=== PATIENT | female | born 1960 | race Caucasian/White ===

== ENCOUNTER 2016-08-16 10:05 | Emergency (ER) | payer BC, OTHER ==
[~2016-08-16] VITALS: Ht 165.1 cm; Wt 90.5 kg
[~2016-08-16 10:05] MED LIST: ALBU0.632 IH; ALBU1.25 IH; AZIT-21 PO; AZIT250T PO; BENZ-13 PO; CEPH500C PO; CETI10TA20 PO; CITA10TA7 PO; CYCL10TA9 PO; DIPH1TAB45 PO; DOXY100C42 PO; EFFEXOR; ESOM20SU PO; ESOM5SUS PO; EST.625T PO; FURO40TA4 PO; HYDR-2889 PO; HYDR-3816 PO; LEVO500T69 PO; LOVA20TA2 PO; LVT.1T PO; MELO-195 PO; MNTL10T PO; MOME13HF2 IH; MONT10TA21 PO; MTF500T PO; NAPR500T PO; NF-ESOM40C PO; ONDA-42 SL; PHEN118S12 PO; POTA10TA6 PO; POTASSIUM PO; PRCD5U PO; PRD20T PO; PRED10TA PO; PREMARIN; PRM25T PO; RT-ALBUINH IH; SCR1T PO; TOLT4CAP PO; TOLT4CAP13 PO; TOPAMAX; TOPI50TA2 PO; TPR100T PO; TRAM-21 PO; TRAM50TA2 PO; TRIA1CAP6 PO; TRIA1TAB2 PO; TRIA1TAB5 PO; VENL150C PO; [UNRECOGNIZED DRUG - OTHER] PO
--- NOTE | 2016-08-16 10:34 | Diagnostic Imaging Report ---
INDICATION: Cough and sore throat. COMPARISON: 07/21/2015. FINDINGS: Frontal and lateral views of the chest demonstrate clear lungs bilaterally. The heart size is normal. There is no pneumothorax. Osseous structures are normal. IMPRESSION: Negative chest. Dictated by: Dictated on workstation # [id number]
--- NOTE | 2016-08-16 10:52 | ED General ---
General Chief Complaint: Cough/Cold/Flu Symptoms Stated Complaint: SORE THROAT, COUGHING Nursing Triage Note: pt reports cough/sore throat since thursday. Pt also reports sore on nose since april. Nursing Sepsis Screen: No Definite Risk Source of Information: Patient Exam Limitations: No Limitations History of Present Illness Time Seen by Provider: 10:08 Initial Comments Patient presents with complaints of cough 4 days and fever at home. Cough is barky in nature. She does have asthma and uses inhalers. She had diarrhea Thursday and but none yesterday. She has soreness and fullness in her throat with enlarged lymph nodes. Her jaw felt stiff this morning. She also complains of a nonhealing lesion in the right nostril which has been present since April. Dr. Bedolla is her primary care provider. 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 Allergies and Home Medications Allergies Coded Allergies: morphine (Verified Allergy, Mild, RASH, ITCHING, AGITATION, 08/31/13) Home Medications Albuterol Sulfate 0.63 Mg/3 Ml Vial.neb 3 ML IH Q 4 - 6 HRS PRN PRN PRN SHORTNESS OF BREATH (Reported) Albuterol Sulfate 1.25 Mg/3 Ml Vial.neb #1 1.25 MG IH Q4H PRN PRN WHEEZING Prescribed by: MIRACLE CHAMBERS on 07/21/15 1137 Albuterol Sulfate 6.7 Gm Hfa.aer.ad #1 2 PUFF IH Q4H PRN PRN WHEEZING Prescribed by: MIRACLE CHAMBERS on 07/21/15 1137 Azithromycin 250 Mg Tablet #6 250 MG PO UD TAKE 2 TABLETS TODAY, THEN TAKE 1 TABLET DAILY FOR 4 MORE DAYS Prescribed by: MIRACLE CHAMBERS on 07/21/15 1137 Azithromycin 250 Mg Tablet #6 250 MG PO UD TAKE 2 TABLETS ON DAY ONE THEN TAKE 1 TABLET DAILY FOR FOUR MORE DAYS Prescribed by: CALI DICKERSON on 08/16/16 1107 Benzonatate 100 Mg Capsule 14Days 200 MG PO TID PRN PRN COUGH Prescribed by: MIRACLE CHAMBERS on 07/21/15 1137 Cetirizine HCl 10 Mg Tablet #30 10 MG PO DAILY Prescribed by: PEDRO HAYDEN on 02/24/14 1142 Citalopram Hydrobromide 10 Mg Tablet 10 MG PO DAILY (Reported) Cyclobenzaprine HCl 10 Mg Tablet #14 10 MG PO Q8H PRN PRN SPASMS Prescribed by: TELMA BARRY on 07/31/151806 Esomeprazole Mag Trihydrate 40 Mg Capsule.dr 40 MG PO HS (Reported) PT. TAKES DELAYED RELEASE CAPSULES AT HOME Hydrocodone/Acetaminophen 1 Each Tablet 1 EACH PO Q4H (Reported) Levothyroxine Sodium 100 Mcg Tablet 100 MCG PO HS (Reported) Metformin Hcl 500 Mg Tablet 500 MG PO IN MORNING (Reported) Mometasone/Formoterol 13 Gm Hfa.aer.ad 2 PUFF IH BID (Reported) Montelukast Sodium 10 Mg Tablet 10 MG PO DAILY (Reported) Potassium Chloride 10 Meq Tablet.sa 20 MEQ PO BID (Reported) TAKES 2 (10MEQ) TABLETS Prednisone 20 Mg Tab #10 20 MG PO BID Prescribed by: MIRACLE CHAMBERS on 07/21/15 113 Tolterodine Tartrate 4 Mg Cap.er.24h 4 MG PO DAILY (Reported) Topiramate 50 Mg Tablet 50 MG PO HS (Reported) MAY TAKE 2 TABLET DAILY Tramadol HCl 50 Mg Tablet #20 50 MG PO Q4H PRN PRN PAIN Prescribed by: TELMA BARRY on 07/31/151806 Triamterene/Hydrochlorothiazid 1 Each Tablet 1 TAB PO HS (Reported) Venlafaxine Hcl 150 Mg Cap.sr.24h 150 MG PO HS (Reported) Constitutional: no symptoms reported EENTM: see HPI Respiratory: see HPI Cardiovascular: no symptoms reported Gastrointestinal: no symptoms reported Genitourinary: no symptoms reported Musculoskeletal: no symptoms reported Skin: no symptoms reported Psychiatric/Neurological: No Symptoms Reported Hematologic/Lymphatic: No Symptoms Reported Past Ilhmsyj-Tsamro-Drkvlm Hx Patient Social History Alcohol Use: Denies Use Recreational Drug Use: No Smoking Status: Never a Smoker Recent Foreign Travel: No Contact w/Someone Who Travel: No Recent Infectious Disease Expo: No Recent Hopitalizations: No Immunizations Up To Date Tetanus Booster (TDap): More than 5yrs PED Vaccines UTD: No Date of Pneumonia Vaccine: Feb 08, 2013 Date of Influenza Vaccine: Jan 30, 2014 Seasonal Allergies Seasonal Allergies: Yes Surgeries HX Surgeries: Yes (EGD/COLONOSCOPY) Surgeries: Appendectomy, Gallbladder, Hysterectomy, Oophorectomy Respiratory Hx Respiratory Disorders: Yes Respiratory Disorders: Asthma, Chronic Bronchitis Cardiovascular Hx Cardiac Disorders: Yes Cardiac Disorders: Chronic Edema/Swelling, High Cholesterol Neurological Hx Neurological Disorders: Yes Neurological Disorders: Headaches /Migraines Reproductive System Hx Reproductive Disorders: No 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 Genitourinary Hx Genitourinary Disorders: Yes (BLADDER CONTROL ISSUES) Gastrointestinal Hx Gastrointestinal Disorders: Yes Gastrointestinal Disorders: Gastroesophageal Reflux, Ulcer Musculoskeletal Hx Musculoskeletal Disorders: Yes (TORN MENISCUS, RUPTURED DISC) Musculoskeletal Disorders: Chronic Back Pain Endocrine Hx Endocrine Disorders: Yes Endocrine Disorders: Hypothyroidsim, Diabetes, Non-Insulin dep HEENT HX ENT Disorders: No Cancer Hx Cancer: No Psychosocial Hx Psychiatric Problems: Yes Behavioral Health Disorders: Anxiety, Depression Integumentary HX Skin/Integumentary Disorder: No Blood Transfusions Hx Blood Disorders: No Family Medical History Significant Family History: No Pertinent Family Hx Family Medial History: Abdominal aortic aneurysm MATERNAL GRANDMOTHER Cancer 03 FATHER (PANCREATIC) Cataract MATERNAL GRANDFATHER Chest pain 03 FATHER Congestive heart failure 03 FATHER Family history: Arthritis 03 MOTHER MATERNAL GRANDMOTHER Family history: Breast disease PATERNAL GRANDMOTHER1 Family history: Cardiovascular disease 03 MOTHER Family history: Diabetes mellitus 03 FATHER Family history: Gastrointestinal disease 03 FATHER Family history: Glaucoma 03 MOTHER Family history: Hypertension 03 FATHER Family history: Osteoporosis 03 MOTHER MATERNAL GRANDMOTHER Headache 03 MOTHER Hearing loss Heart disease 03 FATHER History of - respiratory disease 03 FATHER Human immunodeficiency virus (HIV) seropositivity 09 BROTHER Hypercholesterolemia 03 FATHER 03 MOTHER Myocardial infarction 03 FATHER Prostate cancer MATERNAL GRANDFATHER No Family History of: AIDS Alcoholism Aphasia Cancer of colon Congenital heart disease Cystic fibrosis Dementia Dysphagia Family history: Alzheimer's disease Family history: Thyroid disorder History of - anemia History of drug abuse Infertile Kidney disease Malignant neoplasm of lung Parkinson's disease Psychotic disorder Seizure disorder Stroke Tuberculosis Visual impairment Physical Exam Vital Signs Vital Sign - Last 12Hours 08/16/16 10:15 Temp 99.1 Pulse 101 Resp 18 B/P 95/75 Pulse Ox 97 O2 Delivery Room Air Capillary Refill : Less Than 3 Seconds General Appearance: No Apparent Distress WD/WN Obese HEENT: PERRL/EOMI Normal ENT Inspection Other (effusion behind the left TM. Posterior pharyngeal erythema and edema. Palatal petechiae.) Neck: Supple Lymphadenopathy (L) Lymphadenopathy (R) Respiratory: No Accessory Muscle Use No Respiratory Distress Other (mild rhonchi and wheezing. 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 Norm as Tested Skin: Normal Color Warm/Dry Progress/Results/Core Measures Results/Orders Lab Results Laboratory Tests Test 08/16/16 10:12 Range/Units Group A Streptococcus Screen NEGATIVE NEGATIVE Micro Results Microbiology 08/16/16 Influenza Types A,B Antigen (YOAN) - Final, Complete My Orders Orders-CALI CRISTINA MD Rapid Strep A Screen (08/16/16 10:08) Influenza A And B Antigens (08/16/16 10:08) Chest Pa/Lat (2 View) (08/16/16 10:17) Vital Signs/I&O Vital Sign - Last 12Hours 08/16/16 08/16/16 08/16/16 10:15 10:27 11:13 Temp 99.1 99.1 Pulse 101 89 Resp 18 18 B/P 95/75 Pulse Ox 97 98 O2 Delivery Room Air Room Air Blood Pressure Mean: 82 Progress Note : Progress Note Chest x-ray, influenza screen, and rapid strep screen were all negative. Patient was prescribed azithromycin as her throat exam was suspicious for strep pharyngitis. She had posterior pharyngeal erythema and swelling as well as palatal petechiae. The azithromycin may also help with her bronchitis. Diagnostic Imaging Diagonstic Imaging: Xray Plain Films/CT/US/NM/MRI: chest Comments Chest x-ray viewed by me and report reviewed. See report below: NAME: FELIX MENDOZA [facility] REC#: [id number] PT STATUS: REG ER : 1960 PHYSICIAN: CALI RCISTINA MD ADMIT DATE: 08/16/16/ER Draft Date of Exam:08/16/16 CHEST PA/LAT (2 VIEW) INDICATION: Cough and sore throat. COMPARISON: 07/21/2015. FINDINGS: Frontal and lateral views of the chest demonstrate clear lungs bilaterally. The heart size is normal. There is no pneumothorax. Osseous structures are normal. IMPRESSION: Negative chest. Dictated on workstation # [id number] Dict: 08/16/16 1030 Trans: 08/16/16 1034 [id number] Interpreted by: ROD SANTAMARIA Departure Impression Impression: Primary Impression: Acute bronchitis Qualified Code: J20.9 - Acute bronchitis, unspecified Additional Impressions: Pharyngitis Qualified Code: J02.9 - Acute pharyngitis, unspecified Internal nasal lesion Disposition: HOME, SELF-CARE Condition: Improved Departure-Patient Inst. Decision time for Depature: 10:50 Referrals: MAXIMILIAN BEDOLLA MD (PCP/Family) Primary Care Physician Patient Instructions: Acute Bronchitis, Adult (DC) Add. Discharge Instructions: Complete your antibiotics as prescribed. Replace your toothbrush and any other oral instruments 3 or 4 days into your antibiotic therapy. Use your inhalers as prescribed. Return to care if symptoms worsen or you are not improving after antibiotic therapy. Seek referral to an ENT for evaluation of your internal nasal lesion. All discharge instructions reviewed with patient and/or family. Voiced understanding. Scripts Azithromycin 250 Mg [id number] Mg PO UD #6 TAB TAKE 2 TABLETS ON DAY ONE THEN TAKE 1 TABLET DAILY FOR FOUR MORE DAYS Prov:CALI CRISTINA MD 08/16/16 Copy Copies To 1: MAXIMILIAN BEDOLLA MD, JOSHUA T MD Aug 16, 2016 10:52
[2016-08-16] MEDS ORDERED: AZIT250T5 PO (11:07)
[2016-08-16 11:13] VITALS: BP 106/68
== END 2016-08-16 11:13 | disposition home or self-care (01) ==
LOC: EDUNIT# 10:05 → ER 10:06
DX: J20.9 Acute bronchitis, unspecified (principal); J02.9 Acute pharyngitis, unspecified; E11.9 Type 2 diabetes mellitus without complications; Z79.84 Long term (current) use of oral hypoglycemic drugs; Z79.899 Other long term (current) drug therapy
CPT/HCPCS: 71020; 87430; 87804; 99285

== ENCOUNTER 2016-11-10 22:10 | Emergency (ER) | payer BC, OTHER ==
[~2016-11-10] VITALS: Ht 162.6 cm; Wt 93.4 kg
[~2016-11-10 22:10] MED LIST changes: +AZIT250T5 PO
--- NOTE | 2016-11-10 22:23 | ED Lower Extremity ---
General Chief Complaint: Lower Extremity Stated Complaint: PT INJ RT SLATER/SWELLING Source: patient Exam Limitations: no limitations History of Present Illness Time seen by provider: 22:22 Initial Comments To ER with pain and swelling to the right anterior slater. She was helping load a riding lawnmower onto a tilt trailer. The trailer was in the low position but it tilted upward scraping the right anterior leg about 8 p.m. Since then she's had persistent pain swelling and oozing of blood. She is not up-to-date on her tetanus. She is weightbearing. Onset: just prior to arrival Severity: moderate Pain/Injury Location: right leg Method of Injury: direct blow Modifying Factors: Worse With Movement Allergies and Home Medications Allergies Coded Allergies: morphine (Verified Allergy, Mild, RASH, ITCHING, AGITATION, 08/31/13) Home Medications Albuterol Sulfate 0.63 Mg/3 Ml Vial.neb, 3 ML IH Q 4 - 6 HRS PRN PRN for SHORTNESS OF BREATH, (Reported) Albuterol Sulfate 1.25 Mg/3 Ml Vial.neb, 1.25 MG IH Q4H PRN for WHEEZING, #1 Prescribed by: MIRACLE CHAMBERS on 07/21/15 1137 Albuterol Sulfate 6.7 Gm Hfa.aer.ad, 2 PUFF IH Q4H PRN for WHEEZING, #1 Prescribed by: MIRACLE CHAMBERS on 07/21/15 1137 Azithromycin 250 Mg Tablet, 250 MG PO UD, #6 TAKE 2 TABLETS TODAY, THEN TAKE 1 TABLET DAILY FOR 4 MORE DAYS Prescribed by: MIRACLE CHAMBERS on 07/21/15 1137 Azithromycin 250 Mg Tablet, 250 MG PO UD, #6 TAKE 2 TABLETS ON DAY ONE THEN TAKE 1 TABLET DAILY FOR FOUR MORE DAYS Prescribed by: CALI DICKERSON on 08/16/16 1107 Benzonatate 100 Mg Capsule, 200 MG PO TID PRN for COUGH for 14 Days Prescribed by: MIRACLE CHAMBERS on 07/21/15 1137 Cetirizine HCl 10 Mg Tablet, 10 MG PO DAILY, #30 Prescribed by: PEDRO HAYDEN on 02/24/14 1142 Citalopram Hydrobromide 10 Mg Tablet, 10 MG PO DAILY, (Reported) Cyclobenzaprine HCl 10 Mg Tablet, 10 MG PO Q8H PRN for SPASMS, #14 Ref 0 Prescribed by: TELMA BARRY on 07/31/151806 Esomeprazole Mag Trihydrate 40 Mg Capsule.dr, 40 MG PO HS, (Reported) PT. TAKES DELAYED RELEASE CAPSULES AT HOME Hydrocodone/Acetaminophen 1 Each Tablet, 1 EACH PO Q4H, (Reported) Levothyroxine Sodium 100 Mcg Tablet, 100 MCG PO HS, (Reported) Metformin Hcl 500 Mg Tablet, 500 MG PO IN MORNING, (Reported) Mometasone/Formoterol 13 Gm Hfa.aer.ad, 2 PUFF IH BID, (Reported) Montelukast Sodium 10 Mg Tablet, 10 MG PO DAILY, (Reported) Potassium Chloride 10 Meq Tablet.sa, 20 MEQ PO BID, (Reported) TAKES 2 (10MEQ) TABLETS Prednisone 20 Mg Tab, 20 MG PO BID, #10 Prescribed by: MIRACLE CHAMBERS on 07/21/15 1137 Tolterodine Tartrate 4 Mg Cap.er.24h, 4 MG PO DAILY, (Reported) Topiramate 50 Mg Tablet, 50 MG PO HS, (Reported) MAY TAKE 2 TABLET DAILY Tramadol HCl 50 Mg Tablet, 50 MG PO Q4H PRN for PAIN, #20 Ref 0 Prescribed by: TELMA BARRY on 07/31/151806 Triamterene/Hydrochlorothiazid 1 Each Tablet, 1 TAB PO HS, (Reported) Venlafaxine Hcl 150 Mg Cap.sr.24h, 150 MG PO HS, (Reported) Constitutional: see HPI EENTM: see HPI Respiratory: no symptoms reported Cardiovascular: no symptoms reported Genitourinary: no symptoms reported Musculoskeletal: see HPI Skin: see HPI Psychiatric/Neurological: No Symptoms Reported Past Yrlzsra-Mpexqa-Rpooeg Hx Patient Social History Recent Foreign Travel: No Contact w/Someone Who Travel: No Recent Hopitalizations: No Immunizations Up To Date Tetanus Booster (TDap): More than 5yrs PED Vaccines UTD: No Date of Pneumonia Vaccine: Feb 08, 2013 Date of Influenza Vaccine: Jan 30, 2014 Seasonal Allergies Seasonal Allergies: Yes Surgeries HX Surgeries: Yes (EGD/COLONOSCOPY) Surgeries: Appendectomy, Gallbladder, Hysterectomy, Oophorectomy Respiratory Hx Respiratory Disorders: Yes Respiratory Disorders: Asthma, Chronic Bronchitis Cardiovascular Hx Cardiac Disorders: Yes Cardiac Disorders: Chronic Edema/Swelling, High Cholesterol Neurological Hx Neurological Disorders: Yes Neurological Disorders: Headaches /Migraines Reproductive System Hx Reproductive Disorders: No 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 Genitourinary Hx Genitourinary Disorders: Yes (BLADDER CONTROL ISSUES) Gastrointestinal Hx Gastrointestinal Disorders: Yes Gastrointestinal Disorders: Gastroesophageal Reflux, Ulcer Musculoskeletal Hx Musculoskeletal Disorders: Yes (TORN MENISCUS, RUPTURED DISC) Musculoskeletal Disorders: Chronic Back Pain Endocrine Hx Endocrine Disorders: Yes Endocrine Disorders: Hypothyroidsim, Diabetes, Non-Insulin dep HEENT HX ENT Disorders: No Cancer Hx Cancer: No Psychosocial Hx Psychiatric Problems: Yes Behavioral Health Disorders: Anxiety, Depression Integumentary HX Skin/Integumentary Disorder: No Blood Transfusions Hx Blood Disorders: No Family Medical History Significant Family History: No Pertinent Family Hx Family Medial History: Abdominal aortic aneurysm MATERNAL GRANDMOTHER Cancer 03 FATHER (PANCREATIC) Cataract MATERNAL GRANDFATHER Chest pain 03 FATHER Congestive heart failure 03 FATHER Family history: Arthritis 03 MOTHER MATERNAL GRANDMOTHER Family history: Breast disease PATERNAL GRANDMOTHER1 Family history: Cardiovascular disease 03 MOTHER Family history: Diabetes mellitus 03 FATHER Family history: Gastrointestinal disease 03 FATHER Family history: Glaucoma 03 MOTHER Family history: Hypertension 03 FATHER Family history: Osteoporosis 03 MOTHER MATERNAL GRANDMOTHER Headache 03 MOTHER Hearing loss Heart disease 03 FATHER History of - respiratory disease 03 FATHER Human immunodeficiency virus (HIV) seropositivity 09 BROTHER Hypercholesterolemia 03 FATHER 03 MOTHER Myocardial infarction 03 FATHER Prostate cancer MATERNAL GRANDFATHER No Family History of: AIDS Alcoholism Aphasia Cancer of colon Congenital heart disease Cystic fibrosis Dementia Dysphagia Family history: Alzheimer's disease Family history: Thyroid disorder History of - anemia History of drug abuse Infertile Kidney disease Malignant neoplasm of lung Parkinson's disease Psychotic disorder Seizure disorder Stroke Tuberculosis Visual impairment Physical Exam Vital Signs Capillary Refill : General Appearance: WD/WN, no apparent distress HEENT: PERRL/EOMI, normal ENT inspection Neck: non-tender, full range of motion Respiratory: normal breath sounds, no respiratory distress, no accessory muscle use Hips: bilateral hip non-tender, bilateral hip normal inspection, bilateral hip normal range of motion Legs: right leg other (there is swelling to the right anterior lower leg with an abrasion noted. No laceration. There is surrounding ecchymosis and contusion. Distally she is neurovascularly intact there is no evidence of compartment syndrome.) Knees: bilateral knee non-tender, bilateral knee normal inspection, bilateral knee normal range of motion Ankles: bilateral ankle non-tender, bilateral ankle normal inspection, bilateral ankle normal range of motion Neurologic/Tendon: normal sensation, normal motor functions Skin: normal color, warm/dry Departure Impression Impression: Primary Impression: Contusion of leg Disposition: 01 HOME, SELF-CARE Condition: Stable Departure-Patient Inst. Decision time for Depature: 22:23 Referrals: MAXIMILIAN BEDOLLA MD (PCP/Family) Primary Care Physician Patient Instructions: Contusion (DC) Add. Discharge Instructions: 1. Continue with an ice pack for 30 minutes every 1-2 hours for the rest of tonight 2. Expect bruising to progress downward toward the ankle as gravity pulses blood down over the next few days 3. All discharge instructions reviewed with patient and/or family. Voiced understanding. LISA MADRID BANKING ASSISTANT Nov 10, 2016 22:23
[2016-11-10] MEDS ORDERED: TETANUS,DIPTH,PERTUSS P/F (BOOSTRIX) 0.5 ML VIAL IM ONE (22:30)
[2016-11-10 23:05] VITALS: BP 132/95
--- NOTE | 2016-11-11 06:34 | Diagnostic Imaging Report ---
INDICATION: Right leg injury. AP and lateral views of the right leg are obtained. FINDINGS: Lateral views are somewhat limited due to rotation. No acute fracture or dislocation is identified. No abnormal lytic or sclerotic focus is seen, and there is no radiopaque foreign body. IMPRESSION: No acute abnormality. Dictated by: Dictated on workstation # [id number]
== END 2016-11-10 23:05 | disposition home or self-care (01) ==
LOC: EDUNIT# 22:10 → ER 22:15
DX: S90.31XA Contusion of right foot, initial encounter (principal); J45.909 Unspecified asthma, uncomplicated; E11.9 Type 2 diabetes mellitus without complications; W20.8XXA Other cause of strike by thrown, projected or falling object, initial encounter
CPT/HCPCS: 73590; 90715; 99282

== ENCOUNTER → 2017-03-04 | Outpatient (CLI) | payer BC, OTHER ==
--- NOTE | 2017-03-05 09:10 | Diagnostic Imaging Report ---
Bilateral screening mammogram 2D views with tomosynthesis The current study was also evaluated with a Computer Aided Detection (CAD) system. INDICATION: Screening. No current complaints stated on the questionnaire. COMPARISON: 07/26/12. FINDINGS: The breasts are composed of scattered fibroglandular densities. There is no mass, architectural distortion or suspicious cluster of consideration. There is overall slight density of breasts when compared to prior exams. IMPRESSION: No mammographic evidence of malignancy. ACR BI-RADS Category 2: Benign findings. Result letter will be mailed to the patient. Note: At least 10% of breast cancer is not imaged by mammography. Dictated by: Dictated on workstation # [id number]
== END ==
LOC: RAD 15:25
PROVIDERS: ATTEND Obstetrics & Gynecology
DX: Z12.31 Encounter for screening mammogram for malignant neoplasm of breast (principal)
CPT/HCPCS: 77067

== ENCOUNTER → 2017-03-13 | Outpatient (CLI) | payer BC, OTHER ==
[~2017-03-13] MED LIST changes: +BARIUM SUSPENSION 2.1% (VANILLA SILQ) 450 ML PO ONE; +IOHEXOL 350 MG/ML 100 ML (OMNIPAQUE 350) VIAL IV ONE; +NS 100 ML (IVPB) BAG IV ONE
[2017-03-13 09:34] LABS: CREATININE SERUM 1.01 MG/DL (0.60-1.30)
--- NOTE | 2017-03-13 11:54 | Diagnostic Imaging Report ---
PROCEDURE: CT abdomen and pelvis with contrast. TECHNIQUE: Multiple contiguous axial images were obtained through the abdomen and pelvis after administration of intravenous contrast. INDICATION: Pelvic pain. FINDINGS: The lung bases appear clear. The liver, the spleen, the adrenals, and the pancreas appear unremarkable. Cholecystectomy clips are seen. The kidneys have symmetric enhancement and contrast excretion. There is no hydronephrosis. The urinary bladder appears unremarkable. Moderate amount of fecal material is seen in the colon. No bowel obstruction. No significant free fluid or fluid collection in the abdomen or pelvis is seen. The abdominal aorta is normal in caliber. No periaortic significantly enlarged lymph node is seen. The osseous structures demonstrate a sclerotic focus in the sacrum along the upper aspect of the right sacrum ala measuring 8 mm. This is probably a bony island. It is stable from 12/09/2014 exam. No destructive bone mass is identified. IMPRESSION: No acute process. Dictated by: Dictated on workstation # [id number]
== END ==
LOC: RAD 09:05
PROVIDERS: ATTEND Obstetrics & Gynecology
DX: R10.2 Pelvic and perineal pain (principal)
CPT/HCPCS: 36415; 74177; 82565; 84520

== ENCOUNTER → 2018-02-19 | Outpatient (CLI) | payer BC, OTHER ==
[~2018-02-19] MED LIST changes: +AZIT250T12 PO; -AZIT250T5 PO; -BARIUM SUSPENSION 2.1% (VANILLA SILQ) 450 ML PO ONE; -BENZ-13 PO; +BENZ100C18 PO; +HYDR-34 PO; -HYDR-3816 PO; -IOHEXOL 350 MG/ML 100 ML (OMNIPAQUE 350) VIAL IV ONE; +NAPR-1071 PO; -NAPR500T PO; -NS 100 ML (IVPB) BAG IV ONE
--- NOTE | 2018-02-19 17:04 | Diagnostic Imaging Report ---
Cervical spine at 2:58 p.m. INDICATION: Neck pain. AP, lateral and odontoid views are obtained. FINDINGS: The lateral view shows the vertebral body heights and alignment to be within normal limits and similar to the prior exam of 12/27/12. The MRI cervical spine exam of 01/05/2013 did note that there was narrowing of the disc space at C6-C7. On this study, the disc space may be somewhat more narrowed than on the prior exam. The other intervertebral spaces are fairly well maintained. There is no fracture or acute bony abnormality evident. There is no sign of retropharyngeal edema. The lung apices are clear. IMPRESSION: 1. There is no evidence for an acute bony abnormality. 2. The degenerative disc and bony disease at C6-C7 noted previously does appear to have progressed somewhat. If further evaluation of the thecal sac and nerve roots at this level is desired, then a repeat MRI cervical spine exam should be obtained. Dictated by: Dictated on workstation # [id number]
== END ==
LOC: RAD 14:17
PROVIDERS: ATTEND Nurse Practitioner Family
DX: M50.323 Other cervical disc degeneration at C6-C7 level (principal); M89.9 Disorder of bone, unspecified
CPT/HCPCS: 72040

== ENCOUNTER → 2018-02-19 | Outpatient (CLI) | payer BC, OTHER ==
--- NOTE | 2018-02-22 09:03 | Diagnostic Imaging Report ---
INDICATION: Screening. The current study was also evaluated with a Computer Aided Detection (CAD) system. 3-D tomosynthesis was also performed and reviewed. Comparison made with prior examination from 03/04/2017 back through 01/08/2012. FINDINGS: The fibroglandular tissue is heterogeneously dense bilaterally. There is no dominant mass, spiculated lesion or suspicious calcification identified. Skin, nipples and axilla are unremarkable. IMPRESSION: Category one negative. Dictated by: Dictated on workstation # [id number]
== END ==
LOC: RAD 14:12
PROVIDERS: ATTEND Obstetrics & Gynecology
DX: Z12.31 Encounter for screening mammogram for malignant neoplasm of breast (principal)
CPT/HCPCS: 77067

== ENCOUNTER → 2018-02-24 | Outpatient (CLI) | payer BC, OTHER ==
--- NOTE | 2018-02-24 17:30 | Diagnostic Imaging Report ---
PROCEDURE: MR imaging cervical spine without contrast. TECHNIQUE: Multiplanar, multisequence MR imaging of the cervical spine was performed without contrast. INDICATION: Chronic neck pain for several months. Left arm tingling. FINDINGS: There is normal height and alignment of the cervical vertebral bodies. The upper levels are normal. There is mild bulging of annulus at C4-5 with no disc herniation or bony stenosis. There is a small central disc bulge at C5-6 with no disc herniation otherwise seen. There is no bony stenosis. There is broad-based disc bulging at C6-7 eccentric to the left. There is spondylosis causing some bilateral foraminal narrowing. There is no central canal stenosis. There is no mass or acute bony abnormality. There is no intrinsic abnormality of the cervical cord. IMPRESSION: There is appearance of mild degenerative disc and facet disease with no focal disc herniation or central canal stenosis seen at any level. The left paracentral disc protrusion at C6-7 seen on the 01/05/2013 study is considerably less prominent on today's exam with no other significant change from the prior study. Dictated by: Dictated on workstation # [id number]
== END ==
LOC: RAD 16:22
PROVIDERS: ATTEND Nurse Practitioner Family
DX: M50.223 Other cervical disc displacement at C6-C7 level (principal); M50.30 Other cervical disc degeneration, unspecified cervical region; M53.82 Other specified dorsopathies, cervical region
CPT/HCPCS: 72141

== ENCOUNTER 2019-07-18 17:44 | Observation (INO) | payer BC, OTHER ==
[~2019-07-18] VITALS: Ht 165 cm; Wt 101.1 kg
[~2019-07-18 17:44] MED LIST changes: -TRAM50TA2 PO; +TRM50T PO
[2019-07-18] MEDS ORDERED: ASPIRIN 81 MG CHEW (CHILDREN'S ASA) PO ONE (18:00)
[2019-07-18 18:05] LABS: BASOPHILS % (AUTO) 0 % (0-10); EOSINOPHILS # (AUTO) 0.1 10^3/uL (0.0-0.3); EOSINOPHILS % (AUTO) 1 % (0-10); HEMATOCRIT 44 % (35-52); HEMOGLOBIN 15.7 G/DL (11.5-16.0); LYMPHOCYTES # (AUTO) 3.5 X 10^3 (1.0-4.0); LYMPHOCYTES % (AUTO) 29 % (12-44); MEAN CORPUSCULAR HEMOGLOBIN 29 PG (25-34); MEAN CORPUSCULAR HGB CONC 36 G/DL (32-36); MEAN CORPUSCULAR VOLUME 82 FL (80-99); MEAN PLATELET VOLUME 9.7 FL (7.4-10.4); MONOCYTES % (AUTO) 8 % (0-12); NEUTROPHILS # (AUTO) 7.3 X 10^3 (1.8-7.8); NEUTROPHILS % (AUTO) 62 % (42-75); PLATELET COUNT 281 10^3/uL (130-400); RED CELL DISTRIBUTION WIDTH 15.1 % (10.0-14.5); WHITE BLOOD COUNT 11.9 10^3/uL (4.3-11.0)
--- NOTE | 2019-07-18 18:05 | ED Chest Pain ---
General Chief Complaint: Chest Pain Stated Complaint: RACING HEART,ARM HURTS Source: patient Exam Limitations: no limitations History of Present Illness Date Seen by Provider: Jul 18, 2019 Time Seen by Provider: 17:44 Initial Comments Patient arrives to the ER by private conveyance with her significant other and chief complaint that for the past she's had intermittent runs of palpitations and racing heart rate and now today she is having chest pressure that started about 20 minutes ago with lots of palpitations. She says the pain in her chest radiates to her left shoulder and down her left arm. She has no previous history of coronary disease or familial history of coronary disease. She does not smoke cigarettes or use tobacco nor did she have her. She does not drink or use recreational drugs. She has a history of hypertension on sotalol and diabetes as well as hyperlipidemia. She is known to Dr. Durbin and had a heart catheter many years ago. Echocardiogram 2012 with an EF of 60%. Cardiac catheterization [address] Durbin: Dominant left circumflex with small nondominant right. Mild disease of the distal LAD, nonobstructive disease. EF 60%. Allergies and Home Medications Allergies Coded Allergies: morphine (Verified Allergy, Mild, RASH, ITCHING, AGITATION, 08/31/13) Home Medications Esomeprazole Mag Trihydrate 40 Mg Capsule.dr, 40 MG PO HS, (Reported) PT. TAKES DELAYED RELEASE CAPSULES AT HOME Hydrocodone Bit/Acetaminophen 1 Each Tablet, 1 EACH PO Q4H, (Reported) Levothyroxine Sodium 100 Mcg Tablet, 100 MCG PO HS, (Reported) Metformin Hcl 500 Mg Tablet, 500 MG PO IN MORNING, (Reported) Montelukast Sodium 10 Mg Tablet, 10 MG PO DAILY, (Reported) Potassium Chloride 10 Meq Tablet.sa, 20 MEQ PO BID, (Reported) TAKES 2 (10MEQ) TABLETS Tolterodine Tartrate 4 Mg Cap.er.24h, 4 MG PO DAILY, (Reported) Topiramate 50 Mg Tablet, 50 MG PO HS, (Reported) MAY TAKE 2 TABLET DAILY Triamterene/Hydrochlorothiazid 1 Each Tablet, 1 TAB PO HS, (Reported) Venlafaxine Hcl 150 Mg Cap.sr.24h, 150 MG PO HS, (Reported) Patient Home Medication List Home Medication List Reviewed: Yes Review of Systems Review of Systems Constitutional: No chills, No dizziness, No fever, No malaise EENTM: No Blurred Vision, No Double Vision Respiratory: Denies Cough; Shortness of Air Cardiovascular: See HPI, Chest Pain; Denies Edema; Irregular Heart Rate; Denies Lightheadedness; Palpitations; Denies Syncope Gastrointestinal: Denies Abdomen Distended, Denies Abdominal Pain Genitourinary: Denies Burning, Denies Discharge Musculoskeletal: No back pain, No joint pain Skin: No pruritus, No rash Psychiatric/Neurological: Denies Headache, Denies Numbness All Other Systems Reviewed Negative Unless Noted: Yes Past Llfyjpq-Nhdvgg-Hzttag Hx Patient Social History Alcohol Use: Denies Use Recreational Drug Use: No Smoking Status: Never a Smoker Recent Foreign Travel: No Contact w/Someone Who Travel: No Recent Hopitalizations: No Immunizations Up To Date Tetanus Booster (TDap): More than 5yrs PED Vaccines UTD: No Date of Pneumonia Vaccine: Feb 08, 2013 Date of Influenza Vaccine: Jan 30, 2014 Seasonal Allergies Seasonal Allergies: Yes Past Medical History Surgeries: Yes (EGD/COLONOSCOPY) Appendectomy, Gallbladder, Hysterectomy, Oophorectomy Respiratory: Yes Asthma, Chronic Bronchitis Cardiac: Yes Chronic Edema/Swelling, High Cholesterol Neurological: Yes Headaches /Migraines Reproductive Disorders: No BROKER History: Menopausal Sexually Transmitted Disease: No Genitourinary: No Gastrointestinal: Yes Gastroesophageal Reflux, Ulcer Musculoskeletal: Yes (TORN MENISCUS, RUPTURED DISC) Chronic Back Pain Endocrine: Yes Hypothyroidsim, Diabetes, Non-Insulin dep HEENT: No Cancer: No Psychosocial: Yes Anxiety, Depression Integumentary: No Blood Disorders: No Family Medical History Abdominal aortic aneurysm MATERNAL GRANDMOTHER Cancer 03 FATHER (PANCREATIC) Cataract MATERNAL GRANDFATHER Chest pain 03 FATHER Congestive heart failure 03 FATHER Family history: Arthritis 03 MOTHER MATERNAL GRANDMOTHER Family history: Breast disease PATERNAL GRANDMOTHER1 Family history: Cardiovascular disease 03 MOTHER Family history: Diabetes mellitus 03 FATHER Family history: Gastrointestinal disease 03 FATHER Family history: Glaucoma 03 MOTHER Family history: Hypertension 03 FATHER Family history: Osteoporosis 03 MOTHER MATERNAL GRANDMOTHER Headache 03 MOTHER Hearing loss Heart disease 03 FATHER History of - respiratory disease 03 FATHER Human immunodeficiency virus (HIV) seropositivity 09 BROTHER Hypercholesterolemia 03 FATHER 03 MOTHER Myocardial infarction 03 FATHER Prostate cancer MATERNAL GRANDFATHER No Family History of: AIDS Alcoholism Aphasia Cancer of colon Congenital heart disease Cystic fibrosis Dementia Dysphagia Family history: Alzheimer's disease Family history: Thyroid disorder History of - anemia History of drug abuse Infertile Kidney disease Malignant neoplasm of lung Parkinson's disease Psychotic disorder Seizure disorder Stroke Tuberculosis Visual impairment No Pertinent Family Hx Physical Exam Vital Signs Vital Signs - First Documented 07/18/19 17:45 Pulse 98 Resp 18 B/P (MAP) 113/79 (90) Pulse Ox 98 O2 Delivery Room Air Capillary Refill : Height, Weight, BMI Height: 5'4.00" Weight: 206lbs. 7.0oz. 93.990846bv; 37.42 BMI Method:Stated General Appearance: Anxious, Mild Distress HEENT: PERRL/EOMI, Normal ENT Inspection, Pharynx Normal, Moist Mucous Membranes Neck: Full Range of Motion, Normal Inspection Respiratory: Lungs Clear, Normal Breath Sounds, No Accessory Muscle Use, No Respiratory Distress Cardiovascular: Regular Rate, Rhythm, Normal Peripheral Pulses Gastrointestinal: Normal Bowel Sounds, Non Tender, Soft Extremity: Normal Capillary Refill, Normal Inspection Neurologic/Psychiatric: Alert, Oriented x3 Skin: Normal Color, Warm/Dry Progress/Results/Core Measures Results/Orders Lab Results Laboratory Tests Test 07/18/19 18:00 Range/Units White Blood Count 11.9 H 4.3-11.0 10^3/uL Red Blood Count 5.41 4.35-5.85 10^6/uL Hemoglobin 15.7 11.5-16.0 G/DL Hematocrit 44 35-52 % Mean Corpuscular Volume 82 80-99 FL Mean Corpuscular Hemoglobin 29 25-34 PG Mean Corpuscular Hemoglobin Concent 36 32-36 G/DL Red Cell Distribution Width 15.1 H 10.0-14.5 % Platelet Count 281 130-400 10^3/uL Mean Platelet Volume 9.7 7.4-10.4 FL Neutrophils (%) (Auto) 62 42-75 % Lymphocytes (%) (Auto) 29 12-44 % Monocytes (%) (Auto) 8 0-12 % Eosinophils (%) (Auto) 1 0-10 % Basophils (%) (Auto) 0 0-10 % Neutrophils # (Auto) 7.3 1.8-7.8 X 10^3 Lymphocytes # (Auto) 3.5 1.0-4.0 X 10^3 Monocytes # (Auto) 1.0 0.0-1.0 X 10^3 Eosinophils # (Auto) 0.1 0.0-0.3 10^3/uL Basophils # (Auto) 0.0 0.0-0.1 10^3/uL Prothrombin Time 13.3 12.2-14.7 SEC INR Comment 1.0 0.8-1.4 Activated Partial Thromboplast Time 26 24-35 SEC Sodium Level 138 135-145 MMOL/L Potassium Level 3.3 L 3.6-5.0 MMOL/L Chloride Level 102 98-107 MMOL/L Carbon Dioxide Level 26 21-32 MMOL/L Anion Gap 10 5-14 MMOL/L Blood Urea Nitrogen 20 H 7-18 MG/DL Creatinine 1.20 0.60-1.30 MG/DL Estimat Glomerular Filtration Rate 46 BUN/Creatinine Ratio 17 Glucose Level 152 H 70-105 MG/DL Calcium Level 9.8 8.5-10.1 MG/DL Corrected Calcium 8.5-10.1 MG/DL Magnesium Level 1.8 1.6-2.4 MG/DL Total Bilirubin 0.3 0.1-1.0 MG/DL Aspartate Amino Transf (AST/SGOT) 20 5-34 U/L Alanine Aminotransferase (ALT/SGPT) 31 0-55 U/L Alkaline Phosphatase 74 40-136 U/L Total Protein 7.5 6.4-8.2 GM/DL Albumin 4.6 H 3.2-4.5 GM/DL My Orders Orders - WAYLONIRINA Ekg Tracing (07/18/19 17:48) Continuous Ekg Monitoring (07/18/19 17:48) Cbc With Automated Diff (07/18/19 17:57) Magnesium (07/18/19 17:57) Chest 1 View, Ap/Pa Only (07/18/19 17:57) Ekg Tracing (07/18/19 17:57) Comprehensive Metabolic Panel (07/18/19 17:57) Myoglobin Serum (07/18/19 17:57) Protime With Inr (07/18/19 17:57) Partial Thromboplastin Time (07/18/19 17:57) O2 (07/18/19 17:57) Lipid Panel (07/19/19 06:00) Ed Iv/Invasive Line Start (07/18/19 17:57) Troponin I (07/18/19 17:57) Aspirin Chewable Tablet (Baby Aspirin Ch (07/18/19 18:00) Cardizem Drip (07/18/19 18:30) Medications Given in ED Current Medications Medications Dose Ordered Sig/West Route Start Time Stop Time Status Last Admin Dose Admin Aspirin 324 mg ONCE ONCE PO 07/18/19 18:00 07/18/19 18:01 DC 07/18/19 18:10 324 MG Vital Signs/I&O 07/18/19 07/18/19 17:45 17:45 Pulse 98 Resp 18 B/P (MAP) 113/79 (90) Pulse Ox 98 O2 Delivery Room Air Progress Progress Note : Time: 18:08 Progress Note Establish an IV give her some aspirin and get labs make consultation with cardiology. We obtained an EKG demonstrating SVT. Runs last about 6-10 seconds and she is able to terminate them using Valsalva maneuver. Initial ECG Impression Date: Jul 18, 2019 Initial ECG Impression Time: 17:51 Initial ECG Rate: 175 Initial ECG Rhythm: SVT Initial ECG Intervals: QT (471) Initial ECG Impression: Normal, Nonspecific Changes Comment SVT without clinically relevant ST elevation or depression. EKG : EKG Time: 17:53 Rate: 176 Rhythm: SVT Intervals: Normal ECG Comparisson: Unchanged ECG Impression: SVT Comment SVT without clinically relevant ST elevation or depression. Diagnostic Imaging Diagonstic Imaging: Xray Plain Films/CT/US/NM/MRI: chest Comments No acute cardiopulmonary process noted on one view chest x-ray. Reviewed: Reviewed by Me Departure Communication (Admissions) Time/Spoke to Admitting Phy: 18:40 Discussed case lab imaging EKG with Dr. Padilla and he agrees to observe the patient in the ICU on Cardizem drip. Time/Spoke to Consulting Phy: 18:15 Discussed case lab EKG with Dr. Durbin and he agrees with Edgar and WILL consult on the patient. Impression Primary Impression: Chest pain Qualified Codes: R07.9 - Chest pain, unspecified Additional Impression: Paroxysmal supraventricular tachycardia by electrocardiogram (ECG) Disposition: ADMITTED INPATIENT Condition: Stable Admissions Decision to Admit Reason: Admit from ER (General) Decision to Admit/Date: Jul 18, 2019 Time/Decision to Admit Time: 18:00 Departure-Patient Inst. Referrals: MAXIMILIAN BEDOLLA MD (PCP/Family) Primary Care Physician IRINA CONNORS Jul 18, 2019 18:05
[2019-07-18 18:17] LABS: PROTHROMBIN TIME PATIENT 13.3 SEC (12.2-14.7)
[2019-07-18 18:23] LABS: ALANINE AMINOTRANSFERASE 31 U/L (0-55); ALBUMIN 4.6 GM/DL (3.2-4.5); ALKALINE PHOSPHATASE 74 U/L (40-136); BILIRUBIN,TOTAL 0.3 MG/DL (0.1-1.0); BUN/CREATININE RATIO 17; CALCIUM 9.8 MG/DL (8.5-10.1); CARBON DIOXIDE 26 MMOL/L (21-32); CHLORIDE 102 MMOL/L (98-107); GFR ESTIMATED 46; GLUCOSE 152 MG/DL (70-105); MAGNESIUM 1.8 MG/DL (1.6-2.4); POTASSIUM 3.3 MMOL/L (3.6-5.0); SODIUM 138 MMOL/L (135-145); TOTAL PROTEIN 7.5 GM/DL (6.4-8.2)
[2019-07-18] MEDS ORDERED: NS IV 1000 ML 1,000 ML IV SCH (18:27)
[2019-07-18] MEDS ORDERED: dilTIAZem DRIP PRE-MIX 125 ML IV SCH (18:30)
--- NOTE | 2019-07-18 18:45 | Diagnostic Imaging Report ---
INDICATION: Tachycardia Frontal chest obtained at 0639 p.m. and is compared to 08/16/2016. Heart and mediastinal silhouette are normal in appearance. The lungs are clear. There is no pneumothorax or pleural fluid. IMPRESSION: Negative chest, no change from 08/16/2016. Dictated by: Dictated on workstation # [id number]
--- NOTE | 2019-07-18 19:07 | NUR ---
FELIX MENDOZA admitted to room CU10-1, with an admitting diagnosis of SVT, on 07/18/19 from ED via cart, accompanied by .FELIX MENDOZA introduced to surroundings, call light, bed controls, phone, TV, temperature control, lights, meal times, smoking policy, visitor policy, side rail policy, bathrooms and showers. Patient Rights given to patient in the handbook. FELIX MENDOZA verbalizes understanding that [facility] is not responsible for the loss or damage to any personal effects or valuables that are kept in the patients possession during their hospitalization. The following Patient Care Plans were discussed with the patient and : Discharge Planning, activity,pain, and diet. FELIX MENDOZA verbalizes understanding of Interdisciplinary Patient Education. Patient and/or family were informed about the Rapid Response Team and its purpose.
[2019-07-18 19:15] VITALS: BP 109/66
[2019-07-18] MEDS ORDERED: CATHETER FLUSH 10 ML SYR IV PRN (19:15)
[2019-07-18] MEDS ORDERED: dilTIAZem DRIP 125 MG/125 ML DRIP IV SCH (19:15)
[2019-07-18] MEDS ORDERED: ACETAMINOPHEN 500 MG TAB (TYLENOL) PO PRN (19:15)
[2019-07-18] MEDS ORDERED: ANTACID SUSP 30 ML UDC (MYLANTA) PO PRN (19:15)
[2019-07-18] MEDS ORDERED: ONDANSETRON 4 MG/2 ML (SDV) Z0FRAN IV PRN (19:15)
[2019-07-18 20:00] VITALS: BP 103/70
[2019-07-18] MEDS: NS W/KCL 20 MEQ/L 1,000 ML IV SCH (20:07)
[2019-07-18 21:00] VITALS: BP 108/58
[2019-07-18] MEDS: inSUlin ASPART (NovoLOG) 1 UNIT/0.01 ML (CHARGE PER UNIT) SC SCH (21:08)
[2019-07-18 22:00] VITALS: BP 95/56
--- NOTE | 2019-07-18 22:25 | NUR ---
Patient c/o CP, without radiation. Patient rated it at 3. EKG done, call to Dr Durbin to report new onset of chest pain. Order to DC Jose feliz at this time.
[2019-07-18 23:00] VITALS: BP 84/40
[2019-07-19] VITALS (12 sets, daily range): BP systolic 82–103; BP diastolic 50–64
[2019-07-19] MEDS: NS W/KCL 20 MEQ/L 1,000 ML IV SCH ×2 (01:47→08:35)
[2019-07-19 03:35] LABS: BASOPHILS % (AUTO) 0 % (0-10); EOSINOPHILS # (AUTO) 0.1 10^3/uL (0.0-0.3); EOSINOPHILS % (AUTO) 1 % (0-10); HEMATOCRIT 39 % (35-52); HEMOGLOBIN 13.5 G/DL (11.5-16.0); LYMPHOCYTES # (AUTO) 3.5 X 10^3 (1.0-4.0); LYMPHOCYTES % (AUTO) 36 % (12-44); MEAN CORPUSCULAR HEMOGLOBIN 29 PG (25-34); MEAN CORPUSCULAR HGB CONC 35 G/DL (32-36); MEAN CORPUSCULAR VOLUME 83 FL (80-99); MEAN PLATELET VOLUME 9.7 FL (7.4-10.4); MONOCYTES # (AUTO) 0.7 X 10^3 (0.0-1.0); MONOCYTES % (AUTO) 8 % (0-12); NEUTROPHILS # (AUTO) 5.3 X 10^3 (1.8-7.8); NEUTROPHILS % (AUTO) 55 % (42-75); PLATELET COUNT 233 10^3/uL (130-400); RED CELL DISTRIBUTION WIDTH 15.2 % (10.0-14.5); WHITE BLOOD COUNT 9.7 10^3/uL (4.3-11.0)
[2019-07-19 03:54] LABS: BUN/CREATININE RATIO 20; CALCIUM 8.8 MG/DL (8.5-10.1); CARBON DIOXIDE 23 MMOL/L (21-32); CHLORIDE 106 MMOL/L (98-107); CHOLESTEROL 131 MG/DL (< 200); CREATININE SERUM 0.91 MG/DL (0.60-1.30); GFR ESTIMATED > 60; GLUCOSE 115 MG/DL (70-105); HDL CHOLESTEROL 36 MG/DL (40-60); MAGNESIUM 1.7 MG/DL (1.6-2.4); PHOSPHORUS 2.7 MG/DL (2.3-4.7); POTASSIUM 3.2 MMOL/L (3.6-5.0); SODIUM 140 MMOL/L (135-145); TRIGLYCERIDES 103 MG/DL (<150); VLDL CHOLESTEROL 21 MG/DL (5-40)
[2019-07-19] MEDS: inSUlin ASPART (NovoLOG) 1 UNIT/0.01 ML (CHARGE PER UNIT) SC SCH ×2 (04:10→11:00)
[2019-07-19] MEDS: POTASSIUM CL 10MEQ/50ML IVPB 50 ML IV SCH ×4 (04:29→08:16)
[2019-07-19] MEDS: MAGNESIUM 1 GM/100 ML IVPB 100 ML IV SCH ×2 (04:30→05:19)
--- NOTE | 2019-07-19 04:42 | Pulmonary Progress Note ---
Subjective Time Seen by a Provider: 04:41 Sepsis Event Evaluation Height, Weight, BMI Height: 5'4.00" Weight: 206lbs. 7.0oz. 93.033579gy; 36.84 BMI Method:Stated Exam Exam Vital Signs Date Time Temp Pulse Resp B/P (MAP) Pulse Ox O2 Delivery O2 Flow Rate FiO2 07/19/19 03:35 95 Room Air 07/19/19 02:00 68 14 95/59 (71) 96 Room Air 07/19/19 01:00 71 9 91/56 (68) 98 Room Air 07/19/19 00:44 70 07/19/19 00:00 71 10 86/62 (70) 86 Room Air 07/18/19 23:35 36.6 Room Air 07/18/19 23:30 97 Room Air 07/18/19 23:00 77 11 84/40 (55) 96 Room Air 07/18/19 22:00 77 11 95/56 (69) 95 Room Air 07/18/19 21:00 87 20 108/58 (75) 98 Room Air 07/18/19 20:00 98 Room Air 07/18/19 20:00 36.3 07/18/19 20:00 85 14 103/70 (81) 92 Room Air 07/18/19 19:30 96 Room Air 07/18/19 19:16 81 07/18/19 19:15 36.3 81 14 109/66 (80) 96 Room Air 07/18/19 18:57 80 18 96/60 (90) 98 Room Air 07/18/19 17:45 98 18 113/79 (90) 98 07/18/19 17:45 Room Air I & O 07/19/19 07:00 Intake Total 2550 ml Output Total 2150 ml Balance 400 ml Height & Weight Height: 5'4.00" Weight: 206lbs. 7.0oz. 93.879857qu; 36.84 BMI Method:Stated General Appearance: Anxious, Mild Distress HEENT: PERRL/EOMI, Normal ENT Inspection, Pharynx Normal, Moist Mucous Membranes Neck: Full Range of Motion, Normal Inspection Respiratory: Lungs Clear, Normal Breath Sounds, No Accessory Muscle Use, No Respiratory Distress Cardiovascular: Regular Rate, Rhythm, Normal Peripheral Pulses Capillary Refill: Less Than 3 Seconds Extremity: Normal Capillary Refill, Normal Inspection Neurologic/Psychiatric: Alert, Oriented x3 Skin: Normal Color, Warm/Dry Results Lab Laboratory Tests 07/18/19 18:00 07/19/19 03:19 Assessment/Plan Assessment/Plan Chest pain Paroxysmal supraventricular tachycardia by electrocardiogram MARCO ANTONIO MA DO Jul 19, 2019 04:42
[2019-07-19] MEDS ORDERED: KCL 20 MEQ TAB (K-DUR) PO SCH (06:00)
[2019-07-19] MEDS ORDERED: POTASSIUM CL 10MEQ/50ML IVPB 50 ML IV SCH (06:00)
[2019-07-19] MEDS ORDERED: MAGNESIUM 1 GM/100 ML IVPB 100 ML IV SCH (06:00)
--- NOTE | 2019-07-19 07:47 | Consultation-Cardiology ---
HPI-Cardiology Cardiology Consultation Date of Consultation 07/19/19 Date of Admission Time Seen by Provider: 07:44 Indication: Chest pain HPI 59-year-old lady with history of palpitation, started to have occasional episode of palpitation was feeling racing heart, came into the emergency room last night with increasing palpitation was in sinus tachycardia, she was started on Car dizem drip, became borderline hypotensive and her heart rate has improved. Cardizem drip was discontinued, reporting mild chest pressure usually left sided retrosternal not radiating. Denied any syncope or near syncopal episodes. No claudications Home Medications & Allergies Allergies: Coded Allergies: morphine (Verified Allergy, Mild, RASH, ITCHING, AGITATION, 08/31/13) Home Medication List Reviewed: Yes [id number] Hx Patient Social History Marital Status: Employed/Student: employed Alcohol Use: Denies Use Recreational Drug Use: No Smoking Status: Never a Smoker Recent Foreign Travel: No Recent Infectious Disease Expo: No Recent Hopitalizations: No Immunizations Up To Date Tetanus Booster (TDap): More than 5yrs Date of Pneumonia Vaccine: Feb 08, 2013 Date of Influenza Vaccine: Apr 01, 2019 Past Medical History Discussed below Family Medical History Significant Family History: No Pertinent Family Hx Family History: Abdominal aortic aneurysm MATERNAL GRANDMOTHER Cancer 03 FATHER (PANCREATIC) Cataract MATERNAL GRANDFATHER Chest pain 03 FATHER Congestive heart failure 03 FATHER Family history: Arthritis 03 MOTHER MATERNAL GRANDMOTHER Family history: Breast disease PATERNAL GRANDMOTHER1 Family history: Cardiovascular disease 03 MOTHER Family history: Diabetes mellitus 03 FATHER Family history: Gastrointestinal disease 03 FATHER Family history: Glaucoma 03 MOTHER Family history: Hypertension 03 FATHER Family history: Osteoporosis 03 MOTHER MATERNAL GRANDMOTHER Headache 03 MOTHER Hearing loss Heart disease 03 FATHER History of - respiratory disease 03 FATHER Human immunodeficiency virus (HIV) seropositivity 09 BROTHER Hypercholesterolemia 03 FATHER 03 MOTHER Myocardial infarction 03 FATHER Prostate cancer MATERNAL GRANDFATHER No Family History of: AIDS Alcoholism Aphasia Cancer of colon Congenital heart disease Cystic fibrosis Dementia Dysphagia Family history: Alzheimer's disease Family history: Thyroid disorder History of - anemia History of drug abuse Infertile Kidney disease Malignant neoplasm of lung Parkinson's disease Psychotic disorder Seizure disorder Stroke Tuberculosis Visual impairment Review of Systems-General Review of Systems Constitutional: see HPI; No chills, No dizziness, No fever, No malaise EENTM: see HPI, no symptoms reported Respiratory: no symptoms reported, see HPI Cardiovascular: see HPI, chest pain; No edema, No Hx of Intervention; palpitations; No syncope, No vascular heart diseas, No other Gastrointestinal: no symptoms reported, see HPI Genitourinary: no symptoms reported, see HPI Musculoskeletal: see HPI; No back pain, No joint pain Skin: see HPI; No pruritus, No rash Psychiatric/Neurological: See HPI; Denies Headache, Denies Numbness All Other Systems Reviewed Negative Unless Noted: Yes Reviewed Test Results Reviewed Test Results Lab Laboratory Tests Test 07/18/19 18:00 07/18/19 20:38 07/19/19 00:17 07/19/19 03:19 Range/Units White Blood Count 11.9 H 9.7 4.3-11.0 10^3/uL Red Blood Count 5.41 4.72 4.35-5.85 10^6/uL Hemoglobin 15.7 13.5 11.5-16.0 G/DL Hematocrit 44 39 35-52 % Mean Corpuscular Volume 82 83 80-99 FL Mean Corpuscular Hemoglobin 29 29 25-34 PG Mean Corpuscular Hemoglobin Concent 36 35 32-36 G/DL Red Cell Distribution Width 15.1 H 15.2 H 10.0-14.5 % Platelet Count 281 233 130-400 10^3/uL Mean Platelet Volume 9.7 9.7 7.4-10.4 FL Neutrophils (%) (Auto) 62 55 42-75 % Lymphocytes (%) (Auto) 29 36 12-44 % Monocytes (%) (Auto) 8 8 0-12 % Eosinophils (%) (Auto) 1 1 0-10 % Basophils (%) (Auto) 0 0 0-10 % Neutrophils # (Auto) 7.3 5.3 1.8-7.8 X 10^3 Lymphocytes # (Auto) 3.5 3.5 1.0-4.0 X 10^3 Monocytes # (Auto) 1.0 0.7 0.0-1.0 X 10^3 Eosinophils # (Auto) 0.1 0.1 0.0-0.3 10^3/uL Basophils # (Auto) 0.0 0.0 0.0-0.1 10^3/uL Prothrombin Time 13.3 12.2-14.7 SEC INR Comment 1.0 0.8-1.4 Activated Partial Thromboplast Time 26 24-35 SEC Sodium Level 138 140 135-145 MMOL/L Potassium Level 3.3 L 3.2 L 3.6-5.0 MMOL/L Chloride Level 102 106 98-107 MMOL/L Carbon Dioxide Level 26 23 21-32 MMOL/L Anion Gap 10 11 5-14 MMOL/L Blood Urea Nitrogen 20 H 18 7-18 MG/DL Creatinine 1.20 0.91 0.60-1.30 MG/DL Estimat Glomerular Filtration Rate 46 > 60 BUN/Creatinine Ratio 17 20 Glucose Level 152 H 115 H 70-105 MG/DL Calcium Level 9.8 8.8 8.5-10.1 MG/DL Corrected Calcium 8.5-10.1 MG/DL Magnesium Level 1.8 1.7 1.6-2.4 MG/DL Total Bilirubin 0.3 0.1-1.0 MG/DL Aspartate Amino Transf (AST/SGOT) 20 5-34 U/L Alanine Aminotransferase (ALT/SGPT) 31 0-55 U/L Alkaline Phosphatase 74 40-136 U/L Myoglobin 73.1 10.0-92.0 NG/ML Troponin I < 0.028 < 0.028 <0.028 NG/ML Total Protein 7.5 6.4-8.2 GM/DL Albumin 4.6 H 3.2-4.5 GM/DL Glucometer 128 H 70-110 MG/DL Phosphorus Level 2.7 2.3-4.7 MG/DL Triglycerides Level 103 <150 MG/DL Cholesterol Level 131 < 200 MG/DL LDL Cholesterol Direct 86 1-129 MG/DL VLDL Cholesterol 21 5-40 MG/DL HDL Cholesterol 36 L 40-60 MG/DL Test 07/19/19 06:04 Range/Units Troponin I < 0.028 <0.028 NG/ML Physical Exam Physical Exam Vital Signs Vital Signs - First Documented 07/18/19 07/18/19 17:45 19:15 Temp 36.3 Pulse 98 Resp 18 B/P (MAP) 113/79 (90) Pulse Ox 98 O2 Delivery Room Air Capillary Refill : Less Than 3 Seconds Height, Weight, BMI Height: 5'4.00" Weight: 206lbs. 7.0oz. 93.607723qe; 36.84 BMI Method:Stated General Appearance: Anxious, Mild Distress HEENT: PERRL/EOMI, Normal ENT Inspection, Pharynx Normal, Moist Mucous Memb ranes Neck: Full Range of Motion, Normal Inspection Respiratory: Lungs Clear, Normal Breath Sounds, No Accessory Muscle Use, No Respiratory Distress Cardiovascular: Regular Rate, Rhythm, Normal Peripheral Pulses Gastrointestinal: Normal Bowel Sounds, Non Tender, Soft Extremity: Normal Capillary Refill, Normal Inspection Neurologic/Psychiatric: Alert, Oriented x3 Skin: Normal Color, Warm/Dry A/P-Cardiology Admission Diagnosis Chest pain Palpitation Diabetes mellitus Hypothyroidism Assessment/Plan Chest pain nonspecific etiology, atypical in presentation, EKG and cardiac enzymes did not show any acute abnormality, planning to evaluate stress test today. Palpitation, episode of supraventricular tachycardia, improved with Cardizem, currently heart is back to sinus rhythm with controlled rate, continue to m onitor Hypokalemia, replace and monitor. Diabetes mellitus, followed and managed by primary care physician Hypothyroidism, followed and managed by primary care physician Obesity, BMI is 37, educated on weight loss Clinical Quality Measures DVT/VTE Risk/Contraindication: Risk Factor Score Per Nursin RFS Level Per Nursing on Admit: 2=Moderate MAGGIE CROCKETT MD Jul 19, 2019 07:47
--- NOTE | 2019-07-19 08:58 | Diagnostic Imaging Report ---
INDICATION: Chest pain COMPARISON: 07/18 FINDINGS: The heart, lungs and cardiomediastinal silhouette unremarkable. IMPRESSION: Negative. Dictated by: Dictated on workstation # [id number]
--- NOTE | 2019-07-19 10:06 | Pulmonary Consultation ---
History of Present Illness History of Present Illness Date Seen by Provider: Jul 19, 2019 Time Seen by Provider: 06:00 Date of Admission Reason for Visit: Chest pain History of Present Illness 59yo presented to ED secondary to left sided nonradiating chest pressure and worsening palpitations and was found to have sinus tachycardia. Pt was started on Cardizem gtt then bacame hypotensive. SOB is mild. I am consulted for ICU management. Allergies and Home Medications Allergies Coded Allergies: morphine (Verified Allergy, Mild, RASH, ITCHING, AGITATION, 08/31/13) Home Medications Esomeprazole Mag Trihydrate 40 Mg Capsule.dr, 40 MG PO HS, (Reported) PT. TAKES DELAYED RELEASE CAPSULES AT HOME Hydrocodone Bit/Acetaminophen 1 Each Tablet, 1 EACH PO Q4H, (Reported) Levothyroxine Sodium 100 Mcg Tablet, 100 MCG PO HS, (Reported) Metformin Hcl 500 Mg Tablet, 500 MG PO IN MORNING, (Reported) Montelukast Sodium 10 Mg Tablet, 10 MG PO DAILY, (Reported) Potassium Chloride 10 Meq Tablet.sa, 20 MEQ PO BID, (Reported) TAKES 2 (10MEQ) TABLETS Tolterodine Tartrate 4 Mg Cap.er.24h, 4 MG PO DAILY, (Reported) Topiramate 50 Mg Tablet, 50 MG PO HS, (Reported) MAY TAKE 2 TABLET DAILY Triamterene/Hydrochlorothiazid 1 Each Tablet, 1 TAB PO HS, (Reported) Venlafaxine Hcl 150 Mg Cap.sr.24h, 150 MG PO HS, (Reported) Past Xcatumg-Iktapr-Zmrgsx Hx Patient Social History Alcohol Use: Denies Use Recreational Drug Use: No Smoking Status: Never a Smoker Recent Foreign Travel: No Contact w/Someone Who Travel: No Recent Infectious Disease Expo: No Recent Hopitalizations: No Physical Abuse: No Sexual Abuse: No Immunizations Up To Date Tetanus Booster (TDap): More than 5yrs PED Vaccines UTD: No Date of Pneumonia Vaccine: Feb 08, 2013 Date of Influenza Vaccine: Apr 01, 2019 Seasonal Allergies Seasonal Allergies: Yes Past Medical History Surgeries: Yes (EGD/COLONOSCOPY) Appendectomy, Gallbladder, Hysterectomy, Oophorectomy Respiratory: Yes Asthma, Chronic Bronchitis Cardiac: Yes Chronic Edema/Swelling, High Cholesterol Neurological: Yes Headaches /Migraines : No Reproductive Disorders: 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 Sexually Transmitted Disease: No Genitourinary: No Gastrointestinal: Yes Gastroesophageal Reflux, Ulcer Musculoskeletal: Yes (TORN MENISCUS, RUPTURED DISC) Chronic Back Pain Endocrine: Yes Hypothyroidsim, Diabetes, Non-Insulin dep HEENT: No Cancer: No Psychosocial: Yes Anxiety, Depression Integumentary: No Blood Disorders: No Family Medical History Abdominal aortic aneurysm MATERNAL GRANDMOTHER Cancer 03 FATHER (PANCREATIC) Cataract MATERNAL GRANDFATHER Chest pain 03 FATHER Congestive heart failure 03 FATHER Family history: Arthritis 03 MOTHER MATERNAL GRANDMOTHER Family history: Breast disease PATERNAL GRANDMOTHER1 Family history: Cardiovascular disease 03 MOTHER Family history: Diabetes mellitus 03 FATHER Family history: Gastrointestinal disease 03 FATHER Family history: Glaucoma 03 MOTHER Family history: Hypertension 03 FATHER Family history: Osteoporosis 03 MOTHER MATERNAL GRANDMOTHER Headache 03 MOTHER Hearing loss Heart disease 03 FATHER History of - respiratory disease 03 FATHER Human immunodeficiency virus (HIV) seropositivity 09 BROTHER Hypercholesterolemia 03 FATHER 03 MOTHER Myocardial infarction 03 FATHER Prostate cancer MATERNAL GRANDFATHER No Family History of: AIDS Alcoholism Aphasia Cancer of colon Congenital heart disease Cystic fibrosis Dementia Dysphagia Family history: Alzheimer's disease Family history: Thyroid disorder History of - anemia History of drug abuse Infertile Kidney disease Malignant neoplasm of lung Parkinson's disease Psychotic disorder Seizure disorder Stroke Tuberculosis Visual impairment No Pertinent Family Hx Review of Systems Time Seen by Provider: 10:08 Constitutional: Sweats, Weakness, Malaise; No: Fever, Chills, Other Eyes: No: Pain, Vision change, Conjunctivae inflammation, Eyelid inflammation, Other, Redness ENT: No: Ear pain, Ear discharge, Nose pain, Nose discharge, Nose congestion, Mouth pain, Mouth swelling, Throat pain, Throat swelling, Other Respiratory: Shortness of breath, SOB with excertion; No: Cough, Dry, Wheezing, Hemoptysis, Pleuritic Pain, Sputum, Wheezing, Other Cardiovascular: Chest Pain, Palpitations; No: Orthopnea, Paroxysmal Noc. Dyspnea, Edema, Lt Headedness, Other Gastrointestinal: No: Nausea, Vomiting, Abdominal Pain, Diarrhea, Constipation, Melena, Hematochezia, Other Sepsis Event Evaluation Height, Weight, BMI Height: 5'4.00" Weight: 206lbs. 7.0oz. 93.373494uj; 36.84 BMI Method:Stated Exam Exam Vital Signs Date Time Temp Pulse Resp B/P (MAP) Pulse Ox O2 Delivery O2 Flow Rate FiO2 07/19/19 08:22 95 Room Air 07/19/19 08:00 67 14 89/55 (66) 99 Room Air 07/19/19 07:00 64 11 101/58 (72) 98 Room Air 07/19/19 07:00 69 07/19/19 06:00 80 22 103/63 (76) 100 Room Air 07/19/19 05:15 36.2 66 11 95/64 (74) 98 Room Air 07/19/19 05:00 71 13 82/56 (65) 94 Room Air 07/19/19 04:00 70 11 99/50 (66) 96 Room Air 07/19/19 03:35 95 Room Air 07/19/19 03:00 70 8 101/61 (74) 98 Room Air 07/19/19 02:00 68 14 95/59 (71) 96 Room Air 07/19/19 01:00 71 9 91/56 (68) 98 Room Air 07/19/19 00:44 70 07/19/19 00:00 71 10 86/62 (70) 86 Room Air 07/18/19 23:35 36.6 Room Air 07/18/19 23:30 97 Room Air 07/18/19 23:00 77 11 84/40 (55) 96 Room Air 07/18/19 22:00 77 11 95/56 (69) 95 Room Air 07/18/19 21:00 87 20 108/58 (75) 98 Room Air 07/18/19 20:00 98 Room Air 07/18/19 20:00 36.3 07/18/19 20:00 85 14 103/70 (81) 92 Room Air 07/18/19 19:30 96 Room Air 07/18/19 19:16 81 07/18/19 19:15 36.3 81 14 109/66 (80) 96 Room Air 07/18/19 18:57 80 18 96/60 (90) 98 Room Air 07/18/19 17:45 98 18 113/79 (90) 98 07/18/19 17:45 Room Air I & O 07/19/19 07:00 Intake Total 2850 ml Output Total 2650 ml Balance 200 ml Height & Weight Height: 5'4.00" Weight: 206lbs. 7.0oz. 93.947665yg; 36.84 BMI Method:Stated General Appearance: No Apparent Distress, Anxious, Obese HEENT: PERRL/EOMI, Normal ENT Inspection, Pharynx Normal, Moist Mucous Membranes Neck: Full Range of Motion, Normal Inspection Respiratory: Lungs Clear, Normal Breath Sounds, No Accessory Muscle Use, No Respiratory Distress Cardiovascular: Regular Rate, Rhythm, Normal Peripheral Pulses Capillary Refill: Less Than 3 Seconds Extremity: Normal Capillary Refill, Normal Inspection Neurologic/Psychiatric: Alert, Oriented x3 Skin: Normal Color, Warm/Dry Results Lab Laboratory Tests 07/18/19 18:00 07/19/19 03:19 Assessment/Plan Assessment/Plan CP with palpitations -Cardiology following -stress test today Hypothyroid -Check TSH DM Hypokalemia -Replace Chest pain Palpitation Diabetes mellitus Hypothyroidism Obesity, BMI is 37 -educated on weight loss Possible DAVID -Check outpt PSG MARCO ANTONIO MA DO Jul 19, 2019 10:06
[2019-07-19] MEDS ORDERED: REGADENOSON 0.4 MG/5 ML SYR (LEXISCAN) IV ONE ×2 (10:27→10:45)
[2019-07-19] MEDS ORDERED: LEVO100T7 PO (11:56)
[2019-07-19] MEDS ORDERED: EMPA25TA PO (11:56)
[2019-07-19] MEDS ORDERED: ESTR1TAB24 PO (11:56)
[2019-07-19] MEDS ORDERED: POTA20TA15 PO (11:56)
[2019-07-19] MEDS ORDERED: VENL150C98 PO (11:56)
[2019-07-19] MEDS ORDERED: MONT10TA24 PO (11:56)
[2019-07-19] MEDS ORDERED: NFNEB10T PO (11:56)
[2019-07-19] MEDS ORDERED: SPIR25TA5 PO (11:56)
[2019-07-19] MEDS ORDERED: TRIA1TAB5 PO (11:56)
[2019-07-19] MEDS ORDERED: METF-399 PO (11:56)
--- NOTE | 2019-07-19 11:56 | History & Physical-Hospitalist ---
History of Present Illness HPI/Chief Complaint Melissa Allan is a 59-year-old female with past medical history of diabetes, hypothyroidism, obesity, who presented with chest pain. She reports that it was a burning type pain without radiation. She reports that it was associated with palpitations and racing heart. She reports that she has had palpitations before but it is never like this. She denies any associated nausea or diaphoresis. She denies any shortness of breath. She denies any fevers or chills. She denies any abdominal pain, nausea, or vomiting. She has no other complaints or concerns. She is a nonsmoker. Source: patient Exam Limitations: no limitations Date Seen 07/19/19 Time Seen by a Provider: 11:30 Attending Physician Kenna Gomez MD PCP Donnie Dave MD Referring Physician Date of Admission Jul 18, 2019 at 18:40 Home Medications & Allergies Home Medications Reviewed patient Home Medication Reconciliation performed by pharmacy medication reconciliations coating technician and/or nursing. Patients Allergies have been reviewed. Allergies Allergies Coded Allergies morphine (Verified Allergy, Mild, RASH, ITCHING, AGITATION, 08/31/13) Past Khzyjae-Dmmwju-Tvrlts Hx Past Med/Social Hx: Reviewed Nursing Past Med/Soc Hx Patient Social History Marrital Status: Employed/Student: employed Alcohol Use: Denies Use Recreational Drug Use: No Smoking Status: Never a Smoker Recent Foreign Travel: No Contact w/other who traveled: No Recent Hopitalizations: No Recent Infectious Disease Expo: No Immunizations Up To Date Tetanus Booster (TDap): More than 5yrs Pediatric: No Date of Pneumonia Vaccine: Feb 08, 2013 Date of Influenza Vaccine: Apr 01, 2019 Seasonal Allergies Seasonal Allergies: Yes Past Medical History Surgeries: Appendectomy, Gallbladder, Hysterectomy, Oophorectomy Cardiac: Chronic Edema/Swelling, High Cholesterol Neurological: Headaches /Migraines : No Reproductive: No Sexually Transmitted Disease: No Menopausal Gastrointestinal: Gastroesophageal Reflux, Ulcer Musculoskeletal: Chronic Back Pain Endocrine: Hypothyroidsim, Diabetes, Non-Insulin dep Psychosocial: Anxiety, Depression History of Blood Disorders: No Family History Abdominal aortic aneurysm MATERNAL GRANDMOTHER Cancer 03 FATHER (PANCREATIC) Cataract MATERNAL GRANDFATHER Chest pain 03 FATHER Congestive heart failure 03 FATHER Family history: Arthritis 03 MOTHER MATERNAL GRANDMOTHER Family history: Breast disease PATERNAL GRANDMOTHER1 Family history: Cardiovascular disease 03 MOTHER Family history: Diabetes mellitus 03 FATHER Family history: Gastrointestinal disease 03 FATHER Family history: Glaucoma 03 MOTHER Family history: Hypertension 03 FATHER Family history: Osteoporosis 03 MOTHER MATERNAL GRANDMOTHER Headache 03 MOTHER Hearing loss Heart disease 03 FATHER History of - respiratory disease 03 FATHER Human immunodeficiency virus (HIV) seropositivity 09 BROTHER Hypercholesterolemia 03 FATHER 03 MOTHER Myocardial infarction 03 FATHER Prostate cancer MATERNAL GRANDFATHER No Family History of: AIDS Alcoholism Aphasia Cancer of colon Congenital heart disease Cystic fibrosis Dementia Dysphagia Family history: Alzheimer's disease Family history: Thyroid disorder History of - anemia History of drug abuse Infertile Kidney disease Malignant neoplasm of lung Parkinson's disease Psychotic disorder Seizure disorder Stroke Tuberculosis Visual impairment No Pertinent Family Hx Review of Systems Constitutional: no symptoms reported EENTM: no symptoms reported Respiratory: no symptoms reported Cardiovascular: chest pain, palpitations Gastrointestinal: no symptoms reported Genitourinary: no symptoms reported Musculoskeletal: no symptoms reported Skin: no symptoms reported Psychiatric/Neurological: No Symptoms Reported Physical Exam Physical Exam Vital Signs Vital Signs - First Documented 07/18/19 07/18/19 17:45 19:15 Temp 36.3 Pulse 98 Resp 18 B/P (MAP) 113/79 (90) Pulse Ox 98 O2 Delivery Room Air Capillary Refill : Less Than 3 Seconds Height, Weight, BMI Height: 5'4.00" Weight: 206lbs. 7.0oz. 93.369078qo; 36.84 BMI Method:Stated General Appearance: No Apparent Distress, WD/WN, Obese HEENT: PERRL/EOMI, Pharynx Normal Neck: Normal Inspection, Supple Respiratory: Lungs Clear, Normal Breath Sounds, No Respiratory Distress Cardiovascular: Regular Rate, Rhythm, No Edema, No Murmur Gastrointestinal: Normal Bowel Sounds, Non Tender, Soft Extremity: Normal Inspection, Non Tender, No Pedal Edema Neurologic/Psychiatric: Alert, Oriented x3, No Motor/Sensory Deficits, Normal Mood/Affect Skin: Normal Color, Warm/Dry Results Results/Procedures Labs Laboratory Tests 07/18/19 18:00 07/19/19 03:19 Patient resulted labs reviewed. Imaging: Reviewed Imaging Report Assessment/Plan Admission Diagnosis Chest pain Admission Status: Observation Assessment and Plan Chest pain SVT Troponin remains normal EKG revealed SVT Started on Cardizem Cardiology consulted, appreciate assistance Planning for stress test today Type II diabetes mellitus Sliding scale insulin Hypothyroidism Continue levothyroxine Obesity BMI 37, no acute management needs DVT prophylaxis: Lovenox Diagnosis/Problems Diagnosis/Problems (1) Chest pain Status: Acute Qualifiers: Chest pain type: unspecified Qualified Codes: R07.9 - Chest pain, unspecified (2) SVT (supraventricular tachycardia) Status: Acute (3) Type II diabetes mellitus Status: Chronic Qualifiers: 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
[2019-07-19] MEDS ORDERED: ENOXAPARIN 40 MG/0.4 ML (LOVENOX) SYR SC SCH (12:00)
[2019-07-19] MEDS ORDERED: ESOM20CA PO (12:01)
[2019-07-19] MEDS ORDERED: CYAN500T52 SL (12:02)
[2019-07-19] MEDS ORDERED: ASPI-983 PO (12:02)
[2019-07-19] MEDS ORDERED: TOPI50TA13 PO (12:04)
[2019-07-19] MEDS ORDERED: ATOR20TA66 PO (12:06)
--- NOTE | 2019-07-19 12:16 | Discharge Summary ---
Discharge Summary Hospital Course Was the Problem List Reviewed?: Yes Problems/Dx: (1) Chest pain Status: Acute Qualifiers: Qualified Codes: R07.9 - Chest pain, unspecified Hospital Course Date of Admission: Jul 18, 2019 at 18:40 Admission Diagnosis : Chest pain Family Physician/Provider: Donnie Bedolla MD Date of Discharge: 07/19/19 Discharge Diagnosis: Chest pain Hospital Course: Melissa Allan is a 59-year-old female with past medical history of diabetes, hypothyroidism, obesity, who presented with chest pain. She is initially in supraventricular tachycardia on arrival. She was started on a Cardizem drip and subsequently developed mild hypotension. This was discontinued and she remained in normal sinus rhythm. Cardiology was consulted and performed an echocardiogram which was normal. She also underwent a stress test which was normal. Her cardiac enzymes also remained normal. She should follow-up with her primary care physician in about a week. Labs and Pending Lab Test: Laboratory Tests 07/18/19 18:00: White Blood Count 11.9H, Red Blood Count 5.41, Hemoglobin 15.7, Hematocrit 44, Mean Corpuscular Volume 82, Mean Corpuscular Hemoglobin 29, Mean Corpuscular Hemoglobin Concent 36, Red Cell Distribution Width 15.1H, Platelet Count 281, Mean Platelet Volume 9.7, Neutrophils (%) (Auto) 62, Lymphocytes (%) (Auto) 29, Monocytes (%) (Auto) 8, Eosinophils (%) (Auto) 1, Basophils (%) (Auto) 0, Neutrophils # (Auto) 7.3, Lymphocytes # (Auto) 3.5, Monocytes # (Auto) 1.0, Eosinophils # (Auto) 0.1, Basophils # (Auto) 0.0, Prothrombin Time 13.3, INR Comment 1.0, Activated Partial Thromboplast Time 26, Sodium Level 138, Potassium Level 3.3L, Chloride Level 102, Carbon Dioxide Level 26, Anion Gap 10, Blood Urea Nitrogen 20H, Creatinine 1.20, Estimat Glomerular Filtration Rate 46, BUN/Creatinine Ratio 17, Glucose Level 152H, Calcium Level 9.8, Corrected Calcium , Magnesium Level 1.8, Total Bilirubin 0.3, Aspartate Amino Transf (AST/SGOT) 20, Alanine Aminotransferase (ALT/SGPT) 31, Alkaline Phosphatase 74, Myoglobin 73.1, Troponin I < 0.028, Total Protein 7.5, Albumin 4.6H 07/18/19 20:38: Glucometer 128H 07/19/19 00:17: Troponin I < 0.028 07/19/19 03:19: White Blood Count 9.7, Red Blood Count 4.72, Hemoglobin 13.5, Hematocrit 39, Mean Corpuscular Volume 83, Mean Corpuscular Hemoglobin 29, Mean Corpuscular Hemoglobin Concent 35, Red Cell Distribution Width 15.2H, Platelet Count 233, Mean Platelet Volume 9.7, Neutrophils (%) (Auto) 55, Lymphocytes (%) (Auto) 36, Monocytes (%) (Auto) 8, Eosinophils (%) (Auto) 1, Basophils (%) (Auto) 0, Neutrophils # (Auto) 5.3, Lymphocytes # (Auto) 3.5, Monocytes # (Auto) 0.7, Eosinophils # (Auto) 0.1, Basophils # (Auto) 0.0, Sodium Level 140, Potassium Level 3.2L, Chloride Level 106, Carbon Dioxide Level 23, Anion Gap 11, Blood Urea Nitrogen 18, Creatinine 0.91, Estimat Glomerular Filtration Rate > 60, BUN/Creatinine Ratio 20, Glucose Level 115H, Calcium Level 8.8, Magnesium Level 1.7, Phosphorus Level 2.7, Triglycerides Level 103, Cholesterol Level 131, LDL Cholesterol Direct 86, VLDL Cholesterol 21, HDL Cholesterol 36L 07/19/19 06:04: Troponin I < 0.028, Thyroid Stimulating Hormone (TSH) 1.30 07/19/19 08:20: Glucometer 111H 07/19/19 12:02: Glucometer 137H Home Meds Active Reported Atorvastatin Calcium 20 Mg Tablet 20 Mg PO HS Topiramate 50 Mg Tablet 100 Mg PO HS Aspirin EC (Aspirin) 81 Mg Tablet.dr 81 Mg PO HS Vitamin B-12 (Cyanocobalamin (Vitamin B-12)) 500 Mcg Tab.subl 500 Mcg SL HS Nexium (Esomeprazole Magnesium) 20 Mg Capsule.dr 40 Mg PO DAILY TAKES 2 (20MG) DAILY Triamterene-Hctz 75-50 mg Tab (Triamterene/Hydrochlorothiazid) 1 Each Tablet 1 Ea PO HS Estradiol Tablet (Estradiol) 1 Mg Tablet 1 Mg PO HS Jardiance (Empagliflozin) 25 Mg Tablet 25 Mg PO HS Levothyroxine Sodium 100 Mcg Tablet 100 Mcg PO HS Metformin HCl 1,000 Mg Tablet 1,000 Mg PO BID Spironolactone 25 Mg Tablet 50 Mg PO HS TAKES 2 (25MG) TABS TO EQUAL 50MG Bystolic (Nebivolol HCl) 10 Mg Tab 10 Mg PO HS Venlafaxine HCl ER (Venlafaxine HCl) 150 Mg Cap.er.24h 150 Mg PO HS Potassium Chloride 20 Meq Tab.er.prt 20 Meq PO HS Montelukast Sodium 10 Mg Tablet 10 Mg PO HS Tolterodine Tartrate ER (Tolterodine Tartrate) 4 Mg Cap.er.24h 4 Mg PO HS Assessment/Pt Instructions Take medications as prescribed. Follow-up with her primary care physician, Dr. Bedolla. Discharge Planning: <30 minutes discharge planning Discharge Instructions Discharge Diet: Low Sodium Diet Activity as Tolerated: Yes Consultations Cardiology Discharge Physical Examination Vital Signs Vital Signs Date Time Temp Pulse Resp B/P (MAP) Pulse Ox O2 Delivery O2 Flow Rate FiO2 07/19/19 11:44 95 Room Air 07/19/19 10:22 76 16 96/63 (74) 07/19/19 05:15 36.2 General Appearance: No Apparent Distress, Anxious, Obese HEENT: PERRL/EOMI, Pharynx Normal Respiratory: Lungs Clear, Normal Breath Sounds, No Respiratory Distress Cardiovascular: Regular Rate, Rhythm, No Edema, No Murmur Gastrointestinal: Normal Bowel Sounds, Non Tender, Soft Extremity: Normal Inspection, Non Tender, No Pedal Edema Skin: Normal Color, Warm/Dry Neurologic/Psychiatric: Alert, Oriented x3, No Motor/Sensory Deficits, Normal Mood/Affect Allergies: Coded Allergies: morphine (Verified Allergy, Mild, RASH, ITCHING, AGITATION, 08/31/13) Copy Copies To 1: DONNIE BEDOLLA MD Discharge Summary Date of Admission Jul 18, 2019 at 18:40 Date of Discharge Discharge Date: Jul 19, 2019 Discharge Time: 12:11 Admission Diagnosis Chest pain Consults/Procedures Consulations Cardiology Procedures Stress test Discharge Diagnosis Chest pain (1) Chest pain Status: Acute Qualifiers: Qualified Codes: R07.9 - Chest pain, unspecified Clinical Quality Measures DVT/VTE Risk/Contraindication: Risk Factor Score Per Nursin RFS Level Per Nursing on Admit: 2=Moderate RACHAEL GOMEZ MD Jul 19, 2019 12:15
--- NOTE | 2019-07-19 13:28 | NUR ---
SPOKE WITH PT AND WENT THRU THE EXT MED HISTORY TO COMPLETE THE MED REC. POTASSIUM 20 MEQ: DIRECTIONS ARE " 2 TABS DAILY" HOWEVER THE PT SAYS SHE JUST TAKES 1 TAB HS. ALL MEDICATIONS ARE ON THE EXT MED HISTORY AND HAVE GOOD DATING OTC MEDS: NEXIUM VIT B ASPIRIN
--- NOTE | 2019-07-19 18:47 | STRESS TEST ---
DATE OF SERVICE: 07/19/2019 EXERCISE MYOVIEW STRESS TEST REPORT Baseline heart rate is 64. Baseline blood pressure 101/63. Baseline EKG is sinus rhythm with no ischemic changes. In summary, the patient started exercising with a baseline heart rate, blood pressure and EKG mentioned above, was able to exercise for a total of 6 minutes 18 seconds on standard Elias protocol. Test was terminated early and converted to Lexiscan Myoview stress test. The patient received 0.4 mg of Lexiscan followed by 30.1 mCi of technetium-99 Myoview. Throughout the test, there were no EKG changes. The resting and stress images were reviewed and compared in the short axis, horizontal long axis, and vertical long axis views. Review of the images showed breast attenuation with mild decreased uptake involving the mid to apical anterolateral wall with subtle reversibility, no significant ischemia was noted. SSS is 3, SDS is 3, TID value 1.05. On the gated images, the left ventricle appeared to be normal size with normal contractility. Calculated ejection fraction 69%. CONCLUSION: 1. Fair exercise tolerance, a total of 6 minutes 18 seconds on standard Elias protocol. The patient did not achieve her target heart rate, test was terminated and converted to Lexiscan Myoview stress test. 2. The patient tolerated Lexiscan well. 3. Breast attenuation with typical female pattern with no significant ischemia or infarction on SPECT images. 4. Normal left ventricular size with normal contractility. Calculated ejection fraction 69%. Job ID: [id number] DocumentID: [id number] Dictated Date: 07/19/2019 11:46:57 Scaffolder Date: 07/19/2019 11:53:42 Dictated By: MAGGIE CROCKETT MD
[2019-07-20] MEDS ORDERED: LEVOTHYROXINE 100 MCG (LEVOTHROID) TAB PO SCH (06:30)
== END 2019-07-19 13:10 | disposition home or self-care (01) ==
LOC: EDUNIT# 17:44 → ER 17:46 → ICU 18:40 → EDPENDDISTM 07-19 13:00
PROVIDERS: ADMIT Internal Medicine; ATTEND Internal Medicine
DX: R07.89 Other chest pain (principal); R00.2 Palpitations; I47.1 Supraventricular tachycardia; I10 Essential (primary) hypertension; E11.9 Type 2 diabetes mellitus without complications; E78.5 Hyperlipidemia, unspecified; J44.9 Chronic obstructive pulmonary disease, unspecified; G40.909 Epilepsy, unspecified, not intractable, without status epilepticus; K21.9 Gastro-esophageal reflux disease without esophagitis; E87.6 Hypokalemia; E78.00 Pure hypercholesterolemia, unspecified; E66.9 Obesity, unspecified; E03.9 Hypothyroidism, unspecified; G89.29 Other chronic pain; M54.9 Dorsalgia, unspecified; F41.9 Anxiety disorder, unspecified; F32.9 Major depressive disorder, single episode, unspecified; Z68.37 Body mass index [BMI] 37.0-37.9, adult; Z79.891 Long term (current) use of opiate analgesic; Z79.899 Other long term (current) drug therapy; Z90.89 Acquired absence of other organs; Z90.710 Acquired absence of both cervix and uterus; Z79.84 Long term (current) use of oral hypoglycemic drugs; Z82.61 Family history of arthritis; Z80.9 Family history of malignant neoplasm, unspecified
CPT/HCPCS: 36415; 71045; 78452; 80048; 80053; 80061; 82962; 83735; 83874; 84100; 84443; 84484; 85025; 85610; 85730; 87081; 93005; 93017; 93306; G0378

== ENCOUNTER → 2019-07-27 | Outpatient (CLI) | payer BC, OTHER ==
[~2019-07-27] MED LIST changes: +ASPI-983 PO; +ATOR20TA66 PO; +CYAN500T52 SL; +EMPA25TA PO; +ESOM20CA PO; +ESTR1TAB24 PO; +HOLD METFORMIN - RECEIVED CONTRAST 20 ML VIAL IV SCH; +IOHEXOL 350 MG/ML 100 ML (OMNIPAQUE 350) VIAL IV ONE; +LEVO100T7 PO; +METF-399 PO; +MONT10TA26 PO; +NFNEB10T PO; +NS 100 ML (IVPB) BAG IV ONE; +POTA20TA15 PO; +SPIR25TA5 PO; +TOPI50TA13 PO; +VENL150C98 PO
--- NOTE | 2019-07-27 09:14 | Diagnostic Imaging Report ---
PROCEDURE: CT angiography of the abdomen and chest with and without contrast. TECHNIQUE: After intravenous administration of contrast, thin section axial CT angiography of the abdomen and chest were obtained. 3D MIP reformats were provided. Auto Exposure Controls were utilized during the CT exam to meet ALARA standards for radiation dose reduction. INDICATION: Tachycardia. COMPARISON: Correlation is made with prior CT abdomen study from 03/13/2017. No prior CT chest study is available for comparison. FINDINGS: CT angiogram chest: The thoracic aorta is normal in caliber. No dissection is identified. There is no aneurysm. Pulmonary arterial system is unremarkable. No thromboembolism is detected. No pericardial or pleural fluid is identified. No axillary lymphadenopathy is detected. No mediastinal or hilar lymphadenopathy is detected. No pulmonary infiltrates, nodules, or masses are detected. IMPRESSION: Unremarkable CT angiogram of the chest. CT angiogram abdomen: The abdominal aorta is normal in caliber. No aneurysm or dissection is identified. No discrete liver mass is detected. The gallbladder is surgically absent. No biliary ductal dilatation is seen. The pancreas and spleen are unremarkable. No adrenal mass is detected. Kidneys are unremarkable. No central retroperitoneal or mesenteric lymphadenopathy is seen. Small and large bowel loops are normal in caliber. There is no ascites. Generalized lumbar spondylosis is noted. IMPRESSION: Essentially unremarkable CT angiogram of the abdomen. Dictated by: Dictated on workstation # [id number]
== END ==
LOC: RAD 08:03
PROVIDERS: ATTEND Internal Medicine Cardiovascular Disease
DX: I25.10 Atherosclerotic heart disease of native coronary artery without angina pectoris (principal); E78.2 Mixed hyperlipidemia; E11.9 Type 2 diabetes mellitus without complications; R00.0 Tachycardia, unspecified
CPT/HCPCS: 71275; 74175

== ENCOUNTER 2019-08-08 15:16 | Outpatient (RCR) | payer BC, OTHER ==
[~2019-08-08 15:16] MED LIST changes: -HOLD METFORMIN - RECEIVED CONTRAST 20 ML VIAL IV SCH; -IOHEXOL 350 MG/ML 100 ML (OMNIPAQUE 350) VIAL IV ONE; -NS 100 ML (IVPB) BAG IV ONE
== END 2019-11-06 | disposition home or self-care (01) ==
LOC: CARD 15:16
PROVIDERS: ATTEND Physician Assistant
DX: I25.10 Atherosclerotic heart disease of native coronary artery without angina pectoris (principal); R07.9 Chest pain, unspecified; E11.9 Type 2 diabetes mellitus without complications; E78.5 Hyperlipidemia, unspecified
CPT/HCPCS: 93270

== ENCOUNTER → 2020-08-31 | Outpatient (CLI) | payer BC, OTHER ==
[~2020-08-31] MED LIST changes: +ASPI-1238 PO; -ASPI-983 PO; -MONT10TA26 PO; +MONT10TA32 PO
--- NOTE | 2020-08-31 14:00 | Diagnostic Imaging Report ---
INDICATION: Left axillary lump. Patient is status post Covid 19 vaccination shot in the left arm recently. COMPARISON: Correlation is made the prior mammograms of 02/19/2018 and 03/04/2017. TECHNIQUE: 2D and 3D bilateral diagnostic mammography was performed with CAD. FINDINGS: Both breasts are heterogeneously dense, limiting the sensitivity of mammography. No mass or malignant appearing microcalcifications are seen. The axillae are unremarkable. IMPRESSION: No mammographic features suspicious for malignancy are identified. Even so, directed sonographic interrogation of the left axilla at the area of palpable lump is recommended and will be performed today. ACR BI-RADS Category 0: Incomplete. (Needs additional imaging evaluation). Result letter will be mailed to the patient. Note: At least 10% of breast cancer is not imaged by mammography. Dictated by: Dictated on workstation # [id number]
--- NOTE | 2020-08-31 14:01 | Diagnostic Imaging Report ---
INDICATION: Left axillary lump. COMPARISON: Correlation is made with the diagnostic mammogram from earlier this same day. FINDINGS: Sonographic interrogation of the left axilla at the area of lump was performed. There are multiple lymph nodes present. The largest lymph node measures 1.6 x 0.8 x 1.7 cm. A second lymph node measures 1.3 x 0.7 x 1.2 cm. A third lymph node measures 1.2 x 0.8 x 1.0 cm. All lymph nodes demonstrate a fatty hilus and thin overlying capsule. No concerning lymph nodes are detected. IMPRESSION: Fatty, reactive appearing lymph nodes in the left axilla. No other significant abnormality is detected. ACR BI-RADS Category 2: Benign findings. Result letter will be mailed to the patient. Note: At least 10% of breast cancer is not imaged by mammography. Dictated by: Dictated on workstation # [id number]
== END ==
LOC: RAD 12:23
DX: R59.0 Localized enlarged lymph nodes (principal)
CPT/HCPCS: 76642; 77066; G0279; 77062

== ENCOUNTER → 2021-08-30 | Outpatient (CLI) | payer BC, OTHER ==
[~2021-08-30] MED LIST changes: -CITA10TA7 PO; +CITA10TA9 PO; +CYCL10TA25 PO; +MONT-40 PO; -MONT10TA32 PO; +POTA-179 PO; -POTA20TA15 PO; -TOLT4CAP13 PO; +TOLT4CAP26 PO
--- NOTE | 2021-08-30 12:05 | Diagnostic Imaging Report ---
INDICATION: Routine screening. Comparison is made with prior mammogram 08/31/2020 and 02/19/2018. 2-D and 3-D bilateral screening mammography was performed with CAD. Both breasts are heterogeneously dense, limiting the sensitivity of mammography. There is some questionable architectural distortion in the right breast mid depth at the nipple line on the MLO view. This appears to be laterally located on the tomographic images. Additional views are recommended. No discrete mass is identified. No malignant-appearing microcalcifications are seen. Axillae are unremarkable. IMPRESSION: BI-RADS 0 Questional architectural distortion right breast. Additional views are recommended for further evaluation. ACR BI-RADS Category 0: Incomplete. (Needs additional imaging evaluation). Result letter will be mailed to the patient. Note: At least 10% of breast cancer is not imaged by mammography. Dictated by: Dictated on workstation # [id number]
== END ==
LOC: RAD 10:15
PROVIDERS: ATTEND Obstetrics & Gynecology
DX: Z12.31 Encounter for screening mammogram for malignant neoplasm of breast (principal)
CPT/HCPCS: 77063; 77067

== ENCOUNTER → 2021-09-05 | Outpatient (CLI) | payer BC, OTHER ==
--- NOTE | 2021-09-05 13:37 | Diagnostic Imaging Report ---
INDICATION: Questionable architectural distortion on the right. Patient presents for additional views. COMPARISON: Screening study from 08/30/2021. TECHNIQUE: Unilateral right 2D and 3D diagnostic mammography was performed. This included spot compression ML, conventional 90 degree lateral views, and rolled CC views. The current study was evaluated with a Computer Aided Detection (CAD) system. FINDINGS: The additional views fail to demonstrate a discrete mass or architectural distortion. The area of questionable architectural distortion most likely represented superimposed tissue. No suspicious microcalcifications are seen. IMPRESSION: Additional views fail to demonstrate a discrete mass or architectural distortion. Even so, sonographic interrogation of the lateral right breast is recommended and will be performed today. ACR BI-RADS Category 0: Incomplete. (Needs additional imaging evaluation). Result letter will be mailed to the patient. Note: At least 10% of breast cancer is not imaged by mammography. Dictated by: Dictated on workstation # [id number]
--- NOTE | 2021-09-05 15:28 | Diagnostic Imaging Report ---
INDICATION: Right breast architectural distortion. COMPARISON: Correlation is made with the diagnostic mammogram from earlier this same day as well as a screening mammogram from 08/30/2021. FINDINGS: Sonographic interrogation of approximately the 8 to 10 o'clock location of the right breast was performed. No sonographic abnormality is seen. No solid or cystic mass is detected. IMPRESSION: No sonographic abnormality is identified. The patient may return to routine annual screening mammography. ACR BI-RADS Category 1: Negative. Dictated by: Dictated on workstation # [id number]
== END ==
LOC: RAD 12:45
PROVIDERS: ATTEND Obstetrics & Gynecology
DX: R92.8 Other abnormal and inconclusive findings on diagnostic imaging of breast (principal)
CPT/HCPCS: 76642; 77065; G0279

== ENCOUNTER 2022-01-22 05:33 | Outpatient (CLI) | payer BC, OTHER ==
[~2022-01-22] VITALS: Ht 162.6 cm; Wt 98.4 kg
[2022-01-22] MEDS ORDERED: AMIO200T65 PO (15:53)
[2022-01-22] MEDS ORDERED: VERA180T55 PO (15:53)
[2022-01-22] MEDS ORDERED: PROM5SYR PO (15:53)
[2022-01-22] MEDS ORDERED: HYDR-700 PO (15:53)
[2022-01-22] MEDS ORDERED: MULT-1136 PO (15:53)
[2022-01-22] MEDS ORDERED: OMEP40CA6 PO (15:53)
[2022-01-22] MEDS ORDERED: SEMA0.25 SQ (15:53)
== END 2022-01-22 16:04 | disposition home or self-care (01) ==
LOC: PREOP 05:33
PROVIDERS: ATTEND Surgery
DX: Z01.818 Encounter for other preprocedural examination (principal); Z12.11 Encounter for screening for malignant neoplasm of colon

== ENCOUNTER → 2022-03-11 | Outpatient (CLI) | payer BC, OTHER ==
[~2022-03-11] MED LIST changes: +AMIO200T65 PO; +HYDR-700 PO; +MULT-1136 PO; +OMEP40CA6 PO; +PROM5SYR PO; +SEMA0.25 SQ; +VERA180T55 PO
== END ==
LOC: CARD 10:00
PROVIDERS: ATTEND Internal Medicine Cardiovascular Disease
DX: I10 Essential (primary) hypertension (principal); I25.10 Atherosclerotic heart disease of native coronary artery without angina pectoris
CPT/HCPCS: 93306

== ENCOUNTER → 2022-03-19 | Outpatient (CLI) | payer BC, OTHER ==
[~2022-03-19] VITALS: Ht 165 cm; Wt 96.0 kg
[~2022-03-19] MED LIST changes: +REGADENOSON 0.4 MG/5 ML SYR (LEXISCAN) IV ONE
[2022-03-19] MEDS: CATHETER FLUSH 10 ML SYR IVP PRN ×2 (11:57→13:33)
[2022-03-19 13:32] VITALS: BP 120/72
--- NOTE | 2022-03-20 08:02 | Cardiology Stress Test Report ---
Stress Test Report Date of Procedure/Referring: Date of Procedure: Mar 19, 2022 PCP No,Local Physician Admitting Physician Admitting Physician: Attending Physician: Maggie Durbin MD Baseline Heart Rate: 72 Baseline Blood Pressure: Blood Pressure Systolic: 120 Blood Pressure Diastolic: 72 Baseline Vitals Vital Signs Date Time Temp Pulse Resp B/P (MAP) Pulse Ox O2 Delivery O2 Flow Rate FiO2 03/19/22 13:32 76 16 120/72 (88) 98 Room Air Baseline EKG: Baseline EKG: NSR Summary After explaining the procedure to the patient, she signed a consent and then brought to the stress nuclear laboratory. Patient received 0.4 mg Lexiscan for stress test, ECG, heart rate and blood pressure were monitored continuously. Resting and stress dose of radio tracer were injected, imaging was acquired and reviewed in short axis, horizontal long axis and vertical long axis views. TID: 1.1 SSS: 2 SDS: 2 EF: 63 1. Patient tolerated Lexiscan well 2. No significant ischemia or infarction noted on SPECT images 3. Normal left ventricular size, ejection fraction 63% MAGGIE DURBIN MD Mar 20, 2022 08:02
== END ==
LOC: CARD 12:15
PROVIDERS: ATTEND Internal Medicine Cardiovascular Disease
DX: I25.10 Atherosclerotic heart disease of native coronary artery without angina pectoris (principal); I10 Essential (primary) hypertension
CPT/HCPCS: 78452; 93017; A9502

== ENCOUNTER 2022-10-09 18:13 | Emergency (ER) | payer BC, OTHER ==
[~2022-10-09] VITALS: Ht 162 cm; Wt 99.0 kg
[~2022-10-09 18:13] MED LIST changes: +MONT-47 PO; -MONT10TA21 PO; -REGADENOSON 0.4 MG/5 ML SYR (LEXISCAN) IV ONE; +TOPI-241 PO; -TOPI50TA13 PO
--- NOTE | 2022-10-09 18:28 | ED General ---
General Chief Complaint: Fever-Adult/Adol Stated Complaint: SORE THROAT/BODYACHES/FEVER Nursing Triage Note: FEVER, SORE THROAT, LEFT EAR PAIN, AND BODY ACHES STARTING YESTERDAY. Source of Information: Patient History of Present Illness Date Seen by Provider: October 09, 2022 Time Seen by Provider: 18:22 Initial Comments PT ARRIVES VIA POV FROM HOME STATES HE STARTED GETTING SICK AROUND 1600 YESTERDAY AFTERNOON WITH: -BODY ACHES -SORE THROAT -LEFT EAR PAIN -SUBJECTIVE FEVER -NAUSEA AND VOMITED X 1 LAST PM, NO NAUSEA TODAY. 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 PCP: SEAN DIANAS AT DR. SCHMITT / DR. YOUNG'S OFFICE. Allergies and Home Medications Allergies Coded Allergies: morphine (Verified Allergy, Mild, RASH, ITCHING, AGITATION, 08/31/13) Patient Home Medication List Home Medication List Reviewed: Yes Amiodarone HCl (Amiodarone HCl) 200 Mg Tablet, 200 MG PO DAILY, (Reported) Entered as Reported by: KEITH PERSAUD on 01/22/22 1553 Amoxicillin (Amoxicillin) 875 Mg Tablet, 875 MG PO BID Prescribed by: ZOYA BUSBY on 10/09/22 1904 Aspirin (Aspirin EC) 81 Mg Tablet., 81 MG PO HS, (Reported) Entered as Reported by: MADIHA MENA on 07/19/19 1202 Atorvastatin Calcium (Atorvastatin Calcium) 20 Mg Tablet, 20 MG PO HS, (Reported) Entered as Reported by: MADIHA MENA on 07/19/19 1206 Empagliflozin (Jardiance) 25 Mg Tablet, 25 MG PO HS, (Reported) Entered as Reported by: MADIHA MENA on 07/19/19 1156 Estradiol (Estradiol Tablet) 1 Mg Tablet, 1 MG PO HS, (Reported) Entered as Reported by: MADIHA MENA on 07/19/19 1156 Hydroxyzine HCl (Hydroxyzine HCl) 25 Mg Tablet, 25 MG PO TID, (Reported) Entered as Reported by: KEITH PERSAUD on 01/22/221552 Levothyroxine Sodium (Levothyroxine Sodium) 100 Mcg Tablet, 100 MCG PO HS, (Reported) Entered as Reported by: MADIHA MENA on 07/19/191155 Montelukast Sodium (Montelukast Sodium) 10 Mg Tablet, 10 MG PO HS, (Reported) Entered as Reported by: MADIHA MENA on 07/19/191155 Multivitamin (Multivitamin) 1 Each Tablet, 1 EACH PO DAILY, (Reported) Entered as Reported by: KEITH PERSAUD on 01/22/221552 Omeprazole (Omeprazole) 40 Mg Capsule.dr, 40 MG PO DAILY, (Reported) Entered as Reported by: KEITH PERSAUD on 01/22/221552 Potassium Chloride (Potassium Chloride) 20 Meq Tab.er.prt, 20 MEQ PO HS, (Report ed) Entered as Reported by: MADIHA MENA on 07/19/191155 Promethazine HCl/Codeine (Prometh-Codein 6.25-10 mg/5 ml) 6.25 Mg-10 Mg/5 Ml (5 Ml) Syrup, 5 ML PO Q6H PRN for COUGH, (Reported) Entered as Reported by: KEITH PERSAUD on 01/22/221552 Semaglutide (Ozempic) 0.25 Mg/0.2 Ml Pen.injctr, 0.5 MG SQ WEEK, (Reported) Entered as Reported by: KEITH PERSAUD on 01/22/221552 Spironolactone (Spironolactone) 25 Mg Tablet, 50 MG PO HS, (Reported) Entered as Reported by: MADIHA MENA on 07/19/191155 Triamterene/Hydrochlorothiazid (Triamterene-Hctz 75-50 mg Tab) 1 Each Tablet, 1 EA PO HS, (Reported) Entered as Reported by: MADIHA MENA on 07/19/191155 Venlafaxine HCl (Venlafaxine HCl ER) 150 Mg Cap.er.24h, 150 MG PO HS, (Reported) Entered as Reported by: MADIHA MENA on 07/19/191155 Verapamil HCl (Verapamil ER) 180 Mg Tablet.er, 180 MG PO DAILY, (Reported) Entered as Reported by: KEITH PERSAUD on 01/22/22 1553 Review of Systems Review of Systems Constitutional: see HPI, fever EENTM: see HPI, ear pain, throat pain Respiratory: no symptoms reported Cardiovascular: no symptoms reported Gastrointestinal: see HPI Genitourinary: no symptoms reported Musculoskeletal: see HPI (BODY ACHES) Skin: no symptoms reported Psychiatric/Neurological: See HPI, Headache Hematologic/Lymphatic: No Symptoms Reported Immunological/Allergic: no symptoms reported Past Ydnyvwk-Hndcec-Psenet Hx Patient Social History Tobacco Use?: No Substance use?: No Alcohol Use?: No Immunizations Up To Date Tetanus Booster (TDap): More than 5yrs PED Vaccines UTD: No First/Initial COVID19 Vaccinat: YES Second COVID19 Vaccination Ady: YES Third COVID19 Vaccination Date: YES COVID19 Vaccine Retail Representative: DEBORAH Seasonal Allergies Seasonal Allergies: Yes Past Medical History Surgeries: Yes (EGD/COLONOSCOPY) Appendectomy, Gallbladder, Hysterectomy, Oophorectomy Respiratory: Yes Asthma, Chronic Bronchitis Cardiac: Yes Chronic Edema/Swelling, High Cholesterol, Hypertension Neurological: Yes Headaches /Migraines Reproductive Disorders: No 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 Sexually Transmitted Disease: No Genitourinary: No Gastrointestinal: Yes Gastroesophageal Reflux, Ulcer Musculoskeletal: Yes (TORN MENISCUS, RUPTURED DISC) Degenerate Disk Disease, Chronic Back Pain Endocrine: Yes Hypothyroidsim, Diabetes, Non-Insulin dep HEENT: No Cancer: Yes Skin Did You Recieve Any Treatments: Yes What Type of Treatment Did You: Surgical Intervention Psychosocial: Yes Anxiety, Depression Integumentary: Yes (SKIN CANCER) Blood Disorders: No Family Medical History Abdominal aortic aneurysm MATERNAL GRANDMOTHER Cancer 03 FATHER (PANCREATIC) Cataract MATERNAL GRANDFATHER Chest pain 03 FATHER Congestive heart failure 03 FATHER Family history: Arthritis 03 MOTHER MATERNAL GRANDMOTHER Family history: Breast disease PATERNAL GRANDMOTHER1 Family history: Cardiovascular disease 03 MOTHER Family history: Diabetes mellitus 03 FATHER Family history: Gastrointestinal disease 03 FATHER Family history: Glaucoma 03 MOTHER Family history: Hypertension 03 FATHER Family history: Osteoporosis 03 MOTHER MATERNAL GRANDMOTHER Headache 03 MOTHER Hearing loss Heart disease 03 FATHER History of - respiratory disease 03 FATHER Human immunodeficiency virus (HIV) seropositivity 09 BROTHER Hypercholesterolemia 03 FATHER 03 MOTHER Myocardial infarction 03 FATHER Prostate cancer MATERNAL GRANDFATHER No Family History of: AIDS Alcoholism Aphasia Cancer of colon Congenital heart disease Cystic fibrosis Dementia Dysphagia Family history: Alzheimer's disease Family history: Thyroid disorder History of - anemia History of drug abuse Infertile Kidney disease Malignant neoplasm of lung Parkinson's disease Psychotic disorder Seizure disorder Stroke Tuberculosis Visual impairment No Pertinent Family Hx Physical Exam Vital Signs Vital Signs - First Documented 10/09/22 18:22 Temp 38.8 Pulse 98 Resp 16 B/P (MAP) 141/69 (93) Pulse Ox 94 O2 Delivery Room Air Capillary Refill : Less Than 3 Seconds Height, Weight, BMI Height: 5'4.00" Weight: 206lbs. 7.0oz. 93.755264oa; 37.00 BMI Method:Stated General Appearance: No Apparent Distress, WD/WN HEENT: PERRL/EOMI, Moist Mucous Membranes, Other (RIGHT TM OBSCURED BY CERUMEN. LEFT TM INFLAMED. NOSE CLEAR. PHARYNX INFLAMED, WITH EARLY EXUDATES. NO EVIDENCE OF PERITONSILLAR ABSCESS. 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, 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 Norm as Tested Skin: Normal Color, Warm/Dry (VERY WARM) Progress/Results/Core Measures Suspected Sepsis SIRS Temperature: Pulse: 98 Respiratory Rate: 16 Blood Pressure 141 /69 Mean: 93 Results/Orders Lab Results Laboratory Tests Test 10/09/22 18:25 Range/Units Influenza Type A (RT-PCR) Not Detected Not Detecte Influenza Type B (RT-PCR) Not Detected Not Detecte SARS-CoV-2 RNA (RT-PCR) Not Detected Not Detecte Group A Streptococcus Screen POSITIVE H NEGATIVE My Orders Orders - ZOYA BUSBY DO Acetaminophen Tablet (Tylenol Tablet) (10/09/22 18:30) Ibuprofen Tablet (Motrin Tablet) (10/09/22 18:30) Penicillin G Proc/Bryon 1.2 Mu (Bicillin (10/09/22 19:15) Rx-Amoxicillin Capsule (Rx-Polymox Capsu (10/09/22 19:04) Medications Given in ED Current Medications Medications Dose Ordered Sig/West Route Start Time Stop Time Status Last Admin Dose Admin Acetaminophen 1,000 mg ONCE ONCE PO 10/09/22 18:30 10/09/22 18:31 DC 10/09/22 18:36 1,000 MG Ibuprofen 800 mg ONCE ONCE PO 10/09/22 18:30 10/09/22 18:31 DC 10/09/22 18:36 800 MG Penicillin G Procaine/ Benzathine 1,200,000 unit ONCE ONCE IM 10/09/22 19:15 10/09/22 19:16 DC 10/09/22 19:14 1,200,000 UNIT Vital Signs/I&O 10/09/22 10/09/22 10/09/22 10/09/22 18:22 18:36 18:36 19:19 Temp 38.8 38.8 38.8 Pulse 98 97 Resp 16 18 B/P (MAP) 141/69 (93) 127/85 Pulse Ox 94 97 O2 Delivery Room Air Room Air Capillary Refill : Less Than 3 Seconds Blood Pressure Mean: 93 Progress Note : Progress Note PLACED IN ISOLATION ROOM PPE WORN COVID, FLU AND STREP TESTING DONE GIVEN TYLENOL AND MOTRIN FOR FEVER AND PAIN STREP TEST IS POSITIVE. GIVEN PENICILLIN IM DISCUSSED ANTICIPATED COURSE, SYMPTOMATIC TREATMENT, MEDICATION, NEED FOR FOLLOW UP AND RETURN PRECAUTIONS. REVIEWED PRIOR RECORDS, INCLUDING ER VISITS, ADMITS/H&P'S/CONSULTS/DISCHARGE SUMMARIES, TESTS/PROCEDURES Departure Impression Primary Impression: Strep pharyngitis Disposition: 01 HOME, SELF-CARE Condition: Stable Departure-Patient Inst. Decision time for Depature: 19:00 Referrals: KAREN HOLDEN CEMENT MIXER (PCP) Primary Care Physician Patient Instructions: Strep Throat ED Add. Discharge Instructions: LOTS OF CLEAR LIQUIDS--WATER, BROTH, JELLO, GATORADE FREQUENT SALT WATER GARGLES CEPACOL LOZENGES NEEDED FOR THROAT PAIN TYLENOL 1 GRAM PLUS MOTRIN 800 MG 4 TIMES A DAY FOR PAIN OR FEVER FOLLOW UP WITH YOUR DR IN 3-4 DAYS IF NO BETTER, RETURN TO ER IF WORSE All discharge instructions reviewed with patient and/or family. Voiced understanding. Scripts Amoxicillin (Amoxicillin) 875 Mg Tablet 875 MG PO BID, #20 TAB Prov: KEHINDE,ZOYA K DO 10/09/22 ZOYA BUSBY DO October 09, 2022 18:28
[2022-10-09] MEDS ORDERED: IBUPROFEN 800 MG (MOTRIN) TAB PO ONE (18:30)
[2022-10-09] MEDS ORDERED: ACETAMINOPHEN 500 MG TAB (TYLENOL) PO ONE (18:30)
[2022-10-09] MEDS ORDERED: RX-AMOXICILLIN 500 MG CAP #3 PPK PO STA (19:04)
[2022-10-09] MEDS ORDERED: AMOX875T2 PO (19:04)
[2022-10-09] MEDS ORDERED: PEN G PROC/BENZATH 1.2 M UNITS/2 ml (BICILLIN C-R) SYR IM ONE (19:15)
[2022-10-09 19:19] VITALS: BP 127/85
== END 2022-10-09 19:21 | disposition home or self-care (01) ==
LOC: EDUNIT# 18:13 → ER 18:15
DX: J02.0 Streptococcal pharyngitis (principal); E11.9 Type 2 diabetes mellitus without complications; Z79.84 Long term (current) use of oral hypoglycemic drugs; Z20.822 Contact with and (suspected) exposure to COVID-19
CPT/HCPCS: 87430; 87636; 99284

== ENCOUNTER 2022-10-22 16:23 | Inpatient (IN) | payer BC, OTHER ==
[~2022-10-22] VITALS: Ht 162.6 cm; Wt 106.0 kg
[~2022-10-22 16:23] MED LIST changes: +AMOX875T2 PO
[2022-10-22] MEDS ORDERED: ASPIRIN 81 MG CHEW (CHILDREN'S ASA) PO ONE (16:30)
[2022-10-22 16:44] LABS: BASOPHILS % (AUTO) 0 % (0-10); EOSINOPHILS % (AUTO) 0 % (0-10); HEMATOCRIT 41 % (35-52); HEMOGLOBIN 14.5 g/dL (11.5-16.0); LYMPHOCYTES # (AUTO) 2.2 10^3/uL (1.0-4.0); LYMPHOCYTES % (AUTO) 11 % (12-44); MEAN CORPUSCULAR HEMOGLOBIN 30 pg (25-34); MEAN CORPUSCULAR HGB CONC 35 g/dL (32-36); MEAN CORPUSCULAR VOLUME 85 fL (80-99); MEAN PLATELET VOLUME 9.7 fL (9.0-12.2); MONOCYTES % (AUTO) 5 % (0-12); NEUTROPHILS # (AUTO) 16.3 10^3/uL (1.8-7.8); NEUTROPHILS % (AUTO) 83 % (42-75); PLATELET COUNT 205 10^3/uL (130-400); WHITE BLOOD COUNT 19.6 10^3/uL (4.3-11.0)
[2022-10-22 16:52] LABS: ALBUMIN 4.1 GM/DL (3.2-4.5); POTASSIUM 2.7 MMOL/L (3.6-5.0)
[2022-10-22 16:53] LABS: CALCIUM 9.8 MG/DL (8.5-10.1)
--- NOTE | 2022-10-22 16:54 | Diagnostic Imaging Report ---
CHEST 1 VIEW, AP/PA ONLY Indication: Chest pain. Comparison: 07/19/2019 Findings: No focal airspace disease in the visualized lungs. No pleural effusion or pneumothorax. Normal cardiomediastinal silhouette. Impression: 1. No acute cardiopulmonary process by portable radiography. Dictated by: Dictated on workstation # [id number]
[2022-10-22 16:55] LABS: TOTAL PROTEIN 7.9 GM/DL (6.4-8.2)
[2022-10-22 16:56] LABS: BILIRUBIN,TOTAL 0.8 MG/DL (0.1-1.0)
[2022-10-22 16:58] LABS: CREATININE SERUM 1.35 MG/DL (0.60-1.30)
[2022-10-22 17:01] LABS: MAGNESIUM 2.2 MG/DL (1.6-2.4)
[2022-10-22 17:04] LABS: INR 1.1 (0.8-1.4); PROTHROMBIN TIME PATIENT 14.1 SEC (12.2-14.7)
--- NOTE | 2022-10-22 17:16 | ED Chest Pain ---
General Chief Complaint: Cardiac/General Problems Stated Complaint: CHEST PAIN Nursing Triage Note: pt presents with right sided chest pain/pressure that began yesterday. pt was treated for strep throat and finished abx a week ago and shortly after developed james ear pain that radiates down her neck. pt also believes she broke a fever last noc because woke up in a sweat. chest pressure worsens with laying flat. pt also received two notifications from her watch stating she was in a-fib, she has no prior hx of a-fib. History of Present Illness Date Seen by Provider: October 22, 2022 Time Seen by Provider: 16:28 Initial Comments 62-year-old female presents with right sided chest pain/pressure present since last night before bed. She reports being able to sleep through the night but was restless. She awoke and had vomiting but then was able to eat late lunch, no further N/V/D. She is a Type 2 diabetic and since having strep 10/09/22, her blood sugars have been elevated. Her medications have been changed recently for diabetes. Denies previous NC. Dr. 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 Heart cath in 2012, without stents. Echo 03/11/2022 showed an ejection fraction of 60 to 65% which was compatible to the stress test results. She takes 81 mg Aspirin daily in AM. She does not take any anticoagulants. Her PCP is Dr. Robert, she notified them of her elevated glucose readings and they were adjusting her meds. brought her to ED but left to run home. Timing/Duration: other (18 hours) Severity/Quality: moderate Location: substernal Radiation: no radiation Activities at Onset: none Prior CP/Workup: echocardiography, stress test ASA po ETIOLOGIST: No NTG SL ETIOLOGIST: No Associated Symptoms: No abdominal pain, No back pain, No diaphoresis, No dizziness, No edema, No fever/chills; nausea/vomiting (this am); No shortness of breath Allergies and Home Medications Allergies Coded Allergies: morphine (Verified Allergy, Mild, RASH, ITCHING, AGITATION, 08/31/13) Patient Home Medication List Home Medication List Reviewed: Yes Amiodarone HCl (Amiodarone HCl) 200 Mg Tablet, 200 MG PO DAILY, (Reported) Entered as Reported by: KEITH PERSAUD on 01/22/22 155 Amoxicillin (Amoxicillin) 875 Mg Tablet, 875 MG PO BID Prescribed by: ZYOA BUSBY on 10/09/22 190 Aspirin (Aspirin EC) 81 Mg Tablet., 81 MG PO HS, (Reported) Entered as Reported by: MADIHA MENA on 07/19/19 1202 Atorvastatin Calcium (Atorvastatin Calcium) 20 Mg Tablet, 20 MG PO HS, (Reported) Entered as Reported by: MADIHA MENA on 07/19/19 120 Empagliflozin (Jardiance) 25 Mg Tablet, 25 MG PO HS, (Reported) Entered as Reported by: MADIHA MENA on 07/19/19 115 Estradiol (Estradiol Tablet) 1 Mg Tablet, 1 MG PO HS, (Reported) Entered as Reported by: MADIHA MENA on 07/19/19 115 Hydroxyzine HCl (Hydroxyzine HCl) 25 Mg Tablet, 25 MG PO TID, (Reported) Entered as Reported by: KEITH PERSAUD on 01/22/22 155 Levothyroxine Sodium (Levothyroxine Sodium) 100 Mcg Tablet, 100 MCG PO HS, (Reported) Entered as Reported by: MADIHA MENA on 07/19/19 115 Montelukast Sodium (Montelukast Sodium) 10 Mg Tablet, 10 MG PO HS, (Reported) Entered as Reported by: MADIHA MENA on 07/19/19 115 Multivitamin (Multivitamin) 1 Each Tablet, 1 EACH PO DAILY, (Reported) Entered as Reported by: KEITH PERSAUD on 01/22/22 155 Omeprazole (Omeprazole) 40 Mg Capsule., 40 MG PO DAILY, (Reported) Entered as Reported by: KEITH PERSAUD on 01/22/22 155 Potassium Chloride (Potassium Chloride) 20 Meq Tab.er.prt, 20 MEQ PO HS, (Reported) Entered as Reported by: MADIHA MENA on 07/19/19 115 Promethazine HCl/Codeine (Prometh-Codein 6.25-10 mg/5 ml) 6.25 Mg-10 Mg/5 Ml (5 Ml) Syrup, 5 ML PO Q6H PRN for COUGH, (Reported) Entered as Reported by: KEITH PERSAUD on 01/22/22 155 Semaglutide (Ozempic) 0.25 Mg/0.2 Ml Pen.injctr, 0.5 MG SQ WEEK, (Reported) Entered as Reported by: KEITH PERSAUD on 01/22/221552 Spironolactone (Spironolactone) 25 Mg Tablet, 50 MG PO HS, (Reported) Entered as Reported by: MADIHA MENA on 07/19/19 115 Triamterene/Hydrochlorothiazid (Triamterene-Hctz 75-50 mg Tab) 1 Each Tablet, 1 EA PO HS, (Reported) Entered as Reported by: MADIHA MENA on 07/19/19 115 Venlafaxine HCl (Venlafaxine HCl ER) 150 Mg Cap.er.24h, 150 MG PO HS, (Reported) Entered as Reported by: MADIHA MENA on 07/19/19 115 Verapamil HCl (Verapamil ER) 180 Mg Tablet.er, 180 MG PO DAILY, (Reported) Entered as Reported by: KEITH PERSAUD on 01/22/221552 Review of Systems Review of Systems Constitutional: no symptoms reported, see HPI Cardiovascular: See HPI, Chest Pain Gastrointestinal: See HPI; Denies Diarrhea; Nausea, Vomiting All Other Systems Reviewed Negative Unless Noted: Yes Past Koqejvx-Brjfsn-Gzebms Hx Patient Social History Tobacco Use?: No Substance use?: No Alcohol Use?: No Pt feels they are or have been: No Immunizations Up To Date Tetanus Booster (TDap): More than 5yrs PED Vaccines UTD: No Influenza Vaccine Up-to-Date: Yes; Up-to-Date First/Initial COVID19 Vaccinat: YES Second COVID19 Vaccination Ady: YES Third COVID19 Vaccination Date: YES Seasonal Allergies Seasonal Allergies: Yes Past Medical History Surgeries: Yes (EGD/COLONOSCOPY) Appendectomy, Gallbladder, Hysterectomy, Oophorectomy Respiratory: Yes Asthma, Chronic Bronchitis Cardiac: Yes Chronic Edema/Swelling, High Cholesterol, Hypertension Neurological: Yes Headaches /Migraines Reproductive Disorders: No 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: 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 Sexually Transmitted Disease: No Genitourinary: No Gastrointestinal: Yes Gastroesophageal Reflux, Ulcer Musculoskeletal: Yes (TORN MENISCUS, RUPTURED DISC) Degenerate Disk Disease, Chronic Back Pain Endocrine: Yes Hypothyroidsim, Diabetes, Non-Insulin dep HEENT: No Cancer: Yes Skin Did You Recieve Any Treatments: Yes What Type of Treatment Did You: Surgical Intervention Psychosocial: Yes Anxiety, Depression Integumentary: Yes (SKIN CANCER) Blood Disorders: No Adverse Reaction/Blood Tranf: No Family Medical History Reviewed Nursing Family Hx Abdominal aortic aneurysm MATERNAL GRANDMOTHER Cancer 03 FATHER (PANCREATIC) Cataract MATERNAL GRANDFATHER Chest pain 03 FATHER Congestive heart failure 03 FATHER Family history: Arthritis 03 MOTHER MATERNAL GRANDMOTHER Family history: Breast disease PATERNAL GRANDMOTHER1 Family history: Cardiovascular disease 03 MOTHER Family history: Diabetes mellitus 03 FATHER Family history: Gastrointestinal disease 03 FATHER Family history: Glaucoma 03 MOTHER Family history: Hypertension 03 FATHER Family history: Osteoporosis 03 MOTHER MATERNAL GRANDMOTHER Headache 03 MOTHER Hearing loss Heart disease 03 FATHER History of - respiratory disease 03 FATHER Human immunodeficiency virus (HIV) seropositivity 09 BROTHER Hypercholesterolemia 03 FATHER 03 MOTHER Myocardial infarction 03 FATHER Prostate cancer MATERNAL GRANDFATHER No Family History of: AIDS Alcoholism Aphasia Cancer of colon Congenital heart disease Cystic fibrosis Dementia Dysphagia Family history: Alzheimer's disease Family history: Thyroid disorder History of - anemia History of drug abuse Infertile Kidney disease Malignant neoplasm of lung Parkinson's disease Psychotic disorder Seizure disorder Stroke Tuberculosis Visual impairment No Pertinent Family Hx Physical Exam Vital Signs Vital Signs - First Documented 10/22/22 16:27 Pulse 97 Resp 18 B/P (MAP) 123/78 (93) Pulse Ox 97 O2 Delivery Room Air Capillary Refill : Less Than 3 Seconds Height, Weight, BMI Height: 5'4.00" Weight: 206lbs. 7.0oz. 93.347721pw; 37.00 BMI Method:Stated General Appearance: No Apparent Distress, WD/WN Neck: Full Range of Motion, Normal Inspection, Non Tender, Supple Respiratory: Lungs Clear, Normal Breath Sounds Cardiovascular: Regular Rate, Rhythm, No Edema, No Murmur, Normal Peripheral Pulses Gastrointestinal: Normal Bowel Sounds, Non Tender, Soft Extremity: Normal Capillary Refill, Normal Inspection, Normal Range of Motion, Non Tender, No Calf Tenderness, No Pedal Edema Neurologic/Psychiatric: Alert, Oriented x3, No Motor/Sensory Deficits, Normal Mood/Affect Skin: Normal Color, Warm/Dry; No Cyanosis, No Diaphoresis Progress/Results/Core Measures Results/Orders Lab Results Laboratory Tests Test 10/22/22 16:34 10/22/22 16:36 Range/Units White Blood Count 19.6 H 4.3-11.0 10^3/uL Red Blood Count 4.87 3.80-5.11 10^6/uL Hemoglobin 14.5 11.5-16.0 g/dL Hematocrit 41 35-52 % Mean Corpuscular Volume 85 80-99 fL Mean Corpuscular Hemoglobin 30 25-34 pg Mean Corpuscular Hemoglobin Concent 35 32-36 g/dL Red Cell Distribution Width 13.9 10.0-14.5 % Platelet Count 205 130-400 10^3/uL Mean Platelet Volume 9.7 9.0-12.2 fL Immature Granulocyte % (Auto) 1 % Neutrophils (%) (Auto) 83 H 42-75 % Lymphocytes (%) (Auto) 11 L 12-44 % Monocytes (%) (Auto) 5 0-12 % Eosinophils (%) (Auto) 0 0-10 % Basophils (%) (Auto) 0 0-10 % Neutrophils # (Auto) 16.3 H 1.8-7.8 10^3/uL Lymphocytes # (Auto) 2.2 1.0-4.0 10^3/uL Monocytes # (Auto) 1.0 0.0-1.0 10^3/uL Eosinophils # (Auto) 0.0 0.0-0.3 10^3/uL Basophils # (Auto) 0.0 0.0-0.1 10^3/uL Immature Granulocyte # (Auto) 0.1 0.0-0.1 10^3/uL Neutrophils % (Manual) 81 % Lymphocytes % (Manual) 16 % Monocytes % (Manual) 3 % Platelet Estimate NORMAL Blood Morphology Comment NORMAL Prothrombin Time 14.1 12.2-14.7 SEC INR Comment 1.1 0.8-1.4 Activated Partial Thromboplast Time 30 24-35 SEC Sodium Level 132 L 135-145 MMOL/L Potassium Level 2.7 L 3.6-5.0 MMOL/L Chloride Level 93 L 98-107 MMOL/L Carbon Dioxide Level 25 21-32 MMOL/L Anion Gap 14 5-14 MMOL/L Blood Urea Nitrogen 17 7-18 MG/DL Creatinine 1.35 H 0.60-1.30 MG/DL Estimat Glomerular Filtration Rate 44 BUN/Creatinine Ratio 13 Glucose Level 194 H 70-105 MG/DL Calcium Level 9.8 8.5-10.1 MG/DL Corrected Calcium 9.7 8.5-10.1 MG/DL Magnesium Level 2.2 1.6-2.4 MG/DL Total Bilirubin 0.8 0.1-1.0 MG/DL Aspartate Amino Transf (AST/SGOT) 49 H 5-34 U/L Alanine Aminotransferase (ALT/SGPT) 33 0-55 U/L Alkaline Phosphatase 85 40-136 U/L Myoglobin 96.6 H 10.0-92.0 NG/ML Troponin I 6.188 *H <0.028 NG/ML Total Protein 7.9 6.4-8.2 GM/DL Albumin 4.1 3.2-4.5 GM/DL Glucometer 204 H 70-110 MG/DL My Orders Orders - RACHELE MCKINLEY Cbc With Automated Diff (10/22/22 16:29) Magnesium (10/22/22 16:29) Chest 1 View, Ap/Pa Only (10/22/22 16:29) Comprehensive Metabolic Panel (10/22/22 16:29) Myoglobin Serum (10/22/22 16:29) Protime With Inr (10/22/22 16:29) Partial Thromboplastin Time (10/22/22 16:29) O2 (10/22/22 16:29) Monitor-Rhythm Ecg Trace Only (10/22/22 16:29) Ed Iv/Invasive Line Start (10/22/22 16:29) Troponin I Jay (10/22/22 16:29) Aspirin Chewable Tablet (Baby Aspirin Ch (10/22/22 16:30) Manual Differential (10/22/22 16:34) Ekg Tracing (10/22/22 17:17) Ticagrelor Tablet (Brilinta Tablet) (10/22/22 17:22) Potassium Chloride (Tablet) (K Dur Table (10/22/22 17:22) 1/2 Ns W/Kcl 20 Meq/L (0.45% Sodium Chlo (10/22/22 17:30) Heparin (Bolus Per Protocol) (Heparin (B (10/22/22 17:22) Medications Given in ED Current Medications Medications Dose Ordered Sig/West Route Start Time Stop Time Status Last Admin Dose Admin Aspirin 324 mg ONCE ONCE PO 10/22/22 16:30 10/22/22 16:31 DC 10/22/22 16:40 324 MG Vital Signs/I&O 10/22/22 16:27 Pulse 97 Resp 18 B/P (MAP) 123/78 (93) Pulse Ox 97 O2 Delivery Room Air Blood Pressure Mean: 93 FSBG Bedside Testing Finger Stick Blood Glucose: 204 Progress Progress Note : Time: 16:28 Progress Note patient assessed, will obtain EKG, labs, chest x-ray, aspirin 324 mg and continue to monitor. Her blood pressure was stable and SaO2 was 98 to 99% on room air. She was not tachycardic and no evidence of A-fib. Accucheck 204. 1640 EKG shows artifact, reviewed wt Dr. Alexis, recommended repeat EKG. RN Notified. 1710 new EKG obtained, showed ST Elevation in Lead I, aVL and V5-6. Call into Dr. Moore, no answer on cell phone. Page into Dr. Moore. Loss Control Representative notified, will call Gasoline Tester. 1715 Troponin 6.[address] Moore, will start Brilinta, potassium orally 40 mEq now and then half-normal saline with 20 potassium (K+ 2.7), she takes 20 mEq at HS and chronically runs 2.9-3.4 K+. 1735 second IV started, medications initiated. Patient's at bedside. 1750 Daughter at bedside. Patient reports being anxious but no further chest pain. Vitals stable. 1758 Staff from soap slabber in room to assume care of patient. . Initial ECG Impression Date: October 22, 2022 Initial ECG Impression Time: 16:33 Initial ECG Rate: 97 Initial ECG Rhythm: Normal Sinus Initial ECG Comparisson: Changed Comment Reviewed with Dr. Salazar, new EKG to be obtained. EKG : EKG Time: 17:23 Rate: 95 Rhythm: ST Elevation Intervals NM 156, QRS D 102, QT 389, QTc 441. [place] P62, RR 63, T27. ECG Comparisson: Changed ECG Impression: Acute NC Departure Impression Primary Impression: STEMI (ST elevation myocardial infarction) Qualified Codes: I21.11 - ST elevation (STEMI) myocardial infarction involving right coronary artery Additional Impressions: Chest pain Qualified Codes: R07.9 - Chest pain, unspecified Diabetes Qualified Codes: E11.9 - Type 2 diabetes mellitus without complications Disposition: ADMITTED INPATIENT Condition: Critical Admissions Decision to Admit/Date: October 22, 2022 Time/Decision to Admit Time: 17:10 Departure-Patient Inst. Referrals: KAREN HOLDEN APPLICATION CHEMIST (PCP/Family) Primary Care Physician Copy Copies To 1: STEFANIA MOORE MD [facility]; MAGGIE DURBIN MD, AMY ARNP October 22, 2022 17:16
[2022-10-22 17:17] LABS: LYMPHOCYTES % (MANUAL) 16 %; MONOCYTES % (MANUAL) 3 %; NEUTROPHILS % (MANUAL) 81 %; PLATELET ESTIMATE NORMAL; RBC MORPH NORMAL
[2022-10-22] MEDS ORDERED: HEParin 1000 UNIT/ML (10ML VIAL) FOR BOLUS IV STA (17:22)
[2022-10-22] MEDS ORDERED: KCL 20 MEQ TAB (K-DUR) PO STA (17:22)
[2022-10-22] MEDS ORDERED: TICAGRELOR 90 MG TABLET (BRILINTA) PO STA (17:22)
[2022-10-22] MEDS ORDERED: 1/2 NS W/KCL 20 MEQ/L 1,000 ML IV SCH (17:30)
[2022-10-22] MEDS ORDERED: LIDOCAINE 1% INJ 20 ML VIAL ONE ×2 (17:33→18:03)
[2022-10-22] MEDS ORDERED: NS IV 1000 ML 1,000 ML ONE (17:33)
[2022-10-22] MEDS ORDERED: HEParin (CATH LAB) 2,000 ML IV ONE (17:33)
[2022-10-22] MEDS ORDERED: fentaNYL INJ 100 MCG/2 ML AMP ONE (17:39)
[2022-10-22] MEDS ORDERED: HEParin 1000 UNIT/ML (10ML VIAL) FOR BOLUS ONE (17:39)
[2022-10-22] MEDS ORDERED: MIDAZOLAM 5 MG/5 ML (VERSED) VIAL ONE (17:39)
[2022-10-22] MEDS ORDERED: EPTIFIBATIDE BOLUS 20 ML IV ONE (17:40)
[2022-10-22] MEDS ORDERED: EPTIFIBATIDE DRIP 0 ML IV ONE (17:40)
[2022-10-22] MEDS ORDERED: NITRO DRIP 25000 MCG/D5W 0 ML IV ONE (17:40)
[2022-10-22] MEDS ORDERED: meTOprolol 5 MG/5 ML (LOPRESSOR) VIAL ONE ×2 (18:48→19:01)
--- NOTE | 2022-10-22 18:48 | Cardiac Cath Report ---
CARDIAC CATHETERIZATION DATE OF PROCEDURE: 10-22-22 INDICATION: Acute AK HISTORY: The patient is a 62 year old female with chest pain since 10-21-22, waxing and waning but not fully resolving, who presented to the ER today and on the first ECG at 16:33 the ER physician did not see definitive ST elevation. Subsequently, at a repeat ECG at 17:23, the ER physician saw ST elevation and called us. The troponin had returned by then at approx 6. color laboratory technician was activated. Informed consent obtained from the patient for cardiac cath and possible ad hoc cor intervention PROCEDURES PERFORMED: 1. Cor angio; 2. LHC and LV angio; 3. Aortic root angio PROCEDURE DESCRIPTION: After informed consent and in the fasting state, left heart catheterization was performed through the R femoral artery utilizing a 6 Somali system by percutaneous approach. We used 6F JL4 guide for L cors and 6F JR4 guide for R cor. We used pigtail cath for LHC, LV angio, and aortic root angio. The patient went into A Fib with vent response of approx 120 bpm during the procedure. HEMODYNAMICS: LVEDP 15 mmHg, no significant pressure gradient on pullback across the aortic valve CORONARY ANGIOGRAPHY: Left main coronary artery: No significant disease. Left anterior descending coronary artery: No significant disease. Left circumflex coronary artery: Dominant. No significant disease. Right coronary artery: Small, nondominant. No significant disease. LV Angiogram Done in AP and [place] projections. LVEF approx 50-55% w/o distinct wall motion abnormality seen in these projections Aortic Root Angiogram No aortic dissection seen. No anomalous coronaries seen. No significant aortic regurgitation IMPRESSION: 1. No angiographically significant CAD 2. LVEF 50-55% 3. LVEDP 15 mmHg 4. Onset of atrial fibrillation during this procedure STEFANIA WELCH MD FACP [facility] October 22, 2022 18:48
--- NOTE | 2022-10-22 18:50 | Cardiac Procedure Note-CS/ASA ---
Pre-Procedure Note Pre-Op Procedure Note Date of Available H&P: October 22, 2022 Date H&P Reviewed: October 22, 2022 Time H&P Reviewed: 17:40 History & Physical: H&P Reviewed Moderate Sedation PreProcedure ASA Score 4 Airway Lungs Heart ASA score ASA 1: a normal healthy patient ASA 2: a patient with a mild systemic disease (mid diabetes, controlled hypertension, obesity ASA 3: a patient with a severe systemic disease that limits activity (angina, COPD, prior Myocardial infarction) ASA 4: a patient with an incapacitating disease that is a constant threat to life (CHF, renal failure) ASA 5: a moribund patient not expected to survive 24 hrs. (ruptured aneurysm) ASA 6: a declared brain- patient whose organs are being harvested. For emergent operations, add the letter E after the classification Mallampati Classification Grade 2 Sedation Plan Analgesia, Amnesia, Plan communicated to team members The patient is an appropriate candidate to undergo the planned procedure, sedation, and anesthesia. The patient immediately re-assessed prior to indication. STEFANIA WELCH MD FACP [facility] October 22, 2022 18:50
--- NOTE | 2022-10-22 18:59 | Cardiology History & Physical ---
HPI-Cardiology Cardiology H&P Date of Admission 10-22-22 Primary Care Physician Attending Physician: Ricardo Moore MD, MA [facility] CCDS Attending Physician Consulting Physician LIU The patient is a 62 year old female with chest pain since 10-21-22, waxing and waning but not fully resolving, who presented to the ER today and on the first ECG at 16:33 the ER physician did not see definitive ST elevation. Subsequently, at a repeat ECG at 17:23, the ER physician saw ST elevation and called us. The troponin had returned by then at approx 6. The patient notes chest discomfort was in the midchest and radiating to the shoulders and intermittently associated with some shortness of breath. She denies palp or syncope or swelling. She denies n/v/d. Review of Systems-Cardiology Review of Systems Eyes: No vision change Ears/Nose/Throat: No ear discharge, No nasal drainage, No recent hearing loss Respiratory: As described under HPI Cardiovascular: As described under HPI Gastrointestinal: As described under HPI Genitourinary: No dysuria, No hematuria Musculoskeletal: No back pain, No joint pain Skin: No rash, No ulcerations Psychiatric/Neurological: No seizure, No focal weakness, No syncope Hematologic: No bleeding abnormalities All Other Systems Reviewed Negative Unless Noted: Yes SKT-Rifgfb-Wxiiva Hx Patient Social History Have you traveled recently?: No Alcohol Use?: No Pt feels they are or have been: No Immunizations Up To Date Tetanus Booster (TDap): More than 5yrs Date of Pneumonia Vaccine: Feb 08, 2013 Date of Influenza Vaccine: Apr 01, 2019 Past Medical History PMH As described under Assessment. Family Medical History Family History: Abdominal aortic aneurysm MATERNAL GRANDMOTHER Cancer 03 FATHER (PANCREATIC) Cataract MATERNAL GRANDFATHER Chest pain 03 FATHER Congestive heart failure 03 FATHER Family history: Arthritis 03 MOTHER MATERNAL GRANDMOTHER Family history: Breast disease PATERNAL GRANDMOTHER1 Family history: Cardiovascular disease 03 MOTHER Family history: Diabetes mellitus 03 FATHER Family history: Gastrointestinal disease 03 FATHER Family history: Glaucoma 03 MOTHER Family history: Hypertension 03 FATHER Family history: Osteoporosis 03 MOTHER MATERNAL GRANDMOTHER Headache 03 MOTHER Hearing loss Heart disease 03 FATHER History of - respiratory disease 03 FATHER Human immunodeficiency virus (HIV) seropositivity 09 BROTHER Hypercholesterolemia 03 FATHER 03 MOTHER Myocardial infarction 03 FATHER Prostate cancer MATERNAL GRANDFATHER No Family History of: AIDS Alcoholism Aphasia Cancer of colon Congenital heart disease Cystic fibrosis Dementia Dysphagia Family history: Alzheimer's disease Family history: Thyroid disorder History of - anemia History of drug abuse Infertile Kidney disease Malignant neoplasm of lung Parkinson's disease Psychotic disorder Seizure disorder Stroke Tuberculosis Visual impairment Allergies and Home Medications Allergies Coded Allergies: morphine (Verified Allergy, Mild, RASH, ITCHING, AGITATION, 08/31/13) Patient Home Medication List Home Medication List Reviewed: Yes Amiodarone HCl (Amiodarone HCl) 200 Mg Tablet, 200 MG PO DAILY, (Reported) Entered as Reported by: KEITH PERSAUD on 01/22/22 1553 Amoxicillin (Amoxicillin) 875 Mg Tablet, 875 MG PO BID Prescribed by: ZOYA BUSBY on 10/09/22 1904 Aspirin (Aspirin EC) 81 Mg Tablet., 81 MG PO HS, (Reported) Entered as Reported by: MADIHA MENA on 07/19/19 1202 Atorvastatin Calcium (Atorvastatin Calcium) 20 Mg Tablet, 20 MG PO HS, (Reported) Entered as Reported by: MADIHA MENA on 07/19/19 1206 Empagliflozin (Jardiance) 25 Mg Tablet, 25 MG PO HS, (Reported) Entered as Reported by: MADIHA MENA on 07/19/19 1156 Estradiol (Estradiol Tablet) 1 Mg Tablet, 1 MG PO HS, (Reported) Entered as Reported by: MADIHA MENA on 07/19/19 1156 Hydroxyzine HCl (Hydroxyzine HCl) 25 Mg Tablet, 25 MG PO TID, (Reported) Entered as Reported by: KEITH PERSAUD on 01/22/22 155 Levothyroxine Sodium (Levothyroxine Sodium) 100 Mcg Tablet, 100 MCG PO HS, (Reported) Entered as Reported by: MADIHA MENA on 07/19/19 115 Montelukast Sodium (Montelukast Sodium) 10 Mg Tablet, 10 MG PO HS, (Reported) Entered as Reported by: MADIHA MENA on 07/19/19 115 Multivitamin (Multivitamin) 1 Each Tablet, 1 EACH PO DAILY, (Reported) Entered as Reported by: KEITH PERSAUD on 01/22/22 155 Omeprazole (Omeprazole) 40 Mg Capsule., 40 MG PO DAILY, (Reported) Entered as Reported by: KEITH PERSAUD on 01/22/22 155 Potassium Chloride (Potassium Chloride) 20 Meq Tab.er.prt, 20 MEQ PO HS, (Reported) Entered as Reported by: MADIHA MENA on 07/19/19 115 Promethazine HCl/Codeine (Prometh-Codein 6.25-10 mg/5 ml) 6.25 Mg-10 Mg/5 Ml (5 Ml) Syrup, 5 ML PO Q6H PRN for COUGH, (Reported) Entered as Reported by: KEITH PERSAUD on 01/22/22 155 Semaglutide (Ozempic) 0.25 Mg/0.2 Ml Pen.injctr, 0.5 MG SQ WEEK, (Reported) Entered as Reported by: KEITH PERSAUD on 01/22/221552 Spironolactone (Spironolactone) 25 Mg Tablet, 50 MG PO HS, (Reported) Entered as Reported by: MADIHA MENA on 07/19/19 115 Triamterene/Hydrochlorothiazid (Triamterene-Hctz 75-50 mg Tab) 1 Each Tablet, 1 EA PO HS, (Reported) Entered as Reported by: MADIHA MENA on 07/19/19 115 Venlafaxine HCl (Venlafaxine HCl ER) 150 Mg Cap.er.24h, 150 MG PO HS, (Reported) Entered as Reported by: MADIHA MENA on 07/19/19 115 Verapamil HCl (Verapamil ER) 180 Mg Tablet.er, 180 MG PO DAILY, (Reported) Entered as Reported by: KEITH PERSAUD on 01/22/221552 Physical Exam-Cardiology Physical Exam Vital Signs/I&O 10/22/22 10/22/22 16:27 17:51 Pulse 97 96 Resp 18 22 B/P (MAP) 123/78 (93) Pulse Ox 97 98 O2 Delivery Room Air Room Air Capillary Refill : Less Than 3 Seconds Constitutional: AAO x 3, well-developed, well-nourished HEENT: EOMI, hearing is well preserved; No xanthelasmas are seen Neck: carotid pulses are 2 + bilaterally, with good upstrokes Respiratory: No accessory muscle use; chest expansion is symmetric, chest is bilaterally symmetric, other (fair to good, bilateral air entry) Cardiovascular: irregularly irregular (went from regular (sinus rhythm) to irregular (a fib) during card cath of 10/22/22), S1 and S2 Gastrointestinal: No tender; soft; No guarding, No rebound; audible bowel sounds Extremities: No clubbing, No cyanosis, No significant edema Neurologic/Psychiatric: oriented x 3, other (moves all limbs equally) Skin: No rash on exposed areas, No ulcerations on exposed areas Data Review Labs Laboratory Tests 10/22/22 16:34: White Blood Count 19.6H, Red Blood Count 4.87, Hemoglobin 14.5, Hematocrit 41, Mean Corpuscular Volume 85, Mean Corpuscular Hemoglobin 30, Mean Corpuscular Hemoglobin Concent 35, Red Cell Distribution Width 13.9, Platelet Count 205, Mean Platelet Volume 9.7, Immature Granulocyte % (Auto) 1, Neutrophils (%) (Auto) 83H, Lymphocytes (%) (Auto) 11L, Monocytes (%) (Auto) 5, Eosinophils (%) (Auto) 0, Basophils (%) (Auto) 0, Neutrophils # (Auto) 16.3H, Lymphocytes # (Auto) 2.2, Monocytes # (Auto) 1.0, Eosinophils # (Auto) 0.0, Basophils # (Auto) 0.0, Immature Granulocyte # (Auto) 0.1, Neutrophils % (Manual) 81, Lymphocytes % (Manual) 16, Monocytes % (Manual) 3, Platelet Estimate NORMAL, Blood Morphology Comment NORMAL, Prothrombin Time 14.1, INR Comment 1.1, Activated Partial Thromboplast Time 30, Sodium Level 132L, Potassium Level 2.7L, Chloride Level 93L, Carbon Dioxide Level 25, Anion Gap 14, Blood Urea Nitrogen 17, Creatinine 1.35H, Estimat Glomerular Filtration Rate 44, BUN/Creatinine Ratio 13, Glucose Level 194H, Calcium Level 9.8, Corrected Calcium 9.7, Magnesium Level 2.2, Total Bilirubin 0.8, Aspartate Amino Transf (AST/SGOT) 49H, Alanine Aminotransferase (ALT/SGPT) 33, Alkaline Phosphatase 85, Myoglobin 96.6H, Troponin I 6.188*H, Total Protein 7.9, Albumin 4.1 10/22/22 16:36: Glucometer 204H Laboratory Tests 10/22/22 16:34 A/P-Cardiology Assessment/Admission Diagnosis Ac AR without any significant CAD seen on card cath today: suspect transient co ronary thrombus - Card cath on 10-22-22: no significant CAD, LVEDP 15 mmHg, LVEF 50-55%, no evidence of thoracic aortic dissection DM II Leucocytosis Chronic, intermittent chest discomfort H/o palpitations, none recently - previous h/o treatment amiodarone that was stopped relatively recently by Dr Durbin Hypertension Hyperlipidemia H/o hypothyroidism managed by thyroid replacement therapy Hypokalemia, hyponatremia, and elevated creatinine (probably pre-renal azotemia) at this presentation, likely due to chronic diuretic usee Obesity - BMI 37.8 Surgical history: cholecystectomy, hysterectomy, Admission Status: Inpatient Order (span 2 midnights) Reason for Inpatient Admission: Ac AR Discussion and Recomendations * DAPT because of AR (even though no significant CAD seen) * Beta-alfa * Amiodarone to treat A Fib that occurred during the cardiac cath and cause the SBP to drop from approx 130 to 90-100 range (hemodynamically significant) * Eliquis for stroke prevention after allowing some time for groin to heal for cath done via R fem access * Echo * Hospitalist consult to manage hypothyroidism, leucocytosis, DM II, and other non-cardiac issues * Replenish K * iv fluids * Discontinue diuretics * Monitor labs * Keep on tele Clinical Quality Measures AMI/AHF: ASA po Prior to arrival: RICARDO Roa MD FACP FAC CCDS October 22, 2022 18:59
[2022-10-22] MEDS: 1/2 NS W/KCL 20 MEQ/L 1,000 ML IV SCH (19:30)
[2022-10-22] MEDS ORDERED: MAGNESIUM 1 GM/100 ML IVPB 100 ML IV ONE (19:30)
[2022-10-22] MEDS ORDERED: PATIENT MAY USE OWN MEDS, ALL PO SCH (19:30)
[2022-10-22] MEDS ORDERED: PANTOPRAZOLE 40 MG (PROTONIX) TAB PO ONE ×2 (19:45→22:25)
[2022-10-22] MEDS ORDERED: oxyCODONE/APAP 7.5-325 MG (PERCOCET 7.5) TABLET PO ONE (19:45)
[2022-10-22] MEDS ORDERED: FAMOTIDINE 20 MG (PEPCID) TABLET PO PRN (19:45)
[2022-10-22] MEDS: inSUlin ASPART (NovoLOG) 1 UNIT/0.01 ML (CHARGE PER UNIT) SC SCH (20:00)
[2022-10-22] MEDS ORDERED: TICAGRELOR 90 MG TABLET (BRILINTA) PO SCH (21:00)
--- NOTE | 2022-10-22 21:06 | Tele-ICU Consult ---
Assessment/Plan Assessment/Plan 62F with PMH of DM2, palpitations, HTN. HLD, hypothyroidism, obesity admitted with CP. Found to have STEMI. Went to [facility] tender restoration labor and now transferred to ICU for monitoring. Vitals: BP 108/63, HR 85, 98% on RA PE: NAD, on phone, moving all extremities, no respiratory distress Labs: CBC 19.6/14.5/205, CMP 132/2.7/93/25/17/1.35, LFTs NL, Trop 6.188 Rads: CXR, 10/22/22 No acute cardiopulmonary process by portable radiography. Diagnosis: # Chest pain # CAD # HLD # HTN # Afib perioperative - s/p angiogram - Cardiology following, appreciate recommendations - continue DAPT - continue amiodarone gtt for Afib (although patient converted to NSR so would ask Cards if need to start gtt tonight or continue with PO) - TTE with localized anterolateral hypokinesis - continue other home cardiac meds # Hypothyroidism - continue home meds per primary # DM2 - insulin PRN - management per primary # GERD - home PPI A total of 31 minutes of critical care time was devoted to this patient, including reviewing this patient's available data, including medical history, events of note and test results. Georgia Roach MD TeleICU This was required to treat and/or prevent further deterioration of critical care conditions ( as above ). Service provided to a patient admitted to ICU bed via interactive E-CARE system with real-time audio and video telecommunications from [facility]- ICU hub located in [place], [place] GEORGIA ROACH MD October 22, 2022 21:06
[2022-10-22] MEDS: ACETAMINOPHEN 325 MG TABLET PO PRN (21:53)
[2022-10-22] MEDS ORDERED: AMIODARONE (Pyxis Kit Only) DRIP 450 MG/9 ML VIAL IV ONE (22:22)
[2022-10-22] MEDS ORDERED: NORMAL SALINE 250 ML ONE (22:22)
[2022-10-22] MEDS ORDERED: meTOprolol TARTRATE 25 MG (LOPRESSOR) TABLET ONE (22:25)
[2022-10-22] MEDS: APIXABAN 5 MG (ELIQUIS) TABLET PO SCH (22:29)
[2022-10-22] MEDS: AMIODARONE INJECTION 450 MG in NORMAL SALINE 250 ML IV SCH ×2 (22:30→22:33)
[2022-10-23] MEDS: 1/2 NS W/KCL 20 MEQ/L 1,000 ML IV SCH (04:38)
[2022-10-23] MEDS: ACETAMINOPHEN 325 MG TABLET PO PRN (06:25)
[2022-10-23] MEDS ORDERED: NORMAL SALINE 250 ML ONE ×2 (06:54→20:47)
[2022-10-23] MEDS ORDERED: AMIODARONE (Pyxis Kit Only) DRIP 450 MG/9 ML VIAL IV ONE ×2 (06:54→20:47)
[2022-10-23] MEDS: inSUlin ASPART (NovoLOG) 1 UNIT/0.01 ML (CHARGE PER UNIT) SC SCH ×4 (07:21→20:05)
[2022-10-23] MEDS: AMIODARONE INJECTION 450 MG in NORMAL SALINE 250 ML IV SCH ×2 (07:22→20:50)
[2022-10-23 07:37] LABS: BASOPHILS % (AUTO) 0 % (0-10); EOSINOPHILS % (AUTO) 0 % (0-10); HEMATOCRIT 35 % (35-52); LYMPHOCYTES # (AUTO) 0.9 10^3/uL (1.0-4.0); LYMPHOCYTES % (AUTO) 5 % (12-44); MEAN CORPUSCULAR HEMOGLOBIN 30 pg (25-34); MEAN CORPUSCULAR HGB CONC 35 g/dL (32-36); MEAN CORPUSCULAR VOLUME 85 fL (80-99); MEAN PLATELET VOLUME 9.9 fL (9.0-12.2); MONOCYTES # (AUTO) 1.2 10^3/uL (0.0-1.0); MONOCYTES % (AUTO) 7 % (0-12); NEUTROPHILS # (AUTO) 15.4 10^3/uL (1.8-7.8); NEUTROPHILS % (AUTO) 88 % (42-75); PLATELET COUNT 187 10^3/uL (130-400); WHITE BLOOD COUNT 17.6 10^3/uL (4.3-11.0)
[2022-10-23 07:57] LABS: ALBUMIN 3.5 GM/DL (3.2-4.5); BILIRUBIN,TOTAL 1.4 MG/DL (0.1-1.0); CALCIUM 8.7 MG/DL (8.5-10.1); CREATININE SERUM 0.87 MG/DL (0.60-1.30); POTASSIUM 3.3 MMOL/L (3.6-5.0); TOTAL PROTEIN 6.6 GM/DL (6.4-8.2)
[2022-10-23] MEDS ORDERED: NS IV 500 ML 500 ML IV PRN (08:00)
[2022-10-23] MEDS ORDERED: KCL 20 MEQ TAB (K-DUR) PO NR ×2 (08:19→10:15)
--- NOTE | 2022-10-23 08:21 | Consultation ---
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 She remains with an elevated white count but no source likely due to stress response. Source: patient, family, RN/MD, old records Exam Limitations: no limitations Date Seen 10/23/22 Attending Physician Jazmine Vasquez Np PCP Admitting Physician: Ricardo Moore MD [facility] Attending Physician: Ricardo Moore MD [facility] Referring Physician Date of Admission October 22, 2022 at 19:53 Home Medications & Allergies Home Medications Reviewed patient Home Medication Reconciliation performed by pharmacy medication reconciliations technician's helper and/or nursing. Patients Allergies have been reviewed. Allergies Allergies Coded Allergies morphine (Verified Allergy, Mild, RASH, ITCHING, AGITATION, 10/23/22) Patient has received Hydrocodone and Oxycodone in the past Past Ylawlcv-Jeovhh-Mvdopi Hx Past Med/Social Hx: Reviewed Nursing Past Med/Soc Hx, Reviewed and Corrections made Patient Social History Marrital Status: single Employed/Student: retired Alcohol Use: Denies Use Smoking Status: Never a Smoker Recent Hopitalizations: No Immunizations Up To Date Tetanus Booster (TDap): More than 5yrs Pediatric: No Date of Pneumonia Vaccine: Feb 08, 2013 Date of Influenza Vaccine: Apr 01, 2019 Seasonal Allergies Seasonal Allergies: Yes Past Medical History Surgeries: Appendectomy, Gallbladder, Hysterectomy, Oophorectomy Cardiac: Chronic Edema/Swelling, High Cholesterol, Hypertension Neurological: Headaches /Migraines Reproductive: No Sexually Transmitted Disease: No Menopausal Gastrointestinal: Gastroesophageal Reflux, Ulcer Musculoskeletal: Degenerate Disk Disease, Chronic Back Pain Endocrine: Hypothyroidsim, Diabetes, Non-Insulin dep Cancer: Skin Did You Recieve Any Treatments: Yes What Type of Treatment Did You: Surgical Intervention Psychosocial: Anxiety, Depression History of Blood Disorders: No Adverse Reaction to Blood Ravi: No Family History Reviewed Nursing Family Hx Abdominal aortic aneurysm MATERNAL GRANDMOTHER Cancer 03 FATHER (PANCREATIC) Cataract MATERNAL GRANDFATHER Chest pain 03 FATHER Congestive heart failure 03 FATHER Family history: Arthritis 03 MOTHER MATERNAL GRANDMOTHER Family history: Breast disease PATERNAL GRANDMOTHER1 Family history: Cardiovascular disease 03 MOTHER Family history: Diabetes mellitus 03 FATHER Family history: Gastrointestinal disease 03 FATHER Family history: Glaucoma 03 MOTHER Family history: Hypertension 03 FATHER Family history: Osteoporosis 03 MOTHER MATERNAL GRANDMOTHER Headache 03 MOTHER Hearing loss Heart disease 03 FATHER History of - respiratory disease 03 FATHER Human immunodeficiency virus (HIV) seropositivity 09 BROTHER Hypercholesterolemia 03 FATHER 03 MOTHER Myocardial infarction 03 FATHER Prostate cancer MATERNAL GRANDFATHER No Family History of: AIDS Alcoholism Aphasia Cancer of colon Congenital heart disease Cystic fibrosis Dementia Dysphagia Family history: Alzheimer's disease Family history: Thyroid disorder History of - anemia History of drug abuse Infertile Kidney disease Malignant neoplasm of lung Parkinson's disease Psychotic disorder Seizure disorder Stroke Tuberculosis Visual impairment No Pertinent Family Hx Review of Systems Constitutional: see HPI, malaise, weakness EENTM: no symptoms reported Respiratory: dyspnea on exertion, short of breath Cardiovascular: chest pain Gastrointestinal: no symptoms reported Genitourinary: no symptoms reported Musculoskeletal: no symptoms reported Skin: no symptoms reported Psychiatric/Neurological: No Symptoms Reported All Other Systems Reviewed Negative Unless Noted: Yes Physical Exam Physical Exam Vital Signs Vital Signs - First Documented 10/22/22 10/22/22 16:27 19:21 Temp 36.7 Pulse 97 Resp 18 B/P (MAP) 123/78 (93) Pulse Ox 97 O2 Delivery Room Air Capillary Refill : Less Than 3 Seconds Height, Weight, BMI Height: 5'4.00" Weight: 206lbs. 7.0oz. 93.468310nf; 38.76 BMI Method:Stated General Appearance: No Apparent Distress, WD/WN, Chronically ill, Obese Neck: Full Range of Motion, Normal Inspection, Non Tender, Supple Respiratory: Lungs Clear, Normal Breath Sounds Cardiovascular: Regular Rate, Rhythm, No Edema, No Murmur, Normal Peripheral Pulses Gastrointestinal: Normal Bowel Sounds, Non Tender, Soft Extremity: Normal Capillary Refill, Normal Inspection, Normal Range of Motion, Non Tender, No Calf Tenderness, No Pedal Edema Neurologic/Psychiatric: Alert, Oriented x3, No Motor/Sensory Deficits, Normal Mood/Affect Skin: Normal Color, Warm/Dry; No Cyanosis, No Diaphoresis Results Results/Procedures Labs Laboratory Tests 10/22/22 16:34 10/23/22 07:25 Patient resulted labs reviewed. Assessment/Plan Assessment and Plan Assess & Plan/Chief Complaint Assessment: Acute STEMI status post emergent cath with no intervention presumed transient thrombus Continued chest pain placed on nitroglycerin drip Atrial fibrillation? Hypertension Elevated BMI Hyperlipidemia Leukocytosis without source of infection Hyponatremia Diabetes Plan: Supportive care ICU Monitor labs Cardiology appreciated Clinical Quality Measures AMI/AHF: ASA po Prior to arrival: AMY Martinez DO October 23, 2022 08:21
--- NOTE | 2022-10-23 08:49 | Tele-ICU Progress Note ---
Subjective Date Seen by a Provider: October 23, 2022 Time Seen by a Provider: 08:48 Subjective/Events-last exam (Tele-ICU Physician , Progress Note ) Service provided via interactive audio and video telecommunications E-CARE system to a patient admitted to ICU bed in [facility]. Patient is seen today due to persistent need of ICU care Available chart/ vitals / labs / Images reviewed Video assessment done using teleICU camera, rest of exam as per RN Discussed with RN Events overnight : Afebrile hemodynamically stable Respiratory - ra I/O = Drips: Pressors- no Hospital course: (10/22) 62yr F admitted for STEMI s/p CCL for left heart cath with no intervention. 10/23 - a fib rvr - amio gtt, NTG gtt A/P Af ib RVR - perioperative s/p angiogram - amio gttt -AC witth Eliquis Chest pain - NTG gtt - TTE with localized anterolateral hypokinesis leukocutosis - suspectet reactive Hypothyroidism - continue home meds per primary DM2 - insulin PRN - management per primary NATE - mild , cr 1.4 - resolved Hyponatremia - mild TSH pending - chenge for 1/2 ns to NS - folow , can stop IVF latter GERD - home PPI Lines : periph , (Central Line Necessity Reviewed) Arriola: OG: Nutrition: po Analgesia: Anxiety/ delirium VTE Prophylaxis: eliquis Stress Ulcer Prophylaxis: ppi Plans in collaboration with bedside consultants and IM MDs. Discussed with RN to reach out if any questions or concerns Case and care daily discussed on multidisciplinary rounds ( RN, PharmD, Alarm Security Or Surveillance Monitor , Respiratory Therapy, insole department worker ) A total of 25 minutes of critical care time was devoted to this patient today, required to treat and/or prevent further deterioration of critical care condition ( as above ) . I am remotely monitoring this patient from another state. I am unable to do the bedside exam, and history/physical and pertinent information is taken from other notes in the computer and bedside staff. Sepsis Event Evaluation Height, Weight, BMI Height: 5'4.00" Weight: 206lbs. 7.0oz. 93.392889ii; 38.76 BMI Method:Stated Exam Exam Patient acknowledged, consented, and participated in this virtual visit which was conducted using real time audio/video Vital Signs Date Time Temp Pulse Resp B/P (MAP) Pulse Ox O2 Delivery O2 Flow Rate FiO2 10/23/22 08:00 35.9 10/23/22 07:56 100 10/23/22 04:00 36.7 Room Air 10/23/22 04:00 99 Room Air 10/23/22 00:00 95 Room Air 10/23/22 00:00 36.3 Room Air 10/22/22 22:00 86 19 117/64 (81) Room Air 10/22/22 21:15 85 100/69 (79) Room Air 10/22/22 20:45 85 100/69 (79) 97 Room Air 10/22/22 20:15 84 104/68 (80) 92 Room Air 10/22/22 20:00 81 21 104/80 (88) 99 Room Air 10/22/22 19:45 79 21 106/68 (81) 99 Room Air 10/22/22 19:43 81 10/22/22 19:30 98 Room Air 10/22/22 19:30 81 21 113/75 (88) 99 Room Air 10/22/22 19:21 36.7 80 16 113/75 (88) 100 Room Air 10/22/22 17:51 96 22 98 Room Air 10/22/22 16:27 97 18 123/78 (93) 97 Room Air I & O 10/23/22 07:00 Intake Total 3270 ml Output Total 550 ml Balance 2720 ml Height & Weight Height: 5'4.00" Weight: 206lbs. 7.0oz. 93.820971oe; 38.76 BMI Method:Stated General Appearance: No Apparent Distress, WD/WN Neck: Full Range of Motion, Normal Inspection, Non Tender, Supple Respiratory: Lungs Clear, Normal Breath Sounds Cardiovascular: Regular Rate, Rhythm, No Edema, No Murmur, Normal Peripheral Pulses Capillary Refill: Less Than 3 Seconds Extremity: Normal Capillary Refill, Normal Inspection, Normal Range of Motion, Non Tender, No Calf Tenderness, No Pedal Edema Neurologic/Psychiatric: Alert, Oriented x3, No Motor/Sensory Deficits, Normal Mood/Affect Skin: Normal Color, Warm/Dry; No Cyanosis, No Diaphoresis Results Lab Laboratory Tests 10/22/22 16:34 10/23/22 07:25 Assessment/Plan Assessment/Plan 1 EDNTON BREWSTER MD October 23, 2022 08:49
[2022-10-23] MEDS ORDERED: IBUPROFEN 600 MG (MOTRIN) TAB PO SCH ×2 (09:00→09:30)
[2022-10-23] MEDS ORDERED: NS IV 1000 ML 1,000 ML IV SCH (09:00)
[2022-10-23] MEDS: APIXABAN 5 MG (ELIQUIS) TABLET PO SCH ×2 (09:05→20:49)
[2022-10-23] MEDS: ASPIRIN 81 MG CHEW (CHILDREN'S ASA) PO SCH (09:05)
[2022-10-23] MEDS: EMPAGLIFLOZIN 10 MG TABLET (JARDIANCE) PO SCH (09:05)
[2022-10-23] MEDS: PANTOPRAZOLE 40 MG (PROTONIX) TAB PO SCH ×2 (09:05→09:31)
--- NOTE | 2022-10-23 09:05 | Cardiology Progress Note ---
Subjective Date Seen by Provider: October 23, 2022 Time Seen by Provider: 08:10 Subjective/Events-last exam Patient in bed, complaining of some chest pain this morning. Review of Systems General: No Chills, No Night Sweats, No Fatigue, No Malaise, No Appetite, No Other HEENT: No Head Aches, No Visual Changes, No Eye Pain, No Ear Pain, No Dysphasia, No Sinus Congestion, No Post Nasal Drip, No Sore Throat, No Other Pulmonary: No Dyspnea, No Cough, No Pleuritic Chest Pain, No Other Cardiovascular: Chest Pain; No: Palpitations, Orthopnea, Paroxysmal Noc. Dyspnea, Edema, Lt Headedness, Other Objective-Cardiology Exam Last Set of Vital Signs Vital Signs 10/22/22 10/23/22 10/23/22 10/23/22 22:00 04:00 07:56 08:00 Temp 35.9 Pulse 100 Resp 19 B/P (MAP) 117/64 (81) Pulse Ox 99 O2 Delivery Room Air I&O Intake and Output 10/23/22 00:00 Intake Total 1020 ml Output Total 550 ml Balance 470 ml Intake Oral 120 ml IV Total 900 ml Output Urine Total 550 ml Daily Weight Change No General: Alert, Oriented X3, Cooperative HEENT: Atraumatic, PERRLA Neck: Supple, No JVD, No Thyromegaly Lungs: Clear to Auscultation, Normal Air Movement Heart: Regular Rate, Normal S1, Normal S2, Other (irregularly irregular) Abdomen: Soft Extremities: No Clubbing, No Cyanosis, No Edema, Normal Pulses, No Tenderness/Swelling Skin: No Rashes, No Significant Lesion Neuro: Normal Speech Psych/Mental Status: Mental Status NL, Mood NL Results Lab Laboratory Tests 10/22/22 16:34 10/23/22 07:25 A/P-Cardiology Admission Diagnosis Chest pain Acute DC Atrial fibrillation HTN Assessment/Plan Perimyocarditis. Patient continues to have some chest pain. I will start patient on nitro gtt. Will use IV fluid bolus Cardiac catheterization was done by Dr. Moore on October 22, 2022 and I reviewed it myself, there is no significant obstructive disease in his coronaries Large dominant circumflex artery with no obstructive disease Atrial fibrillation, started on Amiodarone, Eliquis. Continue to monitor DM II Leucocytosis Chronic, intermittent chest discomfort H/o palpitations, none recently. Previous h/o treatment amiodarone that was stopped relatively recently Hypertension, controlled. Hyperlipidemia H/o hypothyroidism managed by thyroid replacement therapy Hypokalemia, hyponatremia, and elevated creatinine (probably pre-renal azotemia) at this presentation, likely due to chronic diuretic usee Obesity, BMI 37.8 Supervisory-Addendum Brief Supervisory Addendum Participated in pt care: history, MDM, physical Personally performed: exam, history, MDM Care discussed with: TIMBO Results interpretation: Verified all documentation Notes: Patient was seen and evaluated with Ananda, examination performed, management plan was discussed, agree with the current scribed note, I made few changes to the note using Italic font Patient was seen at bedside laying down comfortably, still having pleuritic chest pain with deep inspiration EKG showing persistent ST elevation in the lateral leads. I reviewed the cardiac catheterization failed and appeared to have normal coronaries with large dominant circumflex artery with no obstructive disease We will discontinue Brilinta and continue aspirin and Eliquis Using nitroglycerin drip to evaluate if she respond with her chest pain May benefit from NSAID ANANDA AMBROCIO October 23, 2022 09:05 MAGGIE CROCKETT MD October 23, 2022 09:16
[2022-10-23] MEDS: NITRO DRIP 25000 MCG/D5W 250 ML IV SCH (09:45)
[2022-10-23] MEDS: NS IV 1000 ML 1,000 ML IV SCH (09:53)
[2022-10-23] MEDS ORDERED: AMIODARONE 150 MG/3 ML (CORDARONE) VIAL IV ONE (13:54)
[2022-10-23] MEDS: IBUPROFEN 600 MG (MOTRIN) TAB PO SCH (17:15)
[2022-10-23] MEDS ORDERED: KCL 20 MEQ TAB (K-DUR) PO ONE (17:30)
[2022-10-23] MEDS ORDERED: FUROSEMIDE 40 MG/4 ML INJ (LASIX) IVP ONE (17:30)
[2022-10-23] MEDS ORDERED: KETOROLAC 15 MG/ML VIAL IVP ONE (17:30)
[2022-10-23] MEDS: VENlafaxine XR 75 MG (EFFEXOR XR) CAP PO SCH (21:18)
[2022-10-23] MEDS: NS IV 500 ML 500 ML IV SCH (21:46)
[2022-10-24] MEDS: IBUPROFEN 600 MG (MOTRIN) TAB PO SCH ×4 (00:12→17:33)
[2022-10-24] MEDS: oxyCODONE/APAP 7.5-325 MG (PERCOCET 7.5) TABLET PO PRN ×3 (00:13→22:29)
[2022-10-24] MEDS: NS IV 1000 ML 1,000 ML IV SCH ×2 (00:13→14:34)
[2022-10-24] MEDS ORDERED: NS IV 500 ML 500 ML IV SCH ×2 (01:30→03:00)
--- NOTE | 2022-10-24 04:18 | Progress Note ---
Subjective Date Seen by a Provider: October 24, 2022 Time Seen by a Provider: 07:00 Subjective/Events-last exam Patient feels better but now requiring Levophed due to hypotension White count down to 13,000 no evidence of any infectious source Talk to her son more about her recent strep infection and she had never had strep throat before was given an injection and then maintained on antibiotics for a total of 2 weeks and she just completed those 4 days before she started feeling badly on Thursday. Atrial fibrillation noted on telemetry We will work-up more with a set of blood cultures and inflammatory markers and ASO. This could certainly be residual from strep infection but she had been on appropriate antibiotics for an extended period of time Review of Systems General: Fatigue, Malaise Cardiovascular: Chest Pain Objective Exam Last Set of Vital Signs Vital Signs Date Time Temp Pulse Resp B/P (MAP) Pulse Ox O2 Delivery O2 Flow Rate FiO2 10/24/22 04:00 94 12 86/62 (70) 96 Room Air 10/23/22 19:11 36.3 Capillary Refill : Less Than 3 Seconds I&O Intake and Output 10/24/22 00:00 Intake Total 7068 ml Output Total 4925 ml Balance 2143 ml Intake Oral 3650 ml IV Total 3418 ml Output Urine Total 4925 ml # Voids 5 General: Alert, Oriented X3, Cooperative, No Acute Distress Lungs: Clear to Auscultation, Normal Air Movement Heart: Other (irr irr) Psych/Mental Status: Mental Status NL, Mood NL Results Lab Laboratory Tests 10/23/22 05:42: Glucometer 116H 10/23/22 07:25: White Blood Count 17.6H, Red Blood Count 4.06, Hemoglobin 12.0, Hematocrit 35, Mean Corpuscular Volume 85, Mean Corpuscular Hemoglobin 30, Mean Corpuscular Hemoglobin Concent 35, Red Cell Distribution Width 13.9, Platelet Count 187, Mean Platelet Volume 9.9, Immature Granulocyte % (Auto) 1, Neutrophils (%) (Auto) 88H, Lymphocytes (%) (Auto) 5L, Monocytes (%) (Auto) 7, Eosinophils (%) (Auto) 0, Basophils (%) (Auto) 0, Neutrophils # (Auto) 15.4H, Lymphocytes # (Auto) 0.9L, Monocytes # (Auto) 1.2H, Eosinophils # (Auto) 0.0, Basophils # (Auto) 0.0, Immature Granulocyte # (Auto) 0.1, Sodium Level 133L, Potassium Level 3.3L, Chloride Level 103, Carbon Dioxide Level 17L, Anion Gap 13, Blood Urea Nitrogen 12, Creatinine 0.87, Estimat Glomerular Filtration Rate 75, BUN /Creatinine Ratio 14, Glucose Level 133H, Calcium Level 8.7, Corrected Calcium 9.1, Magnesium Level 2.0, Total Bilirubin 1.4H, Aspartate Amino Transf (AST/SGOT) 50H, Alanine Aminotransferase (ALT/SGPT) 30, Alkaline Phosphatase 72, Total Protein 6.6, Albumin 3.5, Triglycerides Level 49, Cholesterol Level 122, LDL Cholesterol Direct 55, VLDL Cholesterol 10, HDL Cholesterol 51, Thyroid Stimulating Hormone (TSH) 1.13 10/23/22 10:41: Glucometer 91 10/23/22 15:23: Glucometer 96 10/23/22 19:53: Glucometer 130H Microbiology 10/22/22 MRSA Screen - Final, Complete MRSA not isolated Assessment/Plan Assessment/Plan Assess & Plan/Chief Complaint Assessment: Hypotension requiring Levophed (cardiogenic shock?) Acute STEMI status post emergent cath with no intervention presumed transient thrombus Continued chest pain placed on nitroglycerin drip no resolved Atrial fibrillation rate variable Hypertension Elevated BMI Hyperlipidemia Leukocytosis without source of infection-improved today 13k no source Recent Strep pharyngitis s/p 2 weeks of antibiotics Hyponatremia Diabetes Plan: Supportive care ICU Monitor labs Cardiology appreciated Levophed required ESR CRP LA Clinical Quality Measures AMI/AHF: ASA po Prior to arrival: AMY Martinez DO October 24, 2022 04:18
[2022-10-24] MEDS: PHENYLEPHRINE DRIP 250 ML IV SCH ×2 (04:26→20:20)
[2022-10-24] MEDS ORDERED: ONDANSETRON 4 MG/2 ML (SDV) Z0FRAN IVP PRN (04:30)
[2022-10-24] MEDS ORDERED: MELATONIN 3 MG TABLET PO PRN (04:30)
[2022-10-24] MEDS ORDERED: ACETAMINOPHEN 325 MG TABLET PO PRN (04:30)
[2022-10-24] MEDS ORDERED: LACTULOSE SYRUP 10GM/15ML (ENULOSE) 30ML UDC PO PRN (04:30)
[2022-10-24 05:04] LABS: BASOPHILS % (AUTO) 0 % (0-10); EOSINOPHILS % (AUTO) 0 % (0-10); HEMATOCRIT 34 % (35-52); HEMOGLOBIN 11.3 g/dL (11.5-16.0); LYMPHOCYTES # (AUTO) 1.6 10^3/uL (1.0-4.0); LYMPHOCYTES % (AUTO) 12 % (12-44); MEAN CORPUSCULAR HEMOGLOBIN 29 pg (25-34); MEAN CORPUSCULAR HGB CONC 34 g/dL (32-36); MEAN CORPUSCULAR VOLUME 88 fL (80-99); MONOCYTES # (AUTO) 1.2 10^3/uL (0.0-1.0); MONOCYTES % (AUTO) 9 % (0-12); NEUTROPHILS # (AUTO) 10.1 10^3/uL (1.8-7.8); NEUTROPHILS % (AUTO) 77 % (42-75); PLATELET COUNT 192 10^3/uL (130-400); WHITE BLOOD COUNT 13.1 10^3/uL (4.3-11.0)
[2022-10-24 05:38] LABS: ALBUMIN 3.1 GM/DL (3.2-4.5); POTASSIUM 3.6 MMOL/L (3.6-5.0)
[2022-10-24 05:39] LABS: CALCIUM 8.4 MG/DL (8.5-10.1)
[2022-10-24 05:40] LABS: TOTAL PROTEIN 6.1 GM/DL (6.4-8.2)
[2022-10-24 05:42] LABS: BILIRUBIN,TOTAL 0.6 MG/DL (0.1-1.0)
[2022-10-24 05:44] LABS: CREATININE SERUM 0.87 MG/DL (0.60-1.30)
[2022-10-24] MEDS: POTASSIUM CL 10MEQ/50ML IVPB 50 ML IV SCH (06:30)
[2022-10-24] MEDS: KCL 20 MEQ TAB (K-DUR) PO SCH (06:30)
[2022-10-24] MEDS: inSUlin ASPART (NovoLOG) 1 UNIT/0.01 ML (CHARGE PER UNIT) SC SCH ×4 (06:31→21:13)
[2022-10-24] MEDS: MAGNESIUM 1 GM/100 ML IVPB 100 ML IV SCH (06:34)
[2022-10-24] MEDS: ASPIRIN 81 MG CHEW (CHILDREN'S ASA) PO SCH (09:39)
[2022-10-24] MEDS: PANTOPRAZOLE 40 MG (PROTONIX) TAB PO SCH ×2 (09:40→09:42)
[2022-10-24] MEDS: EMPAGLIFLOZIN 10 MG TABLET (JARDIANCE) PO SCH (09:41)
[2022-10-24] MEDS: APIXABAN 5 MG (ELIQUIS) TABLET PO SCH ×2 (09:41→20:33)
[2022-10-24] MEDS: polyethylene glycoL POWDER 17 GM (MIRALAX) PACK PO SCH ×2 (09:44→20:32)
[2022-10-24] MEDS: SENNA W/DOCUSATE (SENOKOT S) TABLET PO SCH ×2 (09:45→20:32)
[2022-10-24] MEDS: ALPRAZolam 0.25 MG (XANAX) TAB PO PRN ×2 (11:57→22:29)
--- NOTE | 2022-10-24 12:35 | Cardiology Progress Note ---
Cardiology SOAP Progress Note Subjective: Complains of back discomfort. Objective: I&O/Vital Signs 10/25/22 10/25/22 10/25/22 10/25/22 01:00 01:00 02:00 02:04 Temp 35.9 Pulse 118 110 121 Resp 15 12 B/P (MAP) 107/70 (82) 107/72 (84) Pulse Ox 99 97 O2 Delivery Room Air Room Air 10/25/22 10/25/22 10/25/22 10/25/22 03:00 04:00 04:00 05:00 Pulse 123 118 104 Resp 30 13 14 B/P (MAP) 90/62 (71) 108/76 (87) 106/71 (83) Pulse Ox 94 96 95 94 O2 Delivery Room Air Room Air Room Air Room Air 10/25/22 10/25/22 10/25/22 10/25/22 06:00 07:00 07:00 08:00 Pulse 105 105 87 Resp 25 28 B/P (MAP) 109/71 (84) 116/100 (103) Pulse Ox 94 92 96 O2 Delivery Room Air Room Air Room Air 10/25/22 10/25/22 10/25/22 10/25/22 08:00 08:00 09:00 10:00 Temp 36.4 Pulse 126 125 87 Resp 37 24 B/P (MAP) 110/77 (97) 115/64 (76) 109/67 (84) Pulse Ox 94 O2 Delivery Room Air Room Air Room Air 10/25/22 12:31 Pulse 97 10/25/22 00:00 Intake Total 1140 ml Output Total 950 ml Balance 190 ml Weight (Pounds): 206 Weight (Ounces): 7.0 Weight (Calculated Kilograms): 93.264311 Constitutional: AAO x 3, well-developed, well-nourished Respiratory: No accessory muscle use; chest expansion is symmetric, chest is bilaterally symmetric, other (fair to good, bilateral air entry) Cardiovascular: irregularly irregular (went from regular (sinus rhythm) to irregular (a fib) during card cath of 10/22/22), S1 and S2 Gastrointestional: No tender; soft; No guarding, No rebound; audible bowel sounds Extremities: No clubbing, No cyanosis, No significant edema Neurologic/Psychiatric: oriented x 3, other (moves all limbs equally) Skin: No rash on exposed areas, No ulcerations on exposed areas Results/Procedures: Labs Laboratory Tests 10/24/22 16:18: Glucometer 116H 10/24/22 20:36: Glucometer 114H 10/25/22 06:50: White Blood Count 10.4, Red Blood Count 3.71L, Hemoglobin 10.8L, Hematocrit 32L, Mean Corpuscular Volume 87, Mean Corpuscular Hemoglobin 29, Mean Corpuscular Hemoglobin Concent 34, Red Cell Distribution Width 14.4, Platelet Count 230, Mean Platelet Volume 9.5, Immature Granulocyte % (Auto) 0, Neutrophils (%) (Auto) 74, Lymphocytes (%) (Auto) 15, Monocytes (%) (Auto) 9, Eosinophils (%) (Auto) 1, Basophils (%) (Auto) 1, Neutrophils # (Auto) 7.7, Lymphocytes # (Auto) 1.6, Monocytes # (Auto) 0.9, Eosinophils # (Auto) 0.1, Basophils # (Auto) 0.1, I mmature Granulocyte # (Auto) 0.0, Sodium Level 142, Potassium Level 3.1L, Chloride Level 111H, Carbon Dioxide Level 19L, Anion Gap 12, Blood Urea Nitrogen 11, Creatinine 0.84, Estimat Glomerular Filtration Rate 79, BUN/Creatinine Ratio 13, Glucose Level 106H, Calcium Level 8.7, Corrected Calcium 9.6, Phosphorus Level 2.6, Magnesium Level 2.0, Total Bilirubin 0.6, Aspartate Amino Transf (AST/SGOT) 73H, Alanine Aminotransferase (ALT/SGPT) 52, Alkaline Phosphatase 87, Total Protein 5.9L, Albumin 2.9L, Procalcitonin 0.17H 10/25/22 06:54: Glucometer 109 Microbiology 10/22/22 MRSA Screen - Final, Complete MRSA not isolated A/P: Assessment/Dx: Chest pain Acute MT, Type II Paroxysmal Atrial fibrillation HTN Plan: Perimyocarditis. Chest pain resolved. Will use IV fluid bolus Cardiac catheterization was done by Dr. 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 Continue to monitor DM II Leucocytosis Chronic, intermittent chest discomfort H/o palpitations, none recently. Previous h/o treatment amiodarone that was stopped relatively recently Hypertension, controlled. Hyperlipidemia H/o hypothyroidism managed by thyroid replacement therapy Hypokalemia, hyponatremia, and elevated creatinine (probably pre-renal azotemia) at this presentation, likely due to chronic diuretic usee Obesity, BMI 37.8 Thank you for your consultation. Please call me if you have any questions. Yovany Lynch MD, FACP, FACC, FSCAI, FHRS, CCDS Interventional Cardiology Cardiac Electrophysiology Vascular Medicine and Endovascular Interventions Focused Exam Lactate Level 10/24/22 08:23: Lactic Acid Level 0.84 Clinical Quality Measures AMI/AHF: ASA po Prior to arrival: Swati Cheng MD October 24, 2022 12:35
--- NOTE | 2022-10-24 16:19 | Tele-ICU Progress Note ---
Subjective Date Seen by a Provider: October 24, 2022 Time Seen by a Provider: 16:19 Subjective/Events-last exam (Tele-ICU Physician , Progress Note ) Service provided via interactive audio and video telecommunications E-CARE system to a patient admitted to ICU bed in [facility]. Patient is seen today due to persistent need of ICU care Available chart/ vitals / labs / Images reviewed Video assessment done using teleICU camera, rest of exam as per RN Discussed with RN Events overnight : Afebrile hemodynamically stable Respiratory - ra I/O = neg 2 L Drips: Pressors- bowen Hospital course: (10/22) 62yr F admitted for STEMI s/p CCL for left heart cath with no intervention. 10/23 - a fib rvr - amio gtt, NTG gtt 10/24 - hypotensive , started on levo A/P Hypotension r - started on Levophed (cardiogenic shock with elev trop ?, less likely septic -awit carfds assessment - check PCT A fib RVR - perioperative s/p angiogram -amio gttt -AC witth Eliquis Chest pain - NTG gtt off - TTE with localized anterolateral hypokinesis - s/p cath - clear coronary leukocutosis - suspectet reactive ? Hypothyroidism - continue home meds per primary DM2 - insulin PRN - management per primary NATE - mild , cr 1.4 - resolved Hyponatremia - mild TSH pending - chenge for 1/2 ns to NS - folow , can stop IVF latter GERD - home PPI Lines : periph , (Central Line Necessity Reviewed) Arriola: OG: Nutrition: po Analgesia: Anxiety/ delirium VTE Prophylaxis: eliquis Stress Ulcer Prophylaxis: ppi Plans in collaboration with bedside consultants and IM MDs. Discussed with RN to reach out if any questions or concerns Case and care daily discussed on multidisciplinary rounds ( RN, PharmD, Medical Imaging Technologist , Respiratory Therapy, black off worker ) A total of 15 minutes of critical care time was devoted to this patient today, required to treat and/or prevent further deterioration of critical care condition ( as above ) . I am remotely monitoring this patient from another state. I am unable to do the bedside exam, and history/physical and pertinent information is taken from other notes in the computer and bedside staff. Sepsis Event Evaluation Height, Weight, BMI Height: 5'4.00" Weight: 206lbs. 7.0oz. [id number]; 38.76 BMI Method:Stated Focused Exam Lactate Level 10/24/22 08:23: Lactic Acid Level 0.84 Exam Exam Patient acknowledged, consented, and participated in this virtual visit which was conducted using real time audio/video Vital Signs Date Time Temp Pulse Resp B/P (MAP) Pulse Ox O2 Delivery O2 Flow Rate FiO2 10/24/22 15:00 92 12 99/69 (79) 96 Room Air 10/24/22 14:00 89 111/71 (84) 96 Room Air 10/24/22 13:00 97 Room Air 10/24/22 13:00 84 10/24/22 13:00 85 102/59 (73) 95 Room Air 10/24/22 12:00 89 22 106/69 (81) 98 Room Air 10/24/22 11:00 91 11 105/65 (78) 99 Room Air 10/24/22 10:00 86 12 100/63 (75) 99 Room Air 10/24/22 09:00 118 21 98/62 (74) 97 Room Air 10/24/22 08:00 97 Room Air 10/24/22 08:00 99 34 93/72 (79) 93 Room Air 10/24/22 07:00 106 10/24/22 07:00 82 14 111/68 (82) 98 Room Air 10/24/22 06:00 73 14 116/81 (93) 97 Room Air 10/24/22 05:00 92 13 103/70 (81) 98 Room Air 10/24/22 04:26 96 74/54 10/24/22 04:00 97 Room Air 10/24/22 04:00 36.7 10/24/22 04:00 94 12 86/62 (70) 96 Room Air 10/24/22 03:00 79 12 102/64 (77) 98 Room Air 10/24/22 02:00 95 15 85/64 (71) 97 Room Air 10/24/22 01:00 111 10/24/22 01:00 102 16 85/45 (58) 95 Room Air 10/24/22 00:00 36.4 10/24/22 00:00 96 25 107/47 (67) 96 Room Air 10/24/22 00:00 99 Room Air 10/23/22 23:00 106 25 101/54 (70) 98 Room Air 10/23/22 22:00 106 19 101/55 (70) 98 Room Air 10/23/22 21:00 98 29 82/54 (63) 94 Room Air 10/23/22 20:00 89 20 90/47 (61) 97 Room Air 10/23/22 20:00 98 Room Air 10/23/22 19:11 36.3 10/23/22 19:00 91 10/23/22 19:00 90 12 85/59 (68) 97 Room Air 10/23/22 18:00 82 22 117/104 (108) 95 Room Air 10/23/22 17:00 81 16 119/69 (86) 98 Room Air I & O 10/24/22 06:59 Intake Total 7188 ml Output Total 6425 ml Balance 763 ml Height & Weight Height: 5'4.00" Weight: 206lbs. 7.0oz. [id number]; 38.76 BMI Method:Stated General Appearance: No Apparent Distress, WD/WN, Chronically ill, Obese Neck: Full Range of Motion, Normal Inspection, Non Tender, Supple Respiratory: Lungs Clear, Normal Breath Sounds Cardiovascular: Regular Rate, Rhythm, No Edema, No Murmur, Normal Peripheral Pulses Capillary Refill: Less Than 3 Seconds Extremity: Normal Capillary Refill, Normal Inspection, Normal Range of Motion, Non Tender, No Calf Tenderness, No Pedal Edema Neurologic/Psychiatric: Alert, Oriented x3, No Motor/Sensory Deficits, Normal Mood/Affect Skin: Normal Color, Warm/Dry; No Cyanosis, No Diaphoresis Results Lab Laboratory Tests 10/22/22 16:34 10/23/22 07:25 10/24/22 04:42 Assessment/Plan Assessment/Plan 1 DENTON BREWSTER MD October 24, 2022 16:19
[2022-10-24] MEDS: NS IV 500 ML 500 ML IV SCH (16:32)
[2022-10-24] MEDS: NITRO DRIP 25000 MCG/D5W 250 ML IV SCH (17:32)
[2022-10-24] MEDS: VENlafaxine XR 75 MG (EFFEXOR XR) CAP PO SCH (20:33)
[2022-10-25] MEDS: IBUPROFEN 600 MG (MOTRIN) TAB PO SCH ×5 (00:18→23:15)
[2022-10-25] MEDS: NS IV 1000 ML 1,000 ML IV SCH ×2 (02:46→06:56)
[2022-10-25] MEDS: POTASSIUM CL 10MEQ/50ML IVPB 50 ML IV SCH (05:07)
[2022-10-25] MEDS: MAGNESIUM 1 GM/100 ML IVPB 100 ML IV SCH (05:07)
[2022-10-25] MEDS: KCL 20 MEQ TAB (K-DUR) PO SCH (05:07)
[2022-10-25] MEDS: NS IV 500 ML 500 ML IV SCH (05:08)
[2022-10-25] MEDS: PHENYLEPHRINE DRIP 250 ML IV SCH (05:08)
--- NOTE | 2022-10-25 06:17 | Progress Note ---
Subjective Date Seen by a Provider: October 25, 2022 Time Seen by a Provider: 11:00 Subjective/Events-last exam Patient doing a lot better Anxiety is an issue so Xanax has been very helpful Labs normal Off pressor therapy Cardizem CD120 Mg given A-fib converted to normal sinus rhythm Review of Systems General: Fatigue, Malaise Focused Exam Lactate Level 10/24/22 08:23: Lactic Acid Level 0.84 Objective Exam Last Set of Vital Signs Vital Signs Date Time Temp Pulse Resp B/P (MAP) Pulse Ox O2 Delivery O2 Flow Rate FiO2 10/25/22 06:00 105 25 109/71 (84) 94 Room Air 10/25/22 02:04 35.9 Capillary Refill : Less Than 3 Seconds I&O Intake and Output 10/25/22 00:00 Intake Total 3750 ml Output Total 3550 ml Balance 200 ml Intake Oral 1750 ml IV Total 2000 ml Output Urine Total 3550 ml # Voids 3 General: Alert, Oriented X3, Cooperative, No Acute Distress Lungs: Clear to Auscultation, Normal Air Movement Heart: Regular Rate, Normal S1, Normal S2, No Murmurs Psych/Mental Status: Mental Status NL, Mood NL Results Lab Laboratory Tests 10/24/22 08:23: Mean Blood Glucose 128H, Hemoglobin A1c 6.1H, Lactic Acid Level 0.84 10/24/22 10:29: Glucometer 122H 10/24/22 16:18: Glucometer 116H 10/24/22 20:36: Glucometer 114H Microbiology 10/22/22 MRSA Screen - Final, Complete MRSA not isolated Assessment/Plan Assessment/Plan Assess & Plan/Chief Complaint Assessment: Hypotension requiring Levophed (cardiogenic shock?) Now resolved Acute STEMI status post emergent cath with no intervention presumed transient thrombus Continued chest pain placed on nitroglycerin drip now resolved Atrial fibrillation rate variable converted to NSR Hypertension Elevated BMI Hyperlipidemia Leukocytosis without source of infection-resolved Recent Strep pharyngitis s/p 2 weeks of antibiotics Hyponatremia Diabetes Plan: Supportive care Admit to fourth floor Monitor labs Cardiology appreciated Clinical Quality Measures AMI/AHF: ASA po Prior to arrival: AMY Martinez DO October 25, 2022 06:17
[2022-10-25 06:57] LABS: BASOPHILS # (AUTO) 0.1 10^3/uL (0.0-0.1); BASOPHILS % (AUTO) 1 % (0-10); EOSINOPHILS # (AUTO) 0.1 10^3/uL (0.0-0.3); EOSINOPHILS % (AUTO) 1 % (0-10); HEMATOCRIT 32 % (35-52); HEMOGLOBIN 10.8 g/dL (11.5-16.0); LYMPHOCYTES # (AUTO) 1.6 10^3/uL (1.0-4.0); LYMPHOCYTES % (AUTO) 15 % (12-44); MEAN CORPUSCULAR HEMOGLOBIN 29 pg (25-34); MEAN CORPUSCULAR HGB CONC 34 g/dL (32-36); MEAN CORPUSCULAR VOLUME 87 fL (80-99); MEAN PLATELET VOLUME 9.5 fL (9.0-12.2); MONOCYTES # (AUTO) 0.9 10^3/uL (0.0-1.0); MONOCYTES % (AUTO) 9 % (0-12); NEUTROPHILS # (AUTO) 7.7 10^3/uL (1.8-7.8); NEUTROPHILS % (AUTO) 74 % (42-75); PLATELET COUNT 230 10^3/uL (130-400); WHITE BLOOD COUNT 10.4 10^3/uL (4.3-11.0)
[2022-10-25 07:14] LABS: ALBUMIN 2.9 GM/DL (3.2-4.5); POTASSIUM 3.1 MMOL/L (3.6-5.0)
[2022-10-25 07:15] LABS: CALCIUM 8.7 MG/DL (8.5-10.1)
[2022-10-25 07:17] LABS: TOTAL PROTEIN 5.9 GM/DL (6.4-8.2)
[2022-10-25 07:18] LABS: BILIRUBIN,TOTAL 0.6 MG/DL (0.1-1.0)
[2022-10-25 07:20] LABS: CREATININE SERUM 0.84 MG/DL (0.60-1.30); PHOSPHORUS 2.6 MG/DL (2.3-4.7)
[2022-10-25] MEDS: inSUlin ASPART (NovoLOG) 1 UNIT/0.01 ML (CHARGE PER UNIT) SC SCH ×4 (07:28→20:00)
[2022-10-25] MEDS: NITRO DRIP 25000 MCG/D5W 250 ML IV SCH (07:28)
[2022-10-25] MEDS ORDERED: KCL 20 MEQ TAB (K-DUR) PO ONE ×2 (07:30→09:30)
[2022-10-25] MEDS: APIXABAN 5 MG (ELIQUIS) TABLET PO SCH ×2 (07:51→21:02)
[2022-10-25] MEDS: EMPAGLIFLOZIN 10 MG TABLET (JARDIANCE) PO SCH (07:51)
[2022-10-25] MEDS: ASPIRIN 81 MG CHEW (CHILDREN'S ASA) PO SCH (07:51)
[2022-10-25] MEDS: PANTOPRAZOLE 40 MG (PROTONIX) TAB PO SCH ×2 (07:51→09:00)
[2022-10-25] MEDS: polyethylene glycoL POWDER 17 GM (MIRALAX) PACK PO SCH ×2 (09:23→21:04)
[2022-10-25] MEDS: SENNA W/DOCUSATE (SENOKOT S) TABLET PO SCH ×2 (09:23→21:03)
[2022-10-25] MEDS ORDERED: TOPI-241 PO (11:15)
[2022-10-25] MEDS: dilTIAZem120 MG (CARDIZEM CD) CAP PO SCH (12:56)
[2022-10-25 12:57] VITALS: BP 126/58
--- NOTE | 2022-10-25 14:12 | Cardiology Progress Note ---
Cardiology SOAP Progress Note Subjective: No significant cardiac complaints. Objective: I&O/Vital Signs 10/25/22 10/25/22 10/25/22 10/25/22 03:00 04:00 04:00 05:00 Pulse 123 118 104 Resp 30 13 14 B/P (MAP) 90/62 (71) 108/76 (87) 106/71 (83) Pulse Ox 94 96 95 94 O2 Delivery Room Air Room Air Room Air Room Air 10/25/22 10/25/22 10/25/22 10/25/22 06:00 07:00 07:00 08:00 Pulse 105 105 87 Resp 25 28 B/P (MAP) 109/71 (84) 116/100 (103) Pulse Ox 94 92 96 O2 Delivery Room Air Room Air Room Air 10/25/22 10/25/22 10/25/22 10/25/22 08:00 08:00 09:00 10:00 Temp 36.4 Pulse 126 125 87 Resp 37 24 B/P (MAP) 110/77 (97) 115/64 (76) 109/67 (84) Pulse Ox 94 O2 Delivery Room Air Room Air Room Air 10/25/22 10/25/22 12:31 12:57 Pulse 97 93 B/P (MAP) 126/58 (80) 10/25/22 00:00 Intake Total 1140 ml Output Total 950 ml Balance 190 ml Weight (Pounds): 206 Weight (Ounces): 7.0 Weight (Calculated Kilograms): 93.179913 Constitutional: AAO x 3, well-developed, well-nourished Respiratory: No accessory muscle use; chest expansion is symmetric, chest is bilaterally symmetric, other (fair to good, bilateral air entry) Cardiovascular: irregularly irregular (went from regular (sinus rhythm) to irregular (a fib) during card cath of 10/22/22), S1 and S2 Gastrointestional: No tender; soft; No guarding, No rebound; audible bowel sounds Extremities: No clubbing, No cyanosis, No significant edema Neurologic/Psychiatric: oriented x 3, other (moves all limbs equally) Skin: No rash on exposed areas, No ulcerations on exposed areas Results/Procedures: Labs Laboratory Tests 10/24/22 16:18: Glucometer 116H 10/24/22 20:36: Glucometer 114H 10/25/22 06:50: White Blood Count 10.4, Red Blood Count 3.71L, Hemoglobin 10.8L, Hematocrit 32L, Mean Corpuscular Volume 87, Mean Corpuscular Hemoglobin 29, Mean Corpuscular Hemoglobin Concent 34, Red Cell Distribution Width 14.4, Platelet Count 230, Mean Platelet Volume 9.5, Immature Granulocyte % (Auto) 0, Neutrophils (%) (Auto) 74, Lymphocytes (%) (Auto) 15, Monocytes (%) (Auto) 9, Eosinophils (%) (Auto) 1, Basophils (%) (Auto) 1, Neutrophils # (Auto) 7.7, Lymphocytes # (Auto) 1.6, Monocytes # (Auto) 0.9, Eosinophils # (Auto) 0.1, Basophils # (Auto) 0.1, Immature Granulocyte # (Auto) 0.0, Sodium Level 142, Potassium Level 3.1L, Chloride Level 111H, Carbon Dioxide Level 19L, Anion Gap 12, Blood Urea Nitrogen 11, Creatinine 0.84, Estimat Glomerular Filtration Rate 79, BUN/Creatinine Ratio 13, Glucose Level 106H, Calcium Level 8.7, Corrected Calcium 9.6, Phosphorus Level 2.6, Magnesium Level 2.0, Total Bilirubin 0.6, Aspartate Amino Transf (AST/SGOT) 73H, Alanine Aminotransferase (ALT/SGPT) 52, Alkaline Phosphatase 87, Total Protein 5.9L, Albumin 2.9L, Procalcitonin 0.17H 10/25/22 06:54: Glucometer 109 Microbiology 10/22/22 MRSA Screen - Final, Complete MRSA not isolated A/P: Assessment/Dx: Chest pain Acute MS, Type II Paroxysmal Atrial fibrillation HTN Plan: Perimyocarditis. Chest pain resolved. Cardiac catheterization was done by Dr. 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 Continue to monitor DM II Leucocytosis Chronic, intermittent chest discomfort H/o palpitations, none recently. Previous h/o treatment amiodarone that was stopped relatively recently Hypertension, controlled. Hyperlipidemia H/o hypothyroidism managed by thyroid replacement therapy Hypokalemia, hyponatremia, and elevated creatinine (probably pre-renal azotemia) at this presentation, likely due to chronic diuretic use Obesity, BMI 37.8 Thank you for your consultation. Please call me if you have any questions. Yovany Lynch MD, FACP, FACC, FSCAI, FHRS, CCDS Interventional Cardiology Cardiac Electrophysiology Vascular Medicine and Endovascular Interventions Focused Exam Lactate Level 10/24/22 08:23: Lactic Acid Level 0.84 Clinical Quality Measures AMI/AHF: ASA po Prior to arrival: Swati Cheng MD October 25, 2022 14:12
[2022-10-25 15:41] VITALS: BP 103/51
[2022-10-25 20:00] VITALS: BP 121/61
[2022-10-25] MEDS: VENlafaxine XR 75 MG (EFFEXOR XR) CAP PO SCH (21:03)
[2022-10-25] MEDS: ALPRAZolam 0.25 MG (XANAX) TAB PO PRN (23:15)
[2022-10-26] VITALS: BP 105/63
[2022-10-26 03:14] VITALS: BP 101/62
[2022-10-26] MEDS: IBUPROFEN 600 MG (MOTRIN) TAB PO SCH ×4 (06:08→23:05)
[2022-10-26 06:21] LABS: BASOPHILS # (AUTO) 0.1 10^3/uL (0.0-0.1); BASOPHILS % (AUTO) 1 % (0-10); EOSINOPHILS # (AUTO) 0.1 10^3/uL (0.0-0.3); EOSINOPHILS % (AUTO) 1 % (0-10); HEMATOCRIT 35 % (35-52); HEMOGLOBIN 11.9 g/dL (11.5-16.0); LYMPHOCYTES # (AUTO) 1.7 10^3/uL (1.0-4.0); LYMPHOCYTES % (AUTO) 19 % (12-44); MEAN CORPUSCULAR HEMOGLOBIN 29 pg (25-34); MEAN CORPUSCULAR HGB CONC 34 g/dL (32-36); MEAN CORPUSCULAR VOLUME 86 fL (80-99); MEAN PLATELET VOLUME 9.7 fL (9.0-12.2); MONOCYTES # (AUTO) 0.9 10^3/uL (0.0-1.0); MONOCYTES % (AUTO) 10 % (0-12); NEUTROPHILS # (AUTO) 6.2 10^3/uL (1.8-7.8); NEUTROPHILS % (AUTO) 69 % (42-75); PLATELET COUNT 293 10^3/uL (130-400)
[2022-10-26 06:46] LABS: ALBUMIN 3.1 GM/DL (3.2-4.5); BILIRUBIN,TOTAL 0.6 MG/DL (0.1-1.0); CREATININE SERUM 0.77 MG/DL (0.60-1.30); MAGNESIUM 2.2 MG/DL (1.6-2.4); POTASSIUM 3.7 MMOL/L (3.6-5.0); TOTAL PROTEIN 6.5 GM/DL (6.4-8.2)
--- NOTE | 2022-10-26 07:13 | Progress Note ---
Subjective Date Seen by a Provider: October 26, 2022 Time Seen by a Provider: 11:00 Subjective/Events-last exam Patient doing a lot better Will need home oxygen evaluation for overnight study since she required it last night I suspect sleep apnea we will get a sleep study done soon IV infiltrated will place a moist heating pad No pain is reported Sent all meds to pharmacy so can take it up today from [facility] since [facility] is closed Review of Systems General: Fatigue, Malaise Pulmonary: Dyspnea Cardiovascular: Chest Pain Focused Exam Lactate Level 10/24/22 08:23: Lactic Acid Level 0.84 Objective Exam Last Set of Vital Signs Vital Signs Date Time Temp Pulse Resp B/P (MAP) Pulse Ox O2 Delivery O2 Flow Rate FiO2 10/26/22 03:14 36.0 98 16 101/62 (75) 95 Nasal Cannula 2.00 Capillary Refill : Less Than 3 Seconds I&O Intake and Output 10/26/22 00:00 Intake Total 4260 ml Output Total 1700 ml Balance 2560 ml Intake Oral 3260 ml IV Total 1000 ml Output Urine Total 1700 ml # Voids 6 # Bowel Movements 1 General: Alert, Oriented X3, Cooperative, No Acute Distress Lungs: Clear to Auscultation, Normal Air Movement Heart: Regular Rate, Normal S1, Normal S2, No Murmurs Psych/Mental Status: Mental Status NL, Mood NL Results Lab Laboratory Tests 10/25/22 15:23: Glucometer 68L 10/25/22 17:44: Glucometer 98 10/25/22 19:38: Glucometer 93 10/26/22 05:43: White Blood Count 9.0, Red Blood Count 4.11, Hemoglobin 11.9, Hematocrit 35, Mean Corpuscular Volume 86, Mean Corpuscular Hemoglobin 29, Mean Corpuscular Hemoglobin Concent 34, Red Cell Distribution Width 14.3, Platelet Count 293, Mean Platelet Volume 9.7, Immature Granulocyte % (Auto) 1, Neutrophils (%) (Auto) 69, Lymphocytes (%) (Auto) 19, Monocytes (%) (Auto) 10, Eosinophils (%) (Auto) 1, Basophils (%) (Auto) 1, Neutrophils # (Auto) 6.2, Lymphocytes # (Auto) 1.7, Monocytes # (Auto) 0.9, Eosinophils # (Auto) 0.1, Basophils # (Auto) 0.1, Immature Granulocyte # (Auto) 0.1, Sodium Level 144, Potassium Level 3.7, Chloride Level 110H, Carbon Dioxide Level 22, Anion Gap 12, Blood Urea Nitrogen 10, Creatinine 0.77, Estimat Glomerular Filtration Rate 87, BUN/Creatinine Ratio 13, Glucose Level 117H, Calcium Level 9.0, Corrected Calcium 9.7, Magnesium Level 2.2, Total Bilirubin 0.6, Aspartate Amino Transf (AST/SGOT) 56H, Alanine Aminotransferase (ALT/SGPT) 52, Alkaline Phosphatase 93, Total Protein 6.5, Albumin 3.1L 10/26/22 07:06: Glucometer 94 Microbiology 10/24/22 Blood Culture - Preliminary, Resulted No growth 10/22/22 MRSA Screen - Final, Complete MRSA not isolated Assessment/Plan Assessment/Plan Assess & Plan/Chief Complaint Assessment: Hypotension requiring Levophed (cardiogenic shock?) Now resolved Acute STEMI status post emergent cath with no intervention presumed transient thrombus Continued chest pain placed on nitroglycerin drip now resolved Atrial fibrillation rate variable converted to NSR Hypertension Elevated BMI Hyperlipidemia Leukocytosis without source of infection-resolved Recent Strep pharyngitis s/p 2 weeks of antibiotics Hyponatremia Diabetes IV infiltration of arm Plan: Supportive care Overnight oxygen study tonight Monitor labs Cardiology appreciated Needs sleep study soon Clinical Quality Measures AMI/AHF: ASA po Prior to arrival: AMY Martinez DO October 26, 2022 07:13
[2022-10-26 07:40] VITALS: BP 119/80
[2022-10-26] MEDS: inSUlin ASPART (NovoLOG) 1 UNIT/0.01 ML (CHARGE PER UNIT) SC SCH ×4 (08:10→20:11)
[2022-10-26] MEDS: SENNA W/DOCUSATE (SENOKOT S) TABLET PO SCH ×2 (09:21→20:10)
[2022-10-26] MEDS: ASPIRIN 81 MG CHEW (CHILDREN'S ASA) PO SCH (09:21)
[2022-10-26] MEDS: PANTOPRAZOLE 40 MG (PROTONIX) TAB PO SCH ×2 (09:22)
[2022-10-26] MEDS: dilTIAZem120 MG (CARDIZEM CD) CAP PO SCH (09:22)
[2022-10-26] MEDS: APIXABAN 5 MG (ELIQUIS) TABLET PO SCH ×2 (09:22→20:10)
[2022-10-26] MEDS: EMPAGLIFLOZIN 10 MG TABLET (JARDIANCE) PO SCH (09:23)
[2022-10-26] MEDS: polyethylene glycoL POWDER 17 GM (MIRALAX) PACK PO SCH ×2 (09:28→20:10)
[2022-10-26 11:25] VITALS: BP 122/71
[2022-10-26] MEDS ORDERED: DILT-27 PO (12:34)
[2022-10-26] MEDS ORDERED: MTP25TSR PO (12:34)
[2022-10-26] MEDS ORDERED: APIX5TAB PO (12:34)
[2022-10-26] MEDS ORDERED: ATOR40TA PO (12:36)
[2022-10-26 15:35] VITALS: BP 105/56
--- NOTE | 2022-10-26 16:00 | Cardiology Progress Note ---
Cardiology SOAP Progress Note Subjective: no cardiac complaints Objective: I&O/Vital Signs 10/26/22 10/26/22 10/26/22 10/26/22 07:40 08:00 11:25 15:07 Temp 35.8 36.0 Pulse 92 84 Resp 18 18 B/P (MAP) 119/80 (93) 122/71 (88) Pulse Ox 98 100 O2 Delivery Room Air Nasal Cannula Nasal Cannula Room Air O2 Flow Rate 2.00 2.00 0.00 10/26/22 15:35 Temp 37.0 Pulse 81 Resp 18 B/P (MAP) 105/56 (72) Pulse Ox 98 O2 Delivery Room Air 10/26/22 00:00 Intake Total 2360 ml Balance 2360 ml Weight (Pounds): 206 Weight (Ounces): 7.0 Weight (Calculated Kilograms): [id number] Constitutional: AAO x 3, well-developed, well-nourished Respiratory: No accessory muscle use; chest expansion is symmetric, chest is bilaterally symmetric, other (fair to good, bilateral air entry) Cardiovascular: irregularly irregular (went from regular (sinus rhythm) to irregular (a fib) during card cath of 10/22/22), S1 and S2 Gastrointestional: No tender; soft; No guarding, No rebound; audible bowel sounds Extremities: No clubbing, No cyanosis, No significant edema Neurologic/Psychiatric: oriented x 3, other (moves all limbs equally) Skin: No rash on exposed areas, No ulcerations on exposed areas Results/Procedures: Labs Laboratory Tests 10/25/22 17:44: Glucometer 98 10/25/22 19:38: Glucometer 93 10/26/22 05:43: White Blood Count 9.0, Red Blood Count 4.11, Hemoglobin 11.9, Hematocrit 35, Mean Corpuscular Volume 86, Mean Corpuscular Hemoglobin 29, Mean Corpuscular Hemoglobin Concent 34, Red Cell Distribution Width 14.3, Platelet Count 293, Mean Platelet Volume 9.7, Immature Granulocyte % (Auto) 1, Neutrophils (%) (Auto) 69, Lymphocytes (%) (Auto) 19, Monocytes (%) (Auto) 10, Eosinophils (%) (Auto) 1, Basophils (%) (Auto) 1, Neutrophils # (Auto) 6.2, Lymphocytes # (Auto) 1.7, Monocytes # (Auto) 0.9, Eosinophils # (Auto) 0.1, Basophils # (Auto) 0.1, Immature Granulocyte # (Auto) 0.1, Sodium Level 144, Potassium Level 3.7, Chloride Level 110H, Carbon Dioxide Level 22, Anion Gap 12, Blood Urea Nitrogen 10, Creatinine 0.77, Estimat Glomerular Filtration Rate 87, BUN/Creatinine Ratio 13, Glucose Level 117H, Calcium Level 9.0, Corrected Calcium 9.7, Magnesium Level 2.2, Total Bilirubin 0.6, Aspartate Amino Transf (AST/SGOT) 56H, Alanine Aminotransferase (ALT/SGPT) 52, Alkaline Phosphatase 93, Total Protein 6.5, Albumin 3.1L 10/26/22 07:06: Glucometer 94 10/26/22 09:27: Glucometer 136H 10/26/22 15:08: Glucometer 105 Microbiology 10/24/22 Blood Culture - Preliminary, Resulted No growth 10/22/22 MRSA Screen - Final, Complete MRSA not isolated A/P: Assessment/Dx: Chest pain Acute NM, Type II Paroxysmal Atrial fibrillation HTN Plan: Perimyocarditis. Chest pain resolved. Cardiac catheterization was done by Dr. 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 ventricular rate is controlled. Continue to monitor DM II Leucocytosis Chronic, intermittent chest discomfort H/o palpitations, none recently. Previous h/o treatment amiodarone that was stopped relatively recently Hypertension, controlled. Hyperlipidemia H/o hypothyroidism managed by thyroid replacement therapy Hypokalemia, hyponatremia, and elevated creatinine (probably pre-renal azotemia) at this presentation, likely due to chronic diuretic use Obesity, BMI 37.8 Thank you for your consultation. Please call me if you have any questions. Yovany Lynch MD, FACP, FACC, FSCAI, FHRS, CCDS Interventional Cardiology Cardiac Electrophysiology Vascular Medicine and Endovascular Interventions Focused Exam Lactate Level 10/24/22 08:23: Lactic Acid Level 0.84 Clinical Quality Measures AMI/AHF: ASA po Prior to arrival: Swati Cheng MD October 26, 2022 16:00
[2022-10-26] MEDS: VENlafaxine XR 75 MG (EFFEXOR XR) CAP PO SCH (20:09)
[2022-10-26 20:31] VITALS: BP 109/58
[2022-10-27] VITALS: BP 108/70
[2022-10-27 03:56] VITALS: BP 95/54
[2022-10-27] MEDS: inSUlin ASPART (NovoLOG) 1 UNIT/0.01 ML (CHARGE PER UNIT) SC SCH ×2 (05:47→10:55)
[2022-10-27 06:08] LABS: BASOPHILS % (AUTO) 1 % (0-10); EOSINOPHILS # (AUTO) 0.1 10^3/uL (0.0-0.3); EOSINOPHILS % (AUTO) 1 % (0-10); HEMATOCRIT 32 % (35-52); HEMOGLOBIN 10.7 g/dL (11.5-16.0); LYMPHOCYTES # (AUTO) 1.8 10^3/uL (1.0-4.0); LYMPHOCYTES % (AUTO) 23 % (12-44); MEAN CORPUSCULAR HEMOGLOBIN 29 pg (25-34); MEAN CORPUSCULAR HGB CONC 34 g/dL (32-36); MEAN CORPUSCULAR VOLUME 85 fL (80-99); MEAN PLATELET VOLUME 9.2 fL (9.0-12.2); MONOCYTES # (AUTO) 0.8 10^3/uL (0.0-1.0); MONOCYTES % (AUTO) 10 % (0-12); NEUTROPHILS % (AUTO) 64 % (42-75); PLATELET COUNT 287 10^3/uL (130-400); WHITE BLOOD COUNT 7.9 10^3/uL (4.3-11.0)
[2022-10-27 06:29] LABS: BILIRUBIN,TOTAL 0.6 MG/DL (0.1-1.0); CALCIUM 8.7 MG/DL (8.5-10.1); CREATININE SERUM 0.78 MG/DL (0.60-1.30); MAGNESIUM 2.1 MG/DL (1.6-2.4); POTASSIUM 3.2 MMOL/L (3.6-5.0); TOTAL PROTEIN 6.1 GM/DL (6.4-8.2)
[2022-10-27] MEDS: IBUPROFEN 600 MG (MOTRIN) TAB PO SCH (06:35)
[2022-10-27 08:16] VITALS: BP 109/73
[2022-10-27] MEDS: dilTIAZem120 MG (CARDIZEM CD) CAP PO SCH (08:46)
[2022-10-27] MEDS: ASPIRIN 81 MG CHEW (CHILDREN'S ASA) PO SCH (08:46)
[2022-10-27] MEDS: PANTOPRAZOLE 40 MG (PROTONIX) TAB PO SCH ×2 (08:46→10:56)
[2022-10-27] MEDS: APIXABAN 5 MG (ELIQUIS) TABLET PO SCH (08:46)
[2022-10-27] MEDS: EMPAGLIFLOZIN 10 MG TABLET (JARDIANCE) PO SCH (08:47)
[2022-10-27] MEDS: polyethylene glycoL POWDER 17 GM (MIRALAX) PACK PO SCH (08:49)
[2022-10-27] MEDS: SENNA W/DOCUSATE (SENOKOT S) TABLET PO SCH (08:49)
[2022-10-27 11:29] VITALS: BP 111/71
--- NOTE | 2022-10-27 11:40 | Discharge Summary ---
Diagnosis/Chief Complaint Date of Admission October 22, 2022 at 19:53 Date of Discharge Discharge Date: October 27, 2022 Discharge Diagnosis Assessment: Hypotension requiring Levophed (cardiogenic shock?) Now resolved Acute STEMI status post emergent cath with no intervention presumed transient thrombus Continued chest pain placed on nitroglycerin drip now resolved Atrial fibrillation rate variable converted to NSR Hypertension Elevated BMI Hyperlipidemia Leukocytosis without source of infection-resolved Recent Strep pharyngitis s/p 2 weeks of antibiotics Hyponatremia Diabetes IV infiltration of arm Nocturnal hypoxia requiring oxygen supplementation at night only at discharge Suspected DAVID Plan: Supportive care Overnight oxygen study tonight Monitor labs Cardiology appreciated Needs sleep study soon Discharge Summary Discharge Physical Examination Allergies: Coded Allergies: morphine (Verified Allergy, Mild, RASH, ITCHING, AGITATION, 10/23/22) Patient has received Hydrocodone and Oxycodone in the past Vitals & I&Os Vital Signs Date Time Temp Pulse Resp B/P (MAP) Pulse Ox O2 Delivery O2 Flow Rate FiO2 10/27/22 13:13 36.4 102 18 111/71 96 Room Air 2.00 General Appearance: Alert, Oriented X3, Cooperative HEENT: Atraumatic Respiratory: Clear to Auscultation Cardiovascular: Regular Rate Psych/Mental Status: Mental Status NL Hospital Course Was the Problem List Reviewed?: Yes Hospital course: Patient had a lengthy hospital course most of in the ICU after suffering what was assessed to be a STEMI requiring emergent catheterization but upon insertion of catheter there was no thrombus so it was assessed to have a transient thrombus causing elevated troponin but ultimately required anticoagulation and Cardizem drip for atrial fibrillation with RVR which cardiology managed. Labs remained stable. Hypotension occurred requiring IV fluid resuscitation and Levophed without source of infection. Elevated white count was likely due to stress response and that was normal at time of discharge. Suspected sleep apnea required home O2 evaluation overnight study she did require 2 L that was ordered at discharge. She will need a sleep study. Overall she did very well she was back to her baseline activity and she was deemed stable for discharge all medications were sent and the day before the holiday and picked them up and she will follow-up with me. Labs (last 24 hrs) Laboratory Tests 10/22/22 16:34: White Blood Count 19.6H, Red Blood Count 4.87, Hemoglobin 14.5, Hematocrit 41, Mean Corpuscular Volume 85, Mean Corpuscular Hemoglobin 30, Mean Corpuscular He moglobin Concent 35, Red Cell Distribution Width 13.9, Platelet Count 205, Mean Platelet Volume 9.7, Immature Granulocyte % (Auto) 1, Neutrophils (%) (Auto) 83H , Lymphocytes (%) (Auto) 11L, Monocytes (%) (Auto) 5, Eosinophils (%) (Auto) 0, Basophils (%) (Auto) 0, Neutrophils # (Auto) 16.3H, Lymphocytes # (Auto) 2.2, Monocytes # (Auto) 1.0, Eosinophils # (Auto) 0.0, Basophils # (Auto) 0.0, Immature Granulocyte # (Auto) 0.1, Neutrophils % (Manual) 81, Lymphocytes % (Manual) 16, Monocytes % (Manual) 3, Platelet Estimate NORMAL, Blood Morphology Comment NORMAL, Prothrombin Time 14.1, INR Comment 1.1, Activated Partial Thromboplast Time 30, Sodium Level 132L, Potassium Level 2.7L, Chloride Level 93L, Carbon Dioxide Level 25, Anion Gap 14, Blood Urea Nitrogen 17, Creatinine 1.35H, Estimat Glomerular Filtration Rate 44, BUN/Creatinine Ratio 13, Glucose Level 194H, Calcium Level 9.8, Corrected Calcium 9.7, Magnesium Level 2.2, Total Bilirubin 0.8, Aspartate Amino Transf (AST/SGOT) 49H, Alanine Aminotransferase (ALT/SGPT) 33, Alkaline Phosphatase 85, Myoglobin 96.6H, Troponin I 6.188*H, Total Protein 7.9, Albumin 4.1 10/22/22 16:36: Glucometer 204H 10/23/22 05:42: Glucometer 116H 10/23/22 07:25: White Blood Count 17.6H, Red Blood Count 4.06, Hemoglobin 12.0, Hematocrit 35, M kalia Corpuscular Volume 85, Mean Corpuscular Hemoglobin 30, Mean Corpuscular Hemoglobin Concent 35, Red Cell Distribution Width 13.9, Platelet Count 187, Mean Platelet Volume 9.9, Immature Granulocyte % (Auto) 1, Neutrophils (%) (Auto) 88H, Lymphocytes (%) (Auto) 5L, Monocytes (%) (Auto) 7, Eosinophils (%) (Auto) 0, Basophils (%) (Auto) 0, Neutrophils # (Auto) 15.4H, Lymphocytes # (Auto) 0.9L, Monocytes # (Auto) 1.2H, Eosinophils # (Auto) 0.0, Basophils # (Auto) 0.0, Immature Granulocyte # (Auto) 0.1, Sodium Level 133L, Potassium Level 3.3L, Chloride Level 103, Carbon Dioxide Level 17L, Anion Gap 13, Blood Urea Nitrogen 12, Creatinine 0.87, Estimat Glomerular Filtration Rate 75, BUN/Creatinine Ratio 14, Glucose Level 133H, Calcium Level 8.7, Corrected Calcium 9.1, Magnesium Level 2.0, Total Bilirubin 1.4H, Aspartate Amino Transf (AST/SGOT) 50H, Alanine Aminotransferase (ALT/SGPT) 30, Alkaline Phosphatase 72, Total Protein 6.6, Albumin 3.5, Triglycerides Level 49, Cholesterol Level 122, LDL Cholesterol Direct 55, VLDL Cholesterol 10, HDL Cholesterol 51, Thyroid Stimulating Hormone (TSH) 1.13 10/23/22 10:41: Glucometer 91 10/23/22 15:23: Glucometer 96 10/23/22 19:53: Glucometer 130H 10/24/22 04:42: White Blood Count 13.1H, Red Blood Count 3.84, Hemoglobin 11.3L, Hematocrit 34L, Mean Corpuscular Volume 88, Mean Corpuscular Hemoglobin 29, Mean Corpuscular Hemoglobin Concent 34, Red Cell Distribution Width 14.4, Platelet Count 192, Mean Platelet Volume 10.0, Immature Granulocyte % (Auto) 1, Neutrophils (%) (Auto) 77H, Lymphocytes (%) (Auto) 12, Monocytes (%) (Auto) 9, Eosinophils (%) (Auto) 0, Basophils (%) (Auto) 0, Neutrophils # (Auto) 10.1H, Lymphocytes # (Auto) 1.6, Monocytes # (Auto) 1.2H, Eosinophils # (Auto) 0.0, Basophils # (Auto) 0.0, Immature Granulocyte # (Auto) 0.1, Erythrocyte Sedimentation Rate 66H, Sodium Level 140, Potassium Level 3.6, Chloride Level 110H, Carbon Dioxide Level 17L, Anion Gap 13, Blood Urea Nitrogen 12, Creatinine 0.87, Estimat Glomerular Filtration Rate 75, BUN/Creatinine Ratio 14, Glucose Level 120H, Calcium Level 8.4L, Corrected Calcium 9.1, Magnesium Level 2.1, Total Bilirubin 0.6, Aspartate Amino Transf (AST/SGOT) 63H, Alanine Aminotransferase (ALT/SGPT) 38, Alkaline Phosphatase 69, Troponin I 8.334*H, C-Reactive Protein High Sensitivity 26.50H, Total Protein 6.1L, Albumin 3.1L 10/24/22 08:23: Mean Blood Glucose 128H, Hemoglobin A1c 6.1H, Lactic Acid Level 0.84 10/24/22 10:29: Glucometer 122H 10/24/22 16:18: Glucometer 116H 10/24/22 20:36: Glucometer 114H 10/25/22 06:50: White Blood Count 10.4, Red Blood Count 3.71L, Hemoglobin 10.8L, Hematocrit 32L, Mean Corpuscular Volume 87, Mean Corpuscular Hemoglobin 29, Mean Corpuscular Hemoglobin Concent 34, Red Cell Distribution Width 14.4, Platelet Count 230, Mean Platelet Volume 9.5, Immature Granulocyte % (Auto) 0, Neutrophils (%) (Auto) 74, Lymphocytes (%) (Auto) 15, Monocytes (%) (Auto) 9, Eosinophils (%) (Auto) 1, Basophils (%) (Auto) 1, Neutrophils # (Auto) 7.7, Lymphocytes # (Auto) 1.6, Monocytes # (Auto) 0.9, Eosinophils # (Auto) 0.1, Basophils # (Auto) 0.1, Immature Granulocyte # (Auto) 0.0, Sodium Level 142, Potassium Level 3.1L, Chloride Level 111H, Carbon Dioxide Level 19L, Anion Gap 12, Blood Urea Nitrogen 11, Creatinine 0.84, Estimat Glomerular Filtration Rate 79, BUN/Creatinine Ratio 13, Glucose Level 106H, Calcium Level 8.7, Corrected Calcium 9.6, Phosphorus Level 2.6, Magnesium Level 2.0, Total Bilirubin 0.6, Aspartate Amino Transf (AST/SGOT) 73H, Alanine Aminotransferase (ALT/SGPT) 52, Alkaline Phosphatase 87, Total Protein 5.9L, Albumin 2.9L, Procalcitonin 0.17H 10/25/22 06:54: Glucometer 109 10/25/22 15:23: Glucometer 68L 10/25/22 17:44: Glucometer 98 10/25/22 19:38: Glucometer 93 10/26/22 05:43: White Blood Count 9.0, Red Blood Count 4.11, Hemoglobin 11.9, Hematocrit 35, Mean Corpuscular Volume 86, Mean Corpuscular Hemoglobin 29, Mean Corpuscular Hemoglobin Concent 34, Red Cell Distribution Width 14.3, Platelet Count 293, Mean Platelet Volume 9.7, Immature Granulocyte % (Auto) 1, Neutrophils (%) (Auto) 69, Lymphocytes (%) (Auto) 19, Monocytes (%) (Auto) 10, Eosinophils (%) (Auto) 1, Basophils (%) (Auto) 1, Neutrophils # (Auto) 6.2, Lymphocytes # (Auto) 1.7, Monocytes # (Auto) 0.9, Eosinophils # (Auto) 0.1, Basophils # (Auto) 0.1, Immature Granulocyte # (Auto) 0.1, Sodium Level 144, Potassium Level 3.7, Chloride Level 110H, Carbon Dioxide Level 22, Anion Gap 12, Blood Urea Nitrogen 10, Creatinine 0.77, Estimat Glomerular Filtration Rate 87, BUN/Creatinine Ratio 13, Glucose Level 117H, Calcium Level 9.0, Corrected Calcium 9.7, Magnesium Level 2.2, Total Bilirubin 0.6, Aspartate Amino Transf (AST/SGOT) 56H, Alanine Aminotransferase (ALT/SGPT) 52, Alkaline Phosphatase 93, Total Protein 6.5, Albumin 3.1L 10/26/22 07:06: Glucometer 94 10/26/22 09:27: Glucometer 136H 10/26/22 15:08: Glucometer 105 10/26/22 20:05: Glucometer 89 10/27/22 05:20: White Blood Count 7.9, Red Blood Count 3.70L, Hemoglobin 10.7L, Hematocrit 32L, Mean Corpuscular Volume 85, Mean Corpuscular Hemoglobin 29, Mean Corpuscular Hemoglobin Concent 34, Red Cell Distribution Width 14.2, Platelet Count 287, Mean Platelet Volume 9.2, Immature Granulocyte % (Auto) 1, Neutrophils (%) (Auto) 64, Lymphocytes (%) (Auto) 23, Monocytes (%) (Auto) 10, Eosinophils (%) (Auto) 1, Basophils (%) (Auto) 1, Neutrophils # (Auto) 5.0, Lymphocytes # (Auto) 1.8, Monocytes # (Auto) 0.8, Eosinophils # (Auto) 0.1, Basophils # (Auto) 0.0, Immature Granulocyte # (Auto) 0.1, Sodium Level 142, Potassium Level 3.2L, Chloride Level 108H, Carbon Dioxide Level 22, Anion Gap 12, Blood Urea Nitrogen 11, Creatinine 0.78, Estimat Glomerular Filtration Rate 86, BUN/Creatinine Ratio 14, Glucose Level 112H, Calcium Level 8.7, Corrected Calcium 9.5, Magnesium Level 2.1, Total Bilirubin 0.6, Aspartate Amino Transf (AST/SGOT) 48H, Alanine Aminotransferase (ALT/SGPT) 52, Alkaline Phosphatase 85, Total Protein 6.1L, Albumin 3.0L 10/27/22 05:45: Glucometer 97 10/27/22 10:16: Glucometer 116H Microbiology 10/24/22 Blood Culture - Preliminary, Resulted No growth 10/22/22 MRSA Screen - Final, Complete MRSA not isolated Pending Labs Microbiology Date/Time Source Procedure Growth Status 10/24/22 08:37 Peripheral Iv/Heplock Blood Culture - Preliminary No growth Resulted 10/24/22 08:23 Peripheral Not Otherwise Specified Blood Culture - Preliminary No growth Resulted 10/22/22 21:40 Nasal MRSA Screen - Final MRSA not isolated Complete Laboratory Tests 10/22/22 16:34: White Blood Count 19.6, Red Blood Count 4.87, Hemoglobin 14.5, Hematocrit 41, Mean Corpuscular Volume 85, Mean Corpuscular Hemoglobin 30, Mean Corpuscular Hemoglobin Concent 35, Red Cell Distribution Width 13.9, Platelet Count 205, Mean Platelet Volume 9.7, Immature Granulocyte % (Auto) 1, Neutrophils (%) (Auto) 83, Lymphocytes (%) (Auto) 11, Monocytes (%) (Auto) 5, Eosinophils (%) (Auto) 0, Basophils (%) (Auto) 0, Neutrophils # (Auto) 16.3, Lymphocytes # (Auto) 2.2, Monocytes # (Auto) 1.0, Eosinophils # (Auto) 0.0, Basophils # (Auto) 0.0, Immature Granulocyte # (Auto) 0.1, Neutrophils % (Manual) 81, Lymphocytes % (Manual) 16, Monocytes % (Manual) 3, Platelet Estimate NORMAL, Blood Morphology Comment NORMAL, Prothrombin Time 14.1, INR Comment 1.1, Activated Partial Thromboplast Time 30, Sodium Level 132, Potassium Level 2.7, Chloride Level 93, Carbon Dioxide Level 25, Anion Gap 14, Blood Urea Nitrogen 17, Creatinine 1.35, Estimat Glomerular Filtration Rate 44, BUN/Creatinine Ratio 13, Glucose Level 194, Calcium Level 9.8, Corrected Calcium 9.7, Magnesium Level 2.2, Total Bilirubin 0.8, Aspartate Amino Transf (AST/SGOT) 49, Alanine Aminotransferase (ALT/SGPT) 33, Alkaline Phosphatase 85, Myoglobin 96.6, Troponin I 6.188, Total Protein 7.9, Albumin 4.1 10/22/22 16:36: Glucometer 204 10/23/22 05:42: Glucometer 116 10/23/22 07:25: White Blood Count 17.6, Red Blood Count 4.06, Hemoglobin 12.0, Hematocrit 35, Mean Corpuscular Volume 85, Mean Corpuscular Hemoglobin 30, Mean Corpuscular Hemoglobin Concent 35, Red Cell Distribution Width 13.9, Platelet Count 187, Mean Platelet Volume 9.9, Immature Granulocyte % (Auto) 1, Neutrophils (%) (Auto) 88, Lymphocytes (%) (Auto) 5, Monocytes (%) (Auto) 7, Eosinophils (%) (Auto) 0, Basophils (%) (Auto) 0, Neutrophils # (Auto) 15.4, Lymphocytes # (Auto) 0.9, Monocytes # (Auto) 1.2, Eosinophils # (Auto) 0.0, Basophils # (Auto) 0.0, Immature Granulocyte # (Auto) 0.1, Sodium Level 133, Potassium Level 3.3, Chloride Level 103, Carbon Dioxide Level 17, Anion Gap 13, Blood Urea Nitrogen 12, Creatinine 0.87, Estimat Glomerular Filtration Rate 75, BUN/Creatinine Ratio 14, Glucose Level 133, Calcium Level 8.7, Corrected Calcium 9.1, Magnesium Level 2.0, Total Bilirubin 1.4, Aspartate Amino Transf (AST/SGOT) 50, Alanine Aminotra nsferase (ALT/SGPT) 30, Alkaline Phosphatase 72, Total Protein 6.6, Albumin 3.5, Triglycerides Level 49, Cholesterol Level 122, LDL Cholesterol Direct 55, VLDL Cholesterol 10, HDL Cholesterol 51, Thyroid Stimulating Hormone (TSH) 1.13 10/23/22 10:41: Glucometer 91 10/23/22 15:23: Glucometer 96 10/23/22 19:53: Glucometer 130 10/24/22 04:42: White Blood Count 13.1, Red Blood Count 3.84, Hemoglobin 11.3, Hematocrit 34, Mean Corpuscular Volume 88, Mean Corpuscular Hemoglobin 29, Mean Corpuscular Hemoglobin Concent 34, Red Cell Distribution Width 14.4, Platelet Count 192, Mean Platelet Volume 10.0, Immature Granulocyte % (Auto) 1, Neutrophils (%) (Auto) 77, Lymphocytes (%) (Auto) 12, Monocytes (%) (Auto) 9, Eosinophils (%) (Auto) 0, Basophils (%) (Auto) 0, Neutrophils # (Auto) 10.1, Lymphocytes # (Auto) 1.6, Monocytes # (Auto) 1.2, Eosinophils # (Auto) 0.0, Basophils # (Auto) 0.0, Immature Granulocyte # (Auto) 0.1, Erythrocyte Sedimentation Rate 66, Sodium Level 140, Potassium Level 3.6, Chloride Level 110, Carbon Dioxide Level 17, Anion Gap 13, Blood Urea Nitrogen 12, Creatinine 0.87, Estimat Glomerular Filtration Rate 75, BUN/Creatinine Ratio 14, Glucose Level 120, Calcium Level 8.4, Corrected Calcium 9.1, Magnesium Level 2.1, Total Bilirubin 0.6, Aspartate Amino Transf (AST/SGOT) 63, Alanine Aminotransferase (ALT/SGPT) 38, Alkaline Phosphatase 69, Troponin I 8.334, C-Reactive Protein High Sensitivity 26.50, Total Protein 6.1, Albumin 3.1 10/24/22 08:23: Mean Blood Glucose 128, Hemoglobin A1c 6.1, Lactic Acid Level 0.84, Anti- Streptolysin O Antibody Titer [Pending] 10/24/22 10:29: Glucometer 122 10/24/22 16:18: Glucometer 116 10/24/22 20:36: Glucometer 114 10/25/22 06:50: White Blood Count 10.4, Red Blood Count 3.71, Hemoglobin 10.8, Hematocrit 32, Mean Corpuscular Volume 87, Mean Corpuscular Hemoglobin 29, Mean Corpuscular Hemoglobin Concent 34, Red Cell Distribution Width 14.4, Platelet Count 230, Mean Platelet Volume 9.5, Immature Granulocyte % (Auto) 0, Neutrophils (%) (Auto) 74, Lymphocytes (%) (Auto) 15, Monocytes (%) (Auto) 9, Eosinophils (%) (Auto) 1, Basophils (%) (Auto) 1, Neutrophils # (Auto) 7.7, Lymphocytes # (Auto) 1.6, Monocytes # (Auto) 0.9, Eosinophils # (Auto) 0.1, Basophils # (Auto) 0.1, Immature Granulocyte # (Auto) 0.0, Sodium Level 142, Potassium Level 3.1, Chloride Level 111, Carbon Dioxide Level 19, Anion Gap 12, Blood Urea Nitrogen 11, Creatinine 0.84, Estimat Glomerular Filtration Rate 79, BUN/Creatinine Ratio 13, Glucose Level 106, Calcium Level 8.7, Corrected Calcium 9.6, Phosphorus Level 2.6, Magnesium Level 2.0, Total Bilirubin 0.6, Aspartate Amino Transf (AST /SGOT) 73, Alanine Aminotransferase (ALT/SGPT) 52, Alkaline Phosphatase 87, Total Protein 5.9, Albumin 2.9, Procalcitonin 0.17 10/25/22 06:54: Glucometer 109 10/25/22 15:23: Glucometer 68 10/25/22 17:44: Glucometer 98 10/25/22 19:38: Glucometer 93 10/26/22 05:43: White Blood Count 9.0, Red Blood Count 4.11, Hemoglobin 11.9, Hematocrit 35, Mean Corpuscular Volume 86, Mean Corpuscular Hemoglobin 29, Mean Corpuscular Hemoglobin Concent 34, Red Cell Distribution Width 14.3, Platelet Count 293, Mean Platelet Volume 9.7, Immature Granulocyte % (Auto) 1, Neutrophils (%) (Auto) 69, Lymphocytes (%) (Auto) 19, Monocytes (%) (Auto) 10, Eosinophils (%) (Auto) 1, Basophils (%) (Auto) 1, Neutrophils # (Auto) 6.2, Lymphocytes # (Auto) 1.7, Monocytes # (Auto) 0.9, Eosinophils # (Auto) 0.1, Basophils # (Auto) 0.1, Immature Granulocyte # (Auto) 0.1, Sodium Level 144, Potassium Level 3.7, Chloride Level 110, Carbon Dioxide Level 22, Anion Gap 12, Blood Urea Nitrogen 10, Creatinine 0.77, Estimat Glomerular Filtration Rate 87, BUN/Creatinine Ratio 13, Glucose Level 117, Calcium Level 9.0, Corrected Calcium 9.7, Magnesium Level 2.2, Total Bilirubin 0.6, Aspartate Amino Transf (AST/SGOT) 56, Alanine Aminotransferase (ALT/SGPT) 52, Alkaline Phosphatase 93, Total Protein 6.5, Albumin 3.1 10/26/22 07:06: Glucometer 94 10/26/22 09:27: Glucometer 136 10/26/22 15:08: Glucometer 105 10/26/22 20:05: Glucometer 89 10/27/22 05:20: White Blood Count 7.9, Red Blood Count 3.70, Hemoglobin 10.7, Hematocrit 32, Mean Corpuscular Volume 85, Mean Corpuscular Hemoglobin 29, Mean Corpuscular Hemoglobin Concent 34, Red Cell Distribution Width 14.2, Platelet Count 287, Mean Platelet Volume 9.2, Immature Granulocyte % (Auto) 1, Neutrophils (%) (Auto) 64, Lymphocytes (%) (Auto) 23, Monocytes (%) (Auto) 10, Eosinophils (%) (Auto) 1, Basophils (%) (Auto) 1, Neutrophils # (Auto) 5.0, Lymphocytes # (Auto) 1.8, Monocytes # (Auto) 0.8, Eosinophils # (Auto) 0.1, Basophils # (Auto) 0.0, Immature Granulocyte # (Auto) 0.1, Sodium Level 142, Potassium Level 3.2, Chloride Level 108, Carbon Dioxide Level 22, Anion Gap 12, Blood Urea Nitrogen 11, Creatinine 0.78, Estimat Glomerular Filtration Rate 86, BUN/Creatinine Ratio 14, Glucose Level 112, Calcium Level 8.7, Corrected Calcium 9.5, Magnesium Level 2.1, Total Bilirubin 0.6, Aspartate Amino Transf (AST/SGOT) 48, Alanine Aminotransferase (ALT/SGPT) 52, Alkaline Phosphatase 85, Total Protein 6.1, Albumin 3.0 10/27/22 05:45: Glucometer 97 10/27/22 10:16: Glucometer 116 Discharge Home Medications: Active Scripts Active Lipitor (Atorvastatin Calcium) 40 Mg Tablet 40 Mg PO DAILY Diltiazem 24Hr ER (Diltiazem HCl) 120 Mg Cap.er.24h 120 Mg PO DAILY Metoprolol Succinate 25 Mg Tab.er.24h 25 Mg PO DAILY Eliquis (Apixaban) 5 Mg Tablet 5 Mg PO BID Reported Topiramate 50 Mg Tablet 50 Mg PO DAILY Ozempic (Semaglutide) 0.25 Mg/0.2 Ml Pen.injctr 0.5 Mg SQ WEEK Omeprazole 40 Mg Capsule.dr 40 Mg PO DAILY Atorvastatin Calcium 20 Mg Tablet 20 Mg PO HS Aspirin EC (Aspirin) 81 Mg Tablet.dr 81 Mg PO HS Estradiol Tablet (Estradiol) 1 Mg Tablet 1 Mg PO HS Jardiance (Empagliflozin) 25 Mg Tablet 25 Mg PO HS Levothyroxine Sodium 100 Mcg Tablet 100 Mcg PO HS Venlafaxine HCl ER (Venlafaxine HCl) 150 Mg Cap.er.24h 150 Mg PO HS Montelukast Sodium 10 Mg Tablet 10 Mg PO HS Instructions to patient/family Please see electronic discharge instructions given to patient. Clinical Quality Measures AMI/AHF: ASA po Prior to arrival: AMY Martinez DO October 27, 2022 11:40
[2022-10-27 13:13] VITALS: BP 111/71
== END 2022-10-27 13:05 | disposition home or self-care (01) | DRG 280 ==
LOC: EDUNIT# 16:23 → ER 16:24 → CATH 17:32 → ICU 19:53 → 4TH 10-25 11:49
PROVIDERS: ADMIT Internal Medicine; ATTEND Internal Medicine
PROC: 4A023N7 Measurement of Cardiac Sampling and Pressure, Left Heart, Percutaneous Approach (ICD-10-PCS; principal; 2022-10-22)
PROC: B2111ZZ Fluoroscopy of Multiple Coronary Arteries using Low Osmolar Contrast (ICD-10-PCS; 2022-10-22)
PROC: B2151ZZ Fluoroscopy of Left Heart using Low Osmolar Contrast (ICD-10-PCS; 2022-10-22)
PROC: B3101ZZ Fluoroscopy of Thoracic Aorta using Low Osmolar Contrast (ICD-10-PCS; 2022-10-22)
DX: I21.A1 Myocardial infarction type 2 (principal); R57.0 Cardiogenic shock; E87.1 Hypo-osmolality and hyponatremia; N17.9 Acute kidney failure, unspecified; I48.19 Other persistent atrial fibrillation; I51.4 Myocarditis, unspecified; E11.9 Type 2 diabetes mellitus without complications; D72.829 Elevated white blood cell count, unspecified; I10 Essential (primary) hypertension; E78.5 Hyperlipidemia, unspecified; E03.9 Hypothyroidism, unspecified; E87.6 Hypokalemia; E66.9 Obesity, unspecified; Z68.37 Body mass index [BMI] 37.0-37.9, adult; Z79.82 Long term (current) use of aspirin; Z79.899 Other long term (current) drug therapy; K21.9 Gastro-esophageal reflux disease without esophagitis; I95.9 Hypotension, unspecified; R09.02 Hypoxemia; G47.33 Obstructive sleep apnea (adult) (pediatric); I48.0 Paroxysmal atrial fibrillation
CPT/HCPCS: 36415; 71045; 80053; 80061; 82947; 83036; 83605; 83735; 83874; 84100; 84145; 84443; 84484; 85007; 85025; 85027; 85347; 85610; 85652; 85730; 86060; 86141; 87040; 87081; 93005; 93041; 93308; 93458; 93567

== ENCOUNTER → 2022-11-06 | Outpatient (CLI) | payer BC, OTHER ==
[~2022-11-06] MED LIST changes: +APIX5TAB PO; +ATOR40TA PO; +DILT-27 PO; +MTP25TSR PO
--- NOTE | 2022-11-06 13:47 | Diagnostic Imaging Report ---
Indication: Routine screening. Comparison is made with prior mammograms 08/30/2021 and 08/31/2020. 2-D and 3-D bilateral screening mammography was performed with CAD. Both breasts are heterogeneously dense, limiting the sensitivity of mammography. The parenchymal pattern is stable. No mass or malignant-appearing microcalcifications are seen. Axillae are unremarkable. IMPRESSION: BI-RADS Category 1 No mammographic features suspicious for malignancy are identified. ACR BI-RADS Category 1: Negative. Result letter will be mailed to the patient. Note: At least 10% of breast cancer is not imaged by mammography. Dictated by: Dictated on workstation # [id number]
== END ==
LOC: RAD 10:19
PROVIDERS: ATTEND Internal Medicine
DX: Z12.31 Encounter for screening mammogram for malignant neoplasm of breast (principal)
CPT/HCPCS: 77063; 77067

== ENCOUNTER 2022-12-24 08:12 | Day surgery (SDC) | payer BC, OTHER ==
[~2022-12-24] VITALS: Ht 162.5 cm; Wt 99.5 kg
[2022-12-24] MEDS ORDERED: LIDOCAINE 1% INJ 20 ML VIAL INJ ONE (08:30)
[2022-12-24] MEDS ORDERED: LIDOCAINE 1% INJ 20 ML VIAL ONE (08:32)
[2022-12-24 08:37] VITALS: BP 113/58
--- NOTE | 2022-12-24 09:16 | Implantation of Loop Monitor ---
Implant of Loop Monitior IMPLANTATION OF LOOP MONITOR REPORT DATE OF PROCEDURE: 12/24/22 PREOP DIAGNOSIS: Paroxysmal atrial fibrillation POSTOP DIAGNOSIS: Paroxysmal atrial fibrillation PROCEDURE DETAILS: The patient is a 62 female with history of paroxysmal atrial fibrillation requiring long-term surveillance. Therefore implantable loop recorder was discussed and agreed with the patient. Informed consent was taken. All risks and complications were discussed at length. The patient was draped and prepped in the usual sterile fashion. Local anesthesia was lidocaine, which was given in the substernal area close to the 4th intercostal space. Loop monitor [employer] with serial number [id number] was implanted according to the protocol. Steri- Strips were placed at the end of the procedure. There were no complications and the patient tolerated the procedure well. ANESTHESIA: Local anesthesia with lidocaine. COMPLICATIONS: None CONTRAST/FLUOROSCOPY: None CONCLUSION: Successful implantation of loop monitor with no complication FINAL DIAGNOSIS: Paroxysmal atrial fibrillation Palpitation Hypertension Hyperlipidemia MAGGIE CROCKETT MD Dec 24, 2022 09:16
== END 2022-12-24 09:25 | disposition home or self-care (01) ==
LOC: CATH 08:12
PROVIDERS: ATTEND Internal Medicine Cardiovascular Disease
DX: I48.0 Paroxysmal atrial fibrillation (principal); R00.2 Palpitations; I10 Essential (primary) hypertension; E78.2 Mixed hyperlipidemia; E66.9 Obesity, unspecified; E11.9 Type 2 diabetes mellitus without complications; E03.9 Hypothyroidism, unspecified; E87.6 Hypokalemia; E87.1 Hypo-osmolality and hyponatremia; I65.23 Occlusion and stenosis of bilateral carotid arteries; Z79.890 Hormone replacement therapy; Z79.899 Other long term (current) drug therapy; Z79.01 Long term (current) use of anticoagulants; Z79.84 Long term (current) use of oral hypoglycemic drugs; Z79.85 Long-term (current) use of injectable non-insulin antidiabetic drugs; Z68.37 Body mass index [BMI] 37.0-37.9, adult
CPT/HCPCS: 33285; C1764

== ENCOUNTER 2023-01-03 14:24 | Emergency (ER) | payer BC, OTHER ==
[~2023-01-03] VITALS: Ht 165 cm; Wt 93.8 kg
[2023-01-03 14:40] LABS: BASOPHILS # (AUTO) 0.1 10^3/uL (0.0-0.1); BASOPHILS % (AUTO) 1 % (0-10); EOSINOPHILS # (AUTO) 0.1 10^3/uL (0.0-0.3); EOSINOPHILS % (AUTO) 1 % (0-10); HEMATOCRIT 42 % (35-52); HEMOGLOBIN 13.8 g/dL (11.5-16.0); LYMPHOCYTES # (AUTO) 2.4 10^3/uL (1.0-4.0); LYMPHOCYTES % (AUTO) 24 % (12-44); MEAN CORPUSCULAR HEMOGLOBIN 27 pg (25-34); MEAN CORPUSCULAR HGB CONC 33 g/dL (32-36); MEAN CORPUSCULAR VOLUME 84 fL (80-99); MEAN PLATELET VOLUME 9.8 fL (9.0-12.2); MONOCYTES # (AUTO) 0.7 10^3/uL (0.0-1.0); MONOCYTES % (AUTO) 7 % (0-12); NEUTROPHILS # (AUTO) 6.7 10^3/uL (1.8-7.8); NEUTROPHILS % (AUTO) 66 % (42-75); PLATELET COUNT 260 10^3/uL (130-400); WHITE BLOOD COUNT 10.2 10^3/uL (4.3-11.0)
[2023-01-03] MEDS ORDERED: ASPIRIN 81 MG CHEWABLE TABLET PO ONE (14:45)
--- NOTE | 2023-01-03 14:47 | Diagnostic Imaging Report ---
Indication: Chest pain Portable chest 2:30 PM There is a loop recorder projecting over the left side chest. Heart size and pulmonary vascularity are normal. Lungs are clear. There are no effusions or pneumothoraces. IMPRESSION: No acute abnormalities in the chest Dictated by: Dictated on workstation # [id number]
[2023-01-03 14:48] LABS: ALBUMIN 4.1 GM/DL (3.2-4.5)
[2023-01-03 14:49] LABS: CHLORIDE 106 MMOL/L (98-107); POTASSIUM 3.3 MMOL/L (3.6-5.0); SODIUM 141 MMOL/L (135-145)
[2023-01-03 14:50] LABS: CALCIUM 9.4 MG/DL (8.5-10.1)
[2023-01-03 14:51] LABS: GLUCOSE 106 MG/DL (70-105); TOTAL PROTEIN 7.7 GM/DL (6.4-8.2)
[2023-01-03 14:52] LABS: CARBON DIOXIDE 22 MMOL/L (21-32)
[2023-01-03 14:53] LABS: BILIRUBIN,TOTAL 0.5 MG/DL (0.1-1.0)
[2023-01-03 14:54] LABS: ALKALINE PHOSPHATASE 92 U/L (40-136)
[2023-01-03 14:55] LABS: CREATININE SERUM 1.25 MG/DL (0.60-1.30); GFR ESTIMATED 49
[2023-01-03 14:56] LABS: BUN/CREATININE RATIO 12; INR 1.2 (0.8-1.4); PROTHROMBIN TIME PATIENT 15.4 SEC (12.2-14.7)
[2023-01-03 14:57] LABS: ALANINE AMINOTRANSFERASE 25 U/L (0-55); MAGNESIUM 2.1 MG/DL (1.6-2.4)
--- NOTE | 2023-01-03 14:58 | ED Chest Pain ---
General Chief Complaint: Chest Pain Stated Complaint: CHEST PAIN Nursing Triage Note: CP SINCE THE , CANNOT GET COMFORTABLE. SOB, O2 AT NIGHT, UNABLE TO TAKE A DEEP BREATH Source: patient Exam Limitations: no limitations (SWETHA MTZ APRN) History of Present Illness Date Seen by Provider: Jan 03, 2023 Time Seen by Provider: 14:26 Initial Comments 62-year-old female presents to the ER with complaint of right-sided chest pain which has been present since 12/24/2022 after she had a loop recorder placed. The loop recorder was placed on the left side of the chest by Dr. Durbin, neurology. She states that her right chest hurts constantly, but states the pain is worse with a deep breath and with movement. Denies known injury. She describes the pain as stabbing. She states she came in today because the pain is much worse. She states that she saw Dr. Durbin 2 days ago on 01/01 and was told that this pain is not related to her heart. She denies current fever, abdominal pain, nausea, vomiting, diarrhea. States the pain is not pressure-like, denies radiation of pain. Does report feeling short of breath when taking a deep breath due to the pain. She states that on Thursday she had vomiting, and Thursday she had diarrhea. States that she has not had any symptoms since then. Past medical history includes atrial fibrillation, STEMI, hypertension, diabetes, hyperlipidemia, hypothyroidism. Denies tobacco use. (SWETHA MTZ APRN) Allergies and Home Medications Allergies Coded Allergies: morphine (Verified Allergy, Mild, RASH, ITCHING, AGITATION, 10/23/22) Patient has received Hydrocodone and Oxycodone in the past Patient Home Medication List Home Medication List Reviewed: Yes (SWETHA MTZ APRN) Apixaban (Eliquis) 5 Mg Tablet, 5 MG PO BID Prescribed by: AMY STERN on 10/26/22 1234 Aspirin (Aspirin EC) 81 Mg Tablet., 81 MG PO HS, (Reported) Entered as Reported by: MADIHA MENA on 07/19/19 1202 Atorvastatin Calcium (Atorvastatin Calcium) 20 Mg Tablet, 20 MG PO HS, (Re ported) Entered as Reported by: MADIHA MENA on 07/19/19 1206 Atorvastatin Calcium (Lipitor) 40 Mg Tablet, 40 MG PO DAILY Prescribed by: AMY STERN on 10/26/22 1236 Cyclobenzaprine HCl (Cyclobenzaprine HCl) 10 Mg Tablet, 10 MG PO TID Prescribed by: Swetha Garcia on 01/03/23 1611 Diltiazem HCl (Diltiazem 24Hr ER) 120 Mg Cap.er.24h, 120 MG PO DAILY Prescribed by: AMY STERN on 10/26/22 1234 Empagliflozin (Jardiance) 25 Mg Tablet, 25 MG PO HS, (Reported) Entered as Reported by: MADIHA MENA on 07/19/19 115 Estradiol (Estradiol Tablet) 1 Mg Tablet, 1 MG PO HS, (Reported) Entered as Reported by: MADIHA MENA on 07/19/19 115 Levothyroxine Sodium (Levothyroxine Sodium) 100 Mcg Tablet, 100 MCG PO HS, (Reported) Entered as Reported by: MADIHA MENA on 07/19/19 115 Lidocaine (Salonpas) 4 % Adh..patch, 1 EACH TP DAILY Prescribed by: Swetha Garcia on 01/03/23 1611 Metoprolol Succinate (Metoprolol Succinate) 25 Mg Tab.er.24h, 25 MG PO DAILY Prescribed by: AMY STERN on 10/26/22 1234 Montelukast Sodium (Montelukast Sodium) 10 Mg Tablet, 10 MG PO HS, (Reported) Entered as Reported by: MADIHA MENA on 07/19/19 115 Omeprazole (Omeprazole) 40 Mg Capsule.dr, 40 MG PO DAILY, (Reported) Entered as Reported by: KEITH PERSAUD on 01/22/22 155 Semaglutide (Ozempic) 0.25 Mg/0.2 Ml Pen.injctr, 0.5 MG SQ WEEK, (Reported) Entered as Reported by: KEITH PERSAUD on 01/22/22 155 Topiramate (Topiramate) 50 Mg Tablet, 50 MG PO DAILY, (Reported) Entered as Reported by: Forest Corbett on 10/25/22 1115 Venlafaxine HCl (Venlafaxine HCl ER) 150 Mg Cap.er.24h, 150 MG PO HS, (Reported) Entered as Reported by: MADIHA MENA on 07/19/19 1156 Review of Systems Review of Systems Constitutional: see HPI (SWETHA MTZ APRN) Past Xbdeiwl-Axdstm-Yayrnv Hx Patient Social History Tobacco Use?: No Use of E-Cig and/or Vaping dev: No Substance use?: No Alcohol Use?: No Pt feels they are or have been: No (SWETHA MTZ APRN) Immunizations Up To Date Tetanus Booster (TDap): More than 5yrs PED Vaccines UTD: No Influenza Vaccine Up-to-Date: Yes; Up-to-Date First/Initial COVID19 Vaccinat: '3 SHOTS" Second COVID19 Vaccination Ady: YES Third COVID19 Vaccination Date: YES (SWETHA MTZ APRN) Seasonal Allergies Seasonal Allergies: Yes (SWETHA MTZ APRN) Past Medical History Surgery/Hospitalization HX: DE,DIABETES TYPE 2, HTN, HYPOTHYROID, AFIB, DEPRESSION, HIGH CHOLESTEROL, ACID REFLUX HYSTER 2 C SECT, GB, APPY Surgeries: Yes (EGD/COLONOSCOPY) Appendectomy, Gallbladder, Hysterectomy, Oophorectomy Respiratory: Yes Asthma, Chronic Bronchitis, Sleep Apnea Currently Using CPAP: No Currently Using BIPAP: No Cardiac: Yes Atrial Fibrillation, Chronic Edema/Swelling, Heart Attack, High Cholesterol, Hypertension Neurological: Yes Headaches /Migraines Reproductive Disorders: No DIETETIC INTERN History: Menopausal Sexually Transmitted Disease: No Genitourinary: No Gastrointestinal: Yes Gastroesophageal Reflux, Ulcer Musculoskeletal: Yes (TORN MENISCUS, RUPTURED DISC) Degenerate Disk Disease, Chronic Back Pain Endocrine: Yes Hypothyroidsim, Diabetes, Non-Insulin dep HEENT: No Cancer: Yes Skin Did You Recieve Any Treatments: Yes What Type of Treatment Did You: Surgical Intervention Psychosocial: Yes Anxiety, Depression Integumentary: Yes (SKIN CANCER) Blood Disorders: No Adverse Reaction/Blood Tranf: No (SWETHA MTZ APRN) Family Medical History Abdominal aortic aneurysm MATERNAL GRANDMOTHER Cancer 03 FATHER (PANCREATIC) Cataract MATERNAL GRANDFATHER Chest pain 03 FATHER Congestive heart failure 03 FATHER Family history: Arthritis 03 MOTHER MATERNAL GRANDMOTHER Family history: Breast disease PATERNAL GRANDMOTHER1 Family history: Cardiovascular disease 03 MOTHER Family history: Diabetes mellitus 03 FATHER Family history: Gastrointestinal disease 03 FATHER Family history: Glaucoma 03 MOTHER Family history: Hypertension 03 FATHER Family history: Osteoporosis 03 MOTHER MATERNAL GRANDMOTHER Headache 03 MOTHER Hearing loss Heart disease 03 FATHER History of - respiratory disease 03 FATHER Human immunodeficiency virus (HIV) seropositivity 09 BROTHER Hypercholesterolemia 03 FATHER 03 MOTHER Myocardial infarction 03 FATHER Prostate cancer MATERNAL GRANDFATHER No Family History of: AIDS Alcoholism Aphasia Cancer of colon Congenital heart disease Cystic fibrosis Dementia Dysphagia Family history: Alzheimer's disease Family history: Thyroid disorder History of - anemia History of drug abuse Infertile Kidney disease Malignant neoplasm of lung Parkinson's disease Psychotic disorder Seizure disorder Stroke Tuberculosis Visual impairment No Pertinent Family Hx (SWETHA MTZ APRN) Physical Exam Vital Signs Vital Signs - First Documented 01/03/23 01/03/23 14:26 15:05 Temp 37.2 Pulse 93 Resp 18 B/P (MAP) 129/81 (97) Pulse Ox 96 O2 Delivery Room Air (CALI CRISTINA MD) Vital Signs Capillary Refill : Less Than 3 Seconds (SWETHA MTZ APRN) Height, Weight, BMI Height: 5'4.00" Weight: 206lbs. 7.0oz. 93.977127ox; 34.00 BMI Method:Stated General Appearance: No Apparent Distress, WD/WN Neck: Normal Inspection, Supple Respiratory: Lungs Clear, Normal Breath Sounds, No Accessory Muscle Use, No Respiratory Distress, Other (Right chest tender to palpation) Cardiovascular: Regular Rate, Rhythm Neurologic/Psychiatric: Alert, Normal Mood/Affect Skin: Normal Color, Warm/Dry (SWETHA MTZ APRN) Progress/Results/Core Measures Results/Orders Lab Results Laboratory Tests Test 01/03/23 14:30 Range/Units White Blood Count 10.2 4.3-11.0 10^3/uL Red Blood Count 5.04 3.80-5.11 10^6/uL Hemoglobin 13.8 11.5-16.0 g/dL Hematocrit 42 35-52 % Mean Corpuscular Volume 84 80-99 fL Mean Corpuscular Hemoglobin 27 25-34 pg Mean Corpuscular Hemoglobin Concent 33 32-36 g/dL Red Cell Distribution Width 14.8 H 10.0-14.5 % Platelet Count 260 130-400 10^3/uL Mean Platelet Volume 9.8 9.0-12.2 fL Immature Granulocyte % (Auto) 2 % Neutrophils (%) (Auto) 66 42-75 % Lymphocytes (%) (Auto) 24 12-44 % Monocytes (%) (Auto) 7 0-12 % Eosinophils (%) (Auto) 1 0-10 % Basophils (%) (Auto) 1 0-10 % Neutrophils # (Auto) 6.7 1.8-7.8 10^3/uL Lymphocytes # (Auto) 2.4 1.0-4.0 10^3/uL Monocytes # (Auto) 0.7 0.0-1.0 10^3/uL Eosinophils # (Auto) 0.1 0.0-0.3 10^3/uL Basophils # (Auto) 0.1 0.0-0.1 10^3/uL Immature Granulocyte # (Auto) 0.2 H 0.0-0.1 10^3/uL Prothrombin Time 15.4 H 12.2-14.7 SEC INR Comment 1.2 0.8-1.4 Activated Partial Thromboplast Time 33 24-35 SEC Sodium Level 141 135-145 MMOL/L Potassium Level 3.3 L 3.6-5.0 MMOL/L Chloride Level 106 98-107 MMOL/L Carbon Dioxide Level 22 21-32 MMOL/L Anion Gap 13 5-14 MMOL/L Blood Urea Nitrogen 15 7-18 MG/DL Creatinine 1.25 0.60-1.30 MG/DL Estimat Glomerular Filtration Rate 49 BUN/Creatinine Ratio 12 Glucose Level 106 H 70-105 MG/DL Calcium Level 9.4 8.5-10.1 MG/DL Corrected Calcium 9.3 8.5-10.1 MG/DL Magnesium Level 2.1 1.6-2.4 MG/DL Total Bilirubin 0.5 0.1-1.0 MG/DL Aspartate Amino Transf (AST/SGOT) 22 5-34 U/L Alanine Aminotransferase (ALT/SGPT) 25 0-55 U/L Alkaline Phosphatase 92 40-136 U/L Troponin I < 0.028 <0.028 NG/ML Total Protein 7.7 6.4-8.2 GM/DL Albumin 4.1 3.2-4.5 GM/DL (CALI CRISTINA MD) Vital Signs/I&O 01/03/23 01/03/23 01/03/23 01/03/23 14:26 15:05 15:27 16:29 Temp 37.2 Pulse 93 84 86 80 Resp 18 18 18 18 B/P (MAP) 129/81 (97) 100/66 (77) 106/62 (77) 102/55 Pulse Ox 96 97 98 94 O2 Delivery Room Air Room Air Room Air (CALI CRISTINA MD) Blood Pressure Mean: 97 Progress Progress Note : Progress Note Patient seen and evaluated, resting in bed, no acute distress. Based on exam and symptoms, this pain is likely musculoskeletal due to location of pain, increased pain with palpation, increased pain with movement, but will do a cardiac work-up including CBC, CMP, magnesium, coags, troponin, chest x-ray, EKG. Toradol and Norflex ordered for pain. Nursing staff has interrogated patient's loop recorder. 1523 Labs and chest x-ray reviewed. CBC grossly normal. CMP shows slightly decreased potassium 3.3. Troponin negative. Magnesium normal 2.1. Coags show slightly elevated PT 15.4. Chest x-ray shows no acute abnormality. Lidocaine patch ordered as well. I do not think pain is related to patient's heart. This is likely musculoskeletal pain. Will wait to see if medications help pain. 1540 patient reports improvement in pain. Will discharge with prescription for Flexeril and lidocaine patches. Results discussed with patient. Will discharge after we get report from loop recorder. 1609 report [employer] for loop recorder shows intermittent atrial fibrillation. Patient is currently in sinus rhythm. Patient given results of loop recorder. Directed to continue medications as prescribed and follow-up with cardiology. Patient also instructed to follow-up with primary care provider regarding low potassium, patient states she used to take potassium daily but they stopped it. Discharge instructions and return precautions provided. (SWETHA MTZ APRN) Initial ECG Impression Date: Jan 03, 2023 Initial ECG Impression Time: 14:29 Initial ECG Rate: 92 Initial ECG Rhythm: Normal Sinus Initial ECG Intervals: Normal Initial ECG Impression: Normal Comment New significant Q waves, ST elevation, or T wave inversion. (SWETHA MTZ APRN) Diagnostic Imaging Diagonstic Imaging: Xray Plain Films/CT/US/NM/MRI: chest Comments [facility] [place], [place] NAME: FELIX MENDOZA MED REC#: [id number] PT STATUS: REG ER : 1960 PHYSICIAN: SWETHA MTZ APRN ADMIT DATE: 01/03/23/ER Signed Date of Exam:01/03/23 CHEST 1 VIEW, AP/PA ONLY Indication: Chest pain Portable chest 2:30 PM There is a loop recorder projecting over the left side chest. Heart size and pulmonary vascularity are normal. Lungs are clear. There are no effusions or pneumothoraces. IMPRESSION: No acute abnormalities in the chest Dictated by: Dictated on workstation # [id number] Dict: 01/03/23 1445 Trans: 01/03/23 1445 TCB [id number] Interpreted by: ODETTE GOLDSTEIN MD Electronically signed by: ODETTE GOLDSTEIN MD 01/03/23 1445 (SWETHA MTZ APRN) Departure Impression Primary Impression: Chest wall pain Additional Impression: Hypokalemia Disposition: 01 HOME, SELF-CARE Condition: Stable Departure-Patient Inst. Decision time for Depature: 16:09 (SWETHA MTZ APRN) Referrals: [facility] (PCP/Family) Primary Care Physician Patient Instructions: Chest Pain That Is Not Caused by the Heart (DC) Add. Discharge Instructions: Take Flexeril up to 3 times a day as needed for pain, it may make you sleepy. You may take 1000 mg of Tylenol every 8 hours as needed for pain. Use the lidocaine patches for pain, wear one for 12 hours, then you must be patch free for 12 hours prior to placing a new one. You may try ice or heat to the area as well, use whichever feels better. Follow-up with your primary care provider if symptoms continue. Return for any new, concerning, or worsening symptoms. All discharge instructions reviewed with patient and/or family. Voiced understanding. Scripts Cyclobenzaprine HCl (Cyclobenzaprine HCl) 10 Mg Tablet 10 MG PO TID, #30 TAB 0 Refills Prov: SWETHA MTZ APRN 01/03/23 Lidocaine (Salonpas) 4 % Adh..patch 1 EACH TP DAILY for 14 Days, #14 PATCH 0 Refills Prov: SWETHA MTZ APRN 01/03/23 ATTENDING PHYSICIAN NOTE: I was physically present as attending physician in the emergency department during the care of this patient, but I was not directly involved in the decision making or delivery of care for this patient. (CALI CRISTINA MD) SWETHA MTZ APRN Jan 03, 2023 14:58 CALI CRISTINA MD Jan 05, 2023 07:28
[2023-01-03] MEDS ORDERED: ORPHENADRINE 60 MG/2 ML (NORFLEX) AMP (ED ONLY) IV ONE (15:00)
[2023-01-03] MEDS ORDERED: KETOROLAC 15 MG/ML VIAL IVP ONE (15:00)
[2023-01-03] MEDS ORDERED: KCL 20 MEQ TAB (K-DUR) PO ONE (15:15)
[2023-01-03] MEDS ORDERED: LIDOCAINE 4% (SALONPAS) PATCH TOP ONE (15:30)
[2023-01-03] MEDS ORDERED: CYCL10TA25 PO (16:11)
[2023-01-03] MEDS ORDERED: LIDO1ADH74 TP (16:11)
[2023-01-03 16:29] VITALS: BP 102/55
== END 2023-01-03 16:31 | disposition home or self-care (01) ==
LOC: EDUNIT# 14:24 → ER 14:26
DX: R07.89 Other chest pain (principal); E87.6 Hypokalemia; I25.2 Old myocardial infarction; Z95.818 Presence of other cardiac implants and grafts
CPT/HCPCS: 36415; 71045; 80053; 83735; 84484; 85025; 85610; 85730; 93005; 93041; 96374; 96375

== ENCOUNTER 2023-01-28 12:27 | Outpatient (CLI) | payer BC, OTHER ==
[~2023-01-28 12:27] MED LIST changes: +LIDO1ADH74 TP
== END 2023-01-28 12:45 ==
LOC: SLEEP 12:27
PROVIDERS: ATTEND Otolaryngology Otolaryngology/Facial Plastic Surgery
DX: G47.33 Obstructive sleep apnea (adult) (pediatric) (principal); R06.83 Snoring
CPT/HCPCS: G0399